=== PATIENT | female | born 1955 | race Caucasian/White ===

== ENCOUNTER 2023-10-18 14:17 | Inpatient (IN) | payer MEDICARE, OTHER, SELFPAY ==
[2023-10-18] VITALS (25 sets, daily range): BP systolic 158–188; BP diastolic 91–129; PULSE 52–65; RESP 16–20; TEMP 36.4–36.6; O2SAT 92–100; BMI 30.2; BMI 31.0
--- NOTE | 2023-10-18 15:05 | ED_ITS ---
HPI - General Adult General Chief complaint: Weakness Stated complaint: can't put weight on R leg Time Seen by Provider: 10/18/23 14:58 History of Present Illness HPI narrative: Patient presents to the emergency department complaining of right leg weakness. Patient states yesterday while on a walk it became hard to use her right leg. Patient has no pain in her leg at that time and continues to not have any pain however weakness has gotten worse. Patient has no facial droop and equal drip strength. 61-year-old woman presenting to the emergency department concern of right leg weakness. She is having increased difficulty of bearing weight on this right leg. Symptoms seem to have begun with some right-sided leg weakness yesterday morning on a walk with her . He accompanies her here today. She has not experienced any pain. He did notice her to be dragging her right leg a little bit while they were walking. I noticed her to be slurring her speech a little on initial evaluation and he says yes that seems to have began yesterday as well. Underlying history of diabetes. Also history of renal failure to some degree with last creatinine measured over 4. She is in line for renal transplant. Is receiving this care through [facility] but is an [facility] patient in clinic. In 2015 she did have a small, as gestured I believe left-sided stroke and there is a clot present that has been followed with [place]. No difficulty breathing or sensation of tongue swelling or throat closure. No seizure history Related Data Home Medications ?Medication ?Instructions ?Recorded ?Confirmed aspirin 325 mg tablet,delayed 325 mg PO DAILY 10/18/23 10/18/23 release atorvastatin 40 mg tablet 40 mg PO DAILY 10/18/23 10/18/23 calcium citrate 500 mg PO DAILY 10/18/23 10/18/23 cholecalciferol (vitamin D3) 25 25 mcg PO DAILY 10/18/23 10/18/23 mcg (1,000 unit) capsule glimepiride 1 mg tablet 1 mg PO DAILY 10/18/23 10/18/23 latanoprost 0.005 % eye drops 1 drp ophthalmic (eye) QPM 10/18/23 10/18/23 losartan 100 mg tablet 100 mg PO DAILY 10/18/23 10/18/23 tyghfxog-xco-qtogp2 250 mg-dha 90 1 cap PO DAILY 10/18/23 10/18/23 mg-epa 160 sp-ovdl-opuw-zeax capsule (Ocuvite Adult 50 Plus) omega 4-xqm-dzm-fish oil 1,000 mg 1 cap PO DAILY 10/18/23 10/18/23 (120 mg-180 mg) capsule (Fish Oil) sitagliptin phosphate 25 mg tablet 25 mg PO DAILY 10/18/23 10/18/23 (Januvia) timolol maleate 0.5 % eye drops 1 drp ophthalmic (eye) BID 10/18/23 10/18/23 Allergies Allergy/AdvReac Type Severity Reaction Status Date / Time No Known Drug Allergies Allergy Verified 10/18/23 14:27 Review of Systems Status of ROS: Reports: 6 or more systems reviewed and unremarkable except as noted in History and below [facility] Social History Smoking Status: Never smoker Do you use any of these nicotine containing products: None How often do you have a drink containing alcohol: never How often do you have six or more drinks on one occasion: Never AUDIT-C Alcohol total score: 0 Non-prescribed substance use: denies use service: No Exam 2 Narrative: Exam Narrative: Pleasant. Rather still. A little distracted. Does seem to be slurring her speech; mildly dysarthric. Does not seem to have trouble with cognition however. At rest there appears to be some downgoing of the right side of her face/mouth. Is able to smile though with equal motor over face. Has not lost upper motor of her face. Pupils are brisk and equal. Head is atraumatic. Lungs are clear. Heart in slow but regular rate and rhythm. Holding her right arm seems to be favoring it a little bit across her lap. Is mildly weak throughout her right arm and right leg relative to the left. 1+ patellar DTR on the right and 2 on the left. No apparent sensory loss. Const: Vital Signs, click to edit/add: Vital Signs - 24 hr 10/18/23 14:20 10/18/23 16:14 10/18/23 16:15 Temperature 97.5 F L Pulse Rate 54 L 60 Pulse Rate [Left P ulse Oximeter] 61 Respiratory Rate 18 Blood Pressure 158/92 H Blood Pressure [Le ft Upper Arm] 176/103 H Pulse Oximetry 99 97 98 Oxygen Delivery Me thod Room Air 10/18/23 16:30 10/18/23 17:20 10/18/23 17:21 Temperature Pulse Rate 64 58 L 65 Pulse Rate [Left P ulse Oximeter] Respiratory Rate Blood Pressure 185/118 H Blood Pressure [Le ft Upper Arm] Pulse Oximetry 95 98 98 Oxygen Delivery Me thod 10/18/23 17:24 10/18/23 17:30 10/18/23 17:32 Temperature Pulse Rate 60 62 63 Pulse Rate [Left P ulse Oximeter] Respiratory Rate Blood Pressure 180/104 H 165/102 H Blood Pressure [Le ft Upper Arm] Pulse Oximetry 97 98 96 Oxygen Delivery Me thod 10/18/23 17:45 10/18/23 18:00 10/18/23 18:02 Temperature Pulse Rate 64 62 63 Pulse Rate [Left P ulse Oximeter] Respiratory Rate Blood Pressure 168/99 H Blood Pressure [Le ft Upper Arm] Pulse Oximetry 98 95 96 Oxygen Delivery Me thod 10/18/23 18:15 10/18/23 18:30 10/18/23 18:32 Temperature Pulse Rate 61 60 63 Pulse Rate [Left P ulse Oximeter] Respiratory Rate Blood Pressure 188/129 H Blood Pressure [Le ft Upper Arm] Pulse Oximetry 100 99 99 Oxygen Delivery Me thod 10/18/23 18:33 10/18/23 18:45 Temperature Pulse Rate 61 61 Pulse Rate [Left P ulse Oximeter] Respiratory Rate Blood Pressure Blood Pressure [Le ft Upper Arm] Pulse Oximetry 96 98 Oxygen Delivery Me thod Documenting provider has reviewed patient's vital signs: yes Course Vital Signs Vital signs: Initial Vital Signs Temperature 97.5 F L 10/18/23 14:20 Temperature Source Temporal Artery Scan 10/18/23 14:20 Pulse Rate 61 10/18/23 14:20 Pulse Rhythm Regular 10/18/23 14:20 Pulse Strength 3+ Normal 10/18/23 14:20 Respiratory Rate 18 10/18/23 14:20 Blood Pressure 176/103 H 10/18/23 14:20 Blood Pressure Mean 127 H 10/18/23 14:20 Blood Pressure Position Sitting 10/18/23 14:20 Pulse Oximetry 99 10/18/23 14:20 Oxygen Delivery Method Room Air 10/18/23 14:20 Vital Signs Temperature 97.5 F L 10/18/23 14:20 Pulse Rate 61 10/18/23 14:20 Respiratory Rate 18 10/18/23 14:20 Blood Pressure 176/103 H 10/18/23 14:20 Pulse Oximetry 99 10/18/23 14:20 Oxygen Delivery Method Room Air 10/18/23 14:20 Temperature 97.5 F L 10/18/23 14:20 Pulse Rate 61 10/18/23 18:45 Respiratory Rate 18 10/18/23 14:20 Blood Pressure 188/129 H 10/18/23 18:32 Pulse Oximetry 98 10/18/23 18:45 Oxygen Delivery Method Room Air 10/18/23 14:20 Medications Administered Medications: Discontinued Medications Generic Name Dose Route Start Last Admin Trade Name Freq PRN Reason Stop Dose Admin Amlodipine Besylate 2.5 mg 10/18/23 18:52 10/18/23 19:05 Amlodipine 5 Mg Tablet PO 10/18/23 18:53 2.5 mg ONCE ONE Administration Sodium Chloride 1,000 mls @ 1,000 mls/hr 10/18/23 15:20 10/18/23 19:00 0.9 % Sodium Chloride 1000 Ml IV 10/18/23 16:19 Infused .Q1H ONE Infusion Medical Decision Making MDM Narrative Medical decision making narrative: I would presume thromboembolic stroke. Duration is outside window of immediate intervention however imaging would be warranted. Does already apparently have a history of stroke. Is only maintained on daily aspirin. Maintain permissive hypertension the short term. IV hydration. Localizing symptoms I think suggest again infection or chemistry anomalies, seizure. No known neurological abnormalities like MS. Did discuss with Stroke Neuro due to duration. Decided to proceed with head CT does looking for any evidence of a bleed. And pending this result move forward with MRI and MRA noncontrast of the brain. In light of poor renal function, reviewed imaging with contrast that was done in [place] apparently this last February without significant vascular anomaly. Stroke Neuro reviewed noting some left MCA atherosclerosis and. 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 With these vascular studies in mind proceeded only with a non contrasted imaging as noted above By the time was ready for MRI, still pending CT imaging so this was canceled preferring MRI evaluation. MRI without clear findings of acute anomaly. Reviewed these images with Stroke Neuro. Unconvinced the blood pressure is is contributing to findings here today but recommendations would be to keep that around 180/100 or a little below. Anticipate admission for continued monitoring, repeat evaluation and likely repeat MRI if there is some evolution of infarct; more apparent on repeat imaging? Continue to hydrate. TECHNIQUE: Multiplanar T1, T2, FLAIR and diffusion-weighted imaging. FINDINGS: Moderate generalized volume loss. Patchy and confluent T2/FLAIR signal hyperintensity within the white matter of both cerebral hemispheres and josh consistent with chronic deep white matter small vessel ischemic changes. No intracranial hemorrhage. Compensatory mild dilatation ventricular system. Intracranial vascular flow voids are preserved. No mass effect. No midline shift. No restricted diffusion to suggest acute ischemia. Few scattered foci of susceptibility artifact within both cerebral hemispheres may represent chronic micro hemorrhages or mineral deposition. Arachnoid granulation adjacent to the right lateral frontal lobe. Bilateral orbits are unremarkable. Normal appearing sella. Visualized paranasal sinuses and mastoid air cells are unremarkable. IMPRESSION: 1. No acute intracranial abnormality. 2. Moderate generalized cerebral volume loss. Chronic deep white matter small vessel ischemic changes. 3. Scattered foci of susceptibility artifact within both cerebral hemispheres may represent chronic microhemorrhages or mineral deposition TECHNIQUE: [id number] MRA. 3D reconstructed images. FINDINGS: Bilateral carotid siphons and nez perce Cook are patent. There is a small 3 mm focal outpouching arising from the ophthalmic segment of the right intracranial ICA directed superiorly (best appreciated on series I image 108). Finding may represent a tiny aneurysm or prominent infundibulum. Visualized bilateral JUAN F and MCA circulations are patent with no focal high-grade stenosis or aneurysm. Bilateral EQUIPMENT SERVICE TECHNICIAN circulations are patent with no stenosis or aneurysm. Patent codominant vertebrobasilar system. IMPRESSION: 1. Small 3 mm focal outpouching arising from the ophthalmic segment of the right intracranial ICA directed superiorly may represent a prominent infundibulum or tiny aneurysm. Given the size, recommend interval follow-up in 6-12 months to confirm stability. Also consider consultation with neurointerventional radiology for follow-up. Outpatient consultation with the [facility] Neurointerventional Service can be arranged by calling [phone]. 2. Remainder of the MRA head is normal. Discussed with hospitalist for admission. Will give low-dose amlodipine. Medical Records Medical records reviewed: Yes I reviewed the patient's medical records Lab Data Lab results reviewed: Yes I reviewed the patient's lab results Labs: Lab Results 10/18/23 10/18/23 Range/Units 16:02 17:23 WBC 11.89 H (4.50-11.00) K/uL RBC 4.02 (4.00-5.20) m/uL Hgb 11.6 L (12.0-16.0) gm/dL Hct 35.1 (33.0-51.0) % MCV 87 (80-100) fL MCH 29 (26-34) pg MCHC 33 (32-36) gm/dL RDW Coeff of Leanne 13.4 (11.5-15.5) % Plt Count 301 (140-440) K/uL Neut % (Auto) 70.0 (42.0-72.0) % Lymph % (Auto) 18.4 L (20-44) % [place] % (Auto) 7.1 (0.0-11.0) % Eos % (Auto) 3.3 (0.0-7.0) % Baso % (Auto) 0.6 (0.0-3.0) % Neut # (Auto) 8.30 H (1.7-7.0) K/uL Lymph # (Auto) 2.20 (0.90-2.90) K/uL [place] # (Auto) 0.80 (0.00-0.90) K/UL Eos # (Auto) 0.40 (0.00-0.50) K/uL Baso # (Auto) 0.10 (0.00-0.30) K/uL Abs Immat Gran (auto) 0.10 (0.00-0.30) K/uL Imm/Tot Granulo (auto) 0.6 % Sodium 140 (135-149) mmol/L Potassium 4.0 (3.6-5.1) mmol/L Chloride 104 (96-114) mmol/L Carbon Dioxide 25 (20-32) mmol/L Anion Gap 11 (7-15) mEq/L BUN 48 H (7-30) mg/dL Creatinine 4.4 H (0.5-1.5) mg/dL Estimated Creat Clear 9.54 Estimated GFR 10 ml/min Glucose 115 (60-115) mg/dL Calcium 10.5 (8.4-10.6) mg/dL Magnesium 2.1 (1.5-2.6) mg/dL NT-Pro-B Natriuret Pep 389 pg/mL SARS-CoV-2 (PCR) Negative SARS-CoV-2 (Negative) Influenza Type A (PCR) Negative PCR FLU A (Negative) Influenza Type B (PCR) Negative PCR FLU B (Negative) Discharge Plan Discharge Clinical Impression: Acute right-sided weakness, Dysarthria, Hypertension Patient Disposition: Admitted As Observation Condition: Stable
[2023-10-18 16:08] LABS: Basophils Percent Auto 0.6 % (0.0-3.0); Eosinophils Percent Auto 3.3 % (0.0-7.0); Hematocrit 35.1 % (33.0-51.0); Hemoglobin* 11.6 gm/dL (12.0-16.0); Immature Granulocytes Pct Auto 0.6 %; Lymphocytes Percent Auto 18.4 % (20-44); Mean Corpuscular HGB Conc 33 gm/dL (32-36); Mean Corpuscular Hemoglobin 29 pg (26-34); Mean Corpuscular Volume 87 fL (80-100); Monocytes Percent Auto 7.1 % (0.0-11.0); Platelet Count* 301 K/uL (140-440); RDW Coefficient of Variation % 13.4 % (11.5-15.5); Red Blood Count 4.02 m/uL (4.00-5.20); White Blood Count* 11.89 K/uL (4.50-11.00)
[2023-10-18 16:10] LABS: Slide Review Reflex No
[2023-10-18 16:21] LABS: Chloride* 104 mmol/L (96-114); Sodium* 140 mmol/L (135-149)
[2023-10-18 16:23] LABS: Creatinine* 4.4 mg/dL (0.5-1.5); Est. Creatinine Clearance* 9.54; Estimated Glomerular Filt Rate 10 ml/min
[2023-10-18 16:24] LABS: Anion Gap 11 mEq/L (7-15); Blood Urea Nitrogen* 48 mg/dL (7-30); Calcium* 10.5 mg/dL (8.4-10.6); Carbon Dioxide* 25 mmol/L (20-32); Glucose* 115 mg/dL (60-115); Magnesium* 2.1 mg/dL (1.5-2.6)
--- NOTE | 2023-10-18 16:25 | CRLHL7_ITS ---
For Patients: As a result of the Century Cures Act, medical imaging exams and procedure reports are released immediately into your electronic medical record. You may view this report before your referring provider. If you have questions, please contact your health care provider. INDICATION: Right-sided weakness. COMPARISON: None. TECHNIQUE: [id number] MRA. 3D reconstructed images. FINDINGS: Bilateral carotid siphons and sauk-suiattle Cook are patent. There is a small 3 mm focal outpouching arising from the ophthalmic segment of the right intracranial ICA directed superiorly (best appreciated on series I image 108). Finding may represent a tiny aneurysm or prominent infundibulum. Visualized bilateral JUAN F and MCA circulations are patent with no focal high-grade stenosis or aneurysm. Bilateral COMMUNICATIONS PROJECT LEAD circulations are patent with no stenosis or aneurysm. Patent codominant vertebrobasilar system. IMPRESSION: 1. Small 3 mm focal outpouching arising from the ophthalmic segment of the right intracranial ICA directed superiorly may represent a prominent infundibulum or tiny aneurysm. Given the size, recommend interval follow-up in 6-12 months to confirm stability. Also consider consultation with neurointerventional radiology for follow-up. Outpatient consultation with the [facility] Neurointerventional Service can be arranged by calling [phone]. 2. Remainder of the MRA head is normal. Dictated by Mitchel Bustos MD @ 10/18/2023 5:36:15 PM (Electronically Signed)
--- NOTE | 2023-10-18 16:25 | CRLHL7_ITS ---
For Patients: As a result of the Century Cures Act, medical imaging exams and procedure reports are released immediately into your electronic medical record. You may view this report before your referring provider. If you have questions, please contact your health care provider. INDICATION: Right-sided weakness. Speech slurring. COMPARISON: None available at time of interpretation. TECHNIQUE: Multiplanar T1, T2, FLAIR and diffusion-weighted imaging. FINDINGS: Moderate generalized volume loss. Patchy and confluent T2/FLAIR signal hyperintensity within the white matter of both cerebral hemispheres and josh consistent with chronic deep white matter small vessel ischemic changes. No intracranial hemorrhage. Compensatory mild dilatation ventricular system. Intracranial vascular flow voids are preserved. No mass effect. No midline shift. No restricted diffusion to suggest acute ischemia. Few scattered foci of susceptibility artifact within both cerebral hemispheres may represent chronic micro hemorrhages or mineral deposition. Arachnoid granulation adjacent to the right lateral frontal lobe. Bilateral orbits are unremarkable. Normal appearing sella. Visualized paranasal sinuses and mastoid air cells are unremarkable. IMPRESSION: 1. No acute intracranial abnormality. 2. Moderate generalized cerebral volume loss. Chronic deep white matter small vessel ischemic changes. 3. Scattered foci of susceptibility artifact within both cerebral hemispheres may represent chronic microhemorrhages or mineral deposition Dictated by Mitchel Bustos MD @ 10/18/2023 5:32:02 PM (Electronically Signed)
[2023-10-18 16:34] LABS: NT Pro B Type NatriureticPept* 389 pg/mL
[2023-10-18] MEDS: 0.9 % SODIUM CHLORIDE 1000 ml 1,000 ML IV (16:35)
--- NOTE | 2023-10-18 16:47 | ED.NURSE ---
Pt is alert and oriented x3 at this time
[2023-10-18 18:14] LABS: PCR FLU A Negative PCR FLU A (Negative); PCR FLU B Negative PCR FLU B (Negative); SARS PCR* Negative SARS-CoV-2 (Negative)
[2023-10-18] MEDS: AMLODIPINE 5 MG TABLET 2.5 MG PO (19:05)
--- NOTE | 2023-10-18 19:35 | ED.NURSE ---
Report given to dyan MINAYA. Pt to room 255.
[2023-10-18 20:27] LABS: Appearance Urine Cloudy (Clear); Bilirubin Urine Negative (Negative); Blood Urine 1+ (Negative); Color Urine Yellow (Yellow); Glucose Urine Trace (Negative); Ketones Urine Negative (Negative); Leukocyte Esterase Urine 1+ (Negative); Nitrite Urine Negative (Negative); Protein Urine 3+ (Negative); Urobilinogen Urine 0.2 (0.2-1.0); pH Urine 6.5 (5.0-8.5)
--- NOTE | 2023-10-18 20:57 | PM.IMHP1 ---
Hospitalist- H&P: ANAI History of Present Illness Date Seen: 10/18/23 Chief complaint: can't put weight on R leg Narrative: Denita Osuna is a 68 year old female with past medical history of hypertension, DM, CKD stage 5, history of ischemic stroke (2014), history of cerebral and carotid aneurysm, JAJA on CPAP at home, history of right breast cancer status post surgery (2011) who presented to the ED due to symptoms of slurred speech and right-sided weakness. Patient states that she was in her usual state walking with her yesterday around 9:30 p.m. (she usually walks without any assistance or any devices) and then she started to feeling weakness over right lower extremity but still she made it to her bed and she slept. When she woke up the next day at 6 30 a.m. she noticed that her weakness is worse and that her speech is slurred and her brought her to the ED. patient states that her symptoms as similar to those that she suffered during her stroke in 2014. At that time she went to rehab and have weakness improved, almost back to normal. She is not sure what side was weak and 2014 but she she states mostly it was right sided weakness. Patient is on aspirin 325 mg and atorvastatin 40 mg since that time. Her last doses were today morning. Patient is hypertensive SBP in 180s but she denies any headache, visual changes, hearing changes, altered mental status, chest pain, respiratory problems. She denies any recent illnesses or fevers. At the ED, they contacted neuro stroke team who stated that patient is outside the window for thrombolytics, ordered an MRI and an MRA because of her CKD stage 5, both did not show any acute pathology. Review of Systems Status of ROS: Reports: 10 or more systems reviewed and unremarkable except as noted in History and below [facility] Medical History (Updated 10/18/23 @ 22:02 by Mary Roland MD) Hyperlipidemia ?E78.5 - Hyperlipidemia, unspecified (ICD-10) History of right breast cancer ?Z85.3 - Personal history of malignant neoplasm of breast (ICD-10) Carotid artery aneurysm ?I72.0 - Aneurysm of carotid artery (ICD-10) Cerebral aneurysm ?I67.1 - Cerebral aneurysm, nonruptured (ICD-10) JAJA on CPAP ?G47.33 - Obstructive sleep apnea (adult) (pediatric) (ICD-10) History of ischemic stroke ?Z86.73 - Personal history of transient ischemic attack (TIA), and cerebral infarction without residual deficits (ICD-10) CKD stage 5 secondary to hypertension ?I12.0 - Hypertensive chronic kidney disease with stage 5 chronic kidney disease or end stage renal disease (ICD-10) ?N18.5 - Chronic kidney disease, stage 5 (ICD-10) Diabetes ?E11.9 - Type 2 diabetes mellitus without complications (ICD-10) Social History Smoking Status: Never smoker Do you use any of these nicotine containing products: None How often do you have a drink containing alcohol: never How often do you have six or more drinks on one occasion: Never AUDIT-C Alcohol total score: 0 Non-prescribed substance use: denies use service: No Meds Home Medications and Allergies Home Medications ?Medication ?Instructions ?Recorded ?Confirmed ?Type aspirin 325 mg tablet,delayed 325 mg PO DAILY 10/18/23 10/18/23 History release atorvastatin 40 mg tablet 40 mg PO DAILY 10/18/23 10/18/23 History calcium citrate 500 mg PO DAILY 10/18/23 10/18/23 History cholecalciferol (vitamin D3) 25 25 mcg PO DAILY 10/18/23 10/18/23 History mcg (1,000 unit) capsule glimepiride 1 mg tablet 1 mg PO DAILY 10/18/23 10/18/23 History latanoprost 0.005 % eye drops 1 drp ophthalmic (eye) QPM 10/18/23 10/18/23 History losartan 100 mg tablet 100 mg PO DAILY 10/18/23 10/18/23 History mrphoivx-hzm-whahc9 250 mg-dha 90 1 cap PO DAILY 10/18/23 10/18/23 History mg-epa 160 wn-xvex-ygvx-zeax capsule (Ocuvite Adult 50 Plus) omega 1-rvg-sip-fish oil 1,000 mg 1 cap PO DAILY 10/18/23 10/18/23 History (120 mg-180 mg) capsule (Fish Oil) sitagliptin phosphate 25 mg tablet 25 mg PO DAILY 10/18/23 10/18/23 History (Januvia) timolol maleate 0.5 % eye drops 1 drp ophthalmic (eye) BID 10/18/23 10/18/23 History Allergies Allergy/AdvReac Type Severity Reaction Status Date / Time No Known Drug Allergies Allergy Verified 10/18/23 14:27 Exam Narrative: Exam Narrative: Physical exam GENERAL: Comfortable, no acute distress. HEAD AND NECK: Atraumatic, normocephalic CARDIOVASCULAR: RRR. Normal S1, S2. No murmurs. RESPIRATORY: Clear to auscultation B/L. Good air entry B/L. No wheezes or rhonchi. GASTROINTESTINAL: Not distended, not tender to palpation. NEUROLOGY: Alert, awake, oriented X 4. Slurred speech. Right lower extremity weakness, 4/5 (weakness against resistance), no drifting, strong dorsiflexion and extension. 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 Very mild drifting of right upper extremity. Left side was normal and no facial droop. PSYCH: Normal mood, normal affect. Const: Vital Signs, click to edit/add: Vital Signs - 24 hr 10/18/23 14:20 10/18/23 16:14 10/18/23 16:15 Temperature 97.5 F L Pulse Rate 54 L 60 Pulse Rate [Left P ulse Oximeter] 61 Respiratory Rate 18 Blood Pressure 158/92 H Blood Pressure [Le ft Upper Arm] 176/103 H Pulse Oximetry 99 97 98 Oxygen Delivery Me od Room Air 10/18/23 16:30 10/18/23 17:20 10/18/23 17:21 Temperature Pulse Rate 64 58 L 65 Pulse Rate [Left P ulse Oximeter] Respiratory Rate Blood Pressure 185/118 H Blood Pressure [Le ft Upper Arm] Pulse Oximetry 95 98 98 Oxygen Delivery Me thod 10/18/23 17:24 10/18/23 17:30 10/18/23 17:32 Temperature Pulse Rate 60 62 63 Pulse Rate [Left P ulse Oximeter] Respiratory Rate Blood Pressure 180/104 H 165/102 H Blood Pressure [Le ft Upper Arm] Pulse Oximetry 97 98 96 Oxygen Delivery Mo thod 10/18/23 17:45 10/18/23 18:00 10/18/23 18:02 Temperature Pulse Rate 64 62 63 Pulse Rate [Left P ulse Oximeter] Respiratory Rate Blood Pressure 168/99 H Blood Pressure [Le ft Upper Arm] Pulse Oximetry 98 95 96 [facility] 18:15 10/18/23 18:30 10/18/23 18:32 Temperature Pulse Rate 61 60 63 Pulse Rate [Left P ulse Oximeter] Respiratory Rate Blood Pressure 188/129 H Blood Pressure [Le ft Upper Arm] Pulse Oximetry 100 99 99 [facility] 10/18/23 18:33 10/18/23 18:45 10/18/23 19:00 Temperature Pulse Rate 61 61 64 Pulse Rate [Left P ulse Oximeter] Respiratory Rate Blood Pressure Blood Pressure [Le ft Upper Arm] Pulse Oximetry 96 98 99 [facility] 10/18/23 19:03 10/18/23 19:15 Temperature Pulse Rate 65 61 Pulse Rate [Left P ulse Oximeter] Respiratory Rate Blood Pressure 172/103 H Blood Pressure [Le ft Upper Arm] Pulse Oximetry 99 97 Oxygen Delivery [facility] Hospitalist - H&P: Result Labs Labs: Short CBC 10/18/23 Range/Units 16:02 WBC 11.89 H (4.50-11.00) K/uL Hgb 11.6 L (12.0-16.0) gm/dL Hct 35.1 (33.0-51.0) % Plt Count 301 (140-440) K/uL BMP 10/18/23 16:02 Sodium 140 Potassium 4.0 Chloride 104 Carbon Dioxide 25 BUN 48 H Creatinine 4.4 H Glucose 115 Calcium 10.5 Urine 10/18/23 Range/Units Unknown Urine Color Yellow (Yellow) Urine Appearance Cloudy A (Clear) Urine pH 6.5 (5.0-8.5) Ur Specific R[place]auer 1.020 (1.000-1.030) Urine Protein 3+ A (Negative) Urine Glucose (UA) Trace A (Negative) Imaging MRI - head: Radiologist's impression: Brain MRI TECHNIQUE: Multiplanar T1, T2, FLAIR and diffusion-weighted imaging. FINDINGS: Moderate generalized volume loss. Patchy and confluent T2/FLAIR signal hyperintensity within the white matter of both cerebral hemispheres and josh consistent with chronic deep white matter small vessel ischemic changes. No intracranial hemorrhage. Compensatory mild dilatation ventricular system. Intracranial vascular flow voids are preserved. No mass effect. No midline shift. No restricted diffusion to suggest acute ischemia. Few scattered foci of susceptibility artifact within both cerebral hemispheres may represent chronic micro hemorrhages or mineral deposition. Arachnoid granulation adjacent to the right lateral frontal lobe. Bilateral orbits are unremarkable. Normal appearing sella. Visualized paranasal sinuses and mastoid air cells are unremarkable. IMPRESSION: 1. No acute intracranial abnormality. 2. Moderate generalized cerebral volume loss. Chronic deep white matter small vessel ischemic changes. 3. Scattered foci of susceptibility artifact within both cerebral hemispheres may represent chronic microhemorrhages or mineral deposition Dictated by Mitchel Bustos MD @ 10/18/2023 5:32:02 PM Brain MRA TECHNIQUE: Bzfx-sj-drkafx MRA. 3D reconstructed images. FINDINGS: Bilateral carotid siphons and [place] are patent. There is a small 3 mm focal outpouching arising from the ophthalmic segment of the right intracranial ICA directed superiorly (best appreciated on series I image 108). Finding may represent a tiny aneurysm or prominent infundibulum. Visualized bilateral JUAN F and MCA circulations are patent with no focal high-grade stenosis or aneurysm. Bilateral NAIL EXPERT circulations are patent with no stenosis or aneurysm. Patent codominant vertebrobasilar system. IMPRESSION: 1. Small 3 mm focal outpouching arising from the ophthalmic segment of the right intracranial ICA directed superiorly may represent a prominent infundibulum or tiny aneurysm. Given the size, recommend interval follow-up in 6-12 months to confirm stability. Also consider consultation with neurointerventional radiology for follow-up. Outpatient consultation with the [facility] Neurointerventional Service can be arranged by calling [phone]. 2. Remainder of the MRA head is normal. Dictated by Mitchel Bustos MD @ 10/18/2023 5:36:15 PM Assessment and Plan Assessment and plan (1) Acute right-sided weakness: Problem comment: -suspect acute ischemic stroke versus recrudescence of her previous stroke. -ED contacted neuro stroke team who stated that patient is outside the window for thrombolytics. -Brain MRI and an MRA because of her CKD stage 5, both did not show any acute pathology. -Treat BP only if > 180/100 per Neurologist recs (contacted by ED). -will keep NPO for now except for necessary oral meds. Needs speech evaluation -continue aspirin 325 mg (home dose) and statin. -neurologist recommended repeating brain MRI tomorrow. -ordered PT/OT Status: Acute (2) History of ischemic stroke: Problem comment: -ischemic stroke in 2014, followed by 3 months of PT/rehab. -patient states that she almost does not have any residual deficits from her previous stroke. -on aspirin 325 mg and atorvastatin 40 at home. Status: Acute (3) Hypertensive emergency: Problem comment: - On full dose ARB at home - previously on thiazide but stopped as she is sensitive to dehydration -S/P amlodipine 2.5 mh once at ED -Treat BP only if > 180/100 per Neurologist recs (contacted by ED). -will hold losartan for now, mostly to be resumed tomorrow after permissive hypertension is finished and her BMP labs at baseline. -Patient was seen by her room cooler installer a couple of days ago and the are continuing full-dose of losartan as she has no side effects. Status: Acute (4) Diabetes: Problem comment: - Hemoglobin A1c at 6.7 in Sep 2023 . on low dose, renal dosing for both Januvia and glimepiride. - will start Low dose ISS during this admission. Status: Acute (5) CKD stage 5 secondary to hypertension: Problem comment: -her baseline creatinine is 4.1; she has a glomerular filtration rate of 11 by MDRD giving her stage 5 chronic kidney disease - worsening kidney function this year; creatinine now up to 4s - kidney biopsy consistent with mostly hypertension damage as opposed to diabetes despite nephrotic range urine protein; likely to progress to end stage kidney disease - she is working with [facility] for transplant evaluation; possibly doing a shared partner transplant with her sister as a live donor Status: Chronic (6) JAJA on CPAP: Problem comment: -asked patient to bring her home CPAP. Status: Chronic (7) Cerebral aneurysm: Problem comment: -Cerebral MRA at this admission showed at small 3 mm focal outpouching arising from the ophthalmic segment of the right intracranial ICA directed superiorly may represent a prominent infundibulum or tiny aneurysm. Given the size, radiologist recommends an interval follow-up in 6-12 months to confirm stability. Also to consider consultation with neurointerventional radiology for follow-up. - radiologist recommendation: Outpatient consultation with the [facility] Neurointerventional Service can be arranged by calling [phone]. -will review patient's medical records and check if she is already following neurology/neuro interventional S services as an outpatient. Status: Suspected (8) Hyperlipidemia: Status: Chronic Assessment and Plan: On atorvastatin 40 mg q.day Total Time Spent Total Time Spent: TIME SPENT: TODAY I SPENT 75 MINUTES SEEING THE PATIENT, DISCUSSING THE PATIENT WITH ER STAFF, REVIEWING EXPANSE AND EPIC NOTES/DIAGNOSTICS, DISCUSSING THE CARE PLAN WITH OUR CARE TIME THAT INCLUDES PT/OT, PHARMACY, RT, AND DOCUMENTING MY IMPRESSIONS AND PLAN IN THE MEDICAL RECORD.
[2023-10-18] MEDS: SODIUM CHLORIDE 0.9 % (FLUSH) 10 ML SYRINGE 5 ML IVF (23:47)
[2023-10-18] MEDS: 0.9 % SODIUM CHLORIDE 1000 ml 1,000 ML 75 ML IV (23:47)
[2023-10-19] VITALS (13 sets, daily range): BP systolic 158–183; BP diastolic 86–118; PULSE 55–67; RESP 16–18; TEMP 36.6–36.9; O2SAT 95–99
[2023-10-19] MEDS: timoloL maleate 0.5 % 1 DROP EYE-BOTH ×3 (00:48→20:47)
--- NOTE | 2023-10-19 06:18 | PC.NURSE ---
Pt alert and oriented to self x3. Afebrile. Room air. Pt denies pain, chest pain, SOB, and N/V. Pt?s has facial symmetry, continues to have right sided weakness in right leg and right arm. Pt is up A2 Pivot to commode. Tolerating a NPO diet
[2023-10-19 07:08] LABS: Basophils Percent Auto 0.8 % (0.0-3.0); Eosinophils Percent Auto 2.9 % (0.0-7.0); Hematocrit 36.7 % (33.0-51.0); Hemoglobin* 12.1 gm/dL (12.0-16.0); Immature Granulocytes Pct Auto 0.3 %; Lymphocytes Percent Auto 16.9 % (20-44); Mean Corpuscular HGB Conc 33 gm/dL (32-36); Mean Corpuscular Hemoglobin 29 pg (26-34); Mean Corpuscular Volume 87 fL (80-100); Monocytes Percent Auto 6.3 % (0.0-11.0); Neutrophils Percent Auto 72.8 % (42.0-72.0); Platelet Count* 196 K/uL (140-440); RDW Coefficient of Variation % 13.6 % (11.5-15.5); Red Blood Count 4.22 m/uL (4.00-5.20); White Blood Count* 11.97 K/uL (4.50-11.00)
[2023-10-19 07:22] LABS: Albumin* 4.2 g/dL (3.3-5.0)
[2023-10-19 07:23] LABS: Chloride* 109 mmol/L (96-114); Potassium* 3.7 mmol/L (3.6-5.1); Sodium* 141 mmol/L (135-149)
[2023-10-19 07:25] LABS: Anion Gap 9 mEq/L (7-15); Aspartate Amino Transferase* 33 U/L (12-35); Bilirubin Total* 0.7 mg/dL (0.1-1.5); Carbon Dioxide* 23 mmol/L (20-32); Creatinine* 3.9 mg/dL (0.5-1.5); Est. Creatinine Clearance* 10.77; Estimated Glomerular Filt Rate 12 ml/min; Total Protein* 7.3 g/dL (6.0-8.3)
[2023-10-19 07:26] LABS: Alanine Aminotransferase* 35 U/L (4-35); Alkaline Phosphatase* 63 U/L (40-150); Blood Urea Nitrogen* 45 mg/dL (7-30); Calcium* 9.4 mg/dL (8.4-10.6); Glucose* 117 mg/dL (60-115); Magnesium* 1.8 mg/dL (1.5-2.6); Phosphorus* 4.4 mg/dL (2.5-4.5)
[2023-10-19 08:13] LABS: Slide Review Reflex No
[2023-10-19] MEDS: ATORVASTATIN CALCIUM 40 MG TABLET PO (08:51)
[2023-10-19] MEDS: ASPIRIN EC 325 MG TABLET PO (08:51)
--- NOTE | 2023-10-19 10:05 | CRLHL7_ITS ---
For Patients: As a result of the Cures Act, medical imaging exams and procedure reports are released immediately into your electronic medical record. You may view this report before your referring provider. If you have questions, please contact your health care provider. INDICATION: Worsening right hemiparesis. TECHNIQUE: CT of the head without contrast. Coronal and sagittal reformats are included. COMPARISON: Brain MRI from 10/18/2023. FINDINGS: No CT evidence of acute cortical infarct. No loss of romero white matter differentiation. No hyperdense vessels to suggest intracranial thrombus. No acute intracranial hemorrhage. No mass effect or midline shift. No hydrocephalus or extra-axial collections. Patchy white matter hypoattenuation, typical for chronic microvascular ischemic change. Intracranial vascular calcifications. Moderate generalized parenchymal volume loss. No acute osseous abnormalities. Mild maxillary sinus mucosal thickening. Paranasal sinuses otherwise clear. Mild leftward nasal septal deviation. Advanced right TMJ arthrosis. Normal soft tissues. IMPRESSION: IMPRESSION:1. No CT evidence of acute cortical infarct. No acute intracranial hemorrhage. No other acute intracranial findings. Please note that all CT scans at this facility use dose modulation, iterative reconstruction, and/or weight-based dosing when appropriate to reduce radiation dose to as low as reasonably achievable. Dictated by Aiden Camejo MD @ 10/19/2023 11:26:49 AM (Electronically Signed)
[2023-10-19] MEDS: CLOPIDOGREL 75 MG TABLET 300 MG PO (11:09)
[2023-10-19 11:24] LABS: Cholesterol* 182 mg/dL (90-199)
[2023-10-19 11:25] LABS: HDL Cholesterol* 31 mg/dL (>=50); LDL Cholesterol Calculated 67 mg/dL (<100)
[2023-10-19 11:26] LABS: Triglycerides* 421 mg/dL (40-149)
[2023-10-19] MEDS: 0.9 % SODIUM CHLORIDE 1000 ml 1,000 ML 125 ML IV ×2 (14:10→23:02)
--- NOTE | 2023-10-19 14:49 | PC.NURSE ---
(Shift [id number]): Pt is alert and oriented. Pt is hypertensive, MD aware, continue to hold blood pressure medications. Otherwise other vitals within normal limits. Speech is slurred and grumbled with slight right facial droop. She is flaccid on the right side extremities, pt weaker throughout the shift, MD updated. She is able to take her medications with sips of liquids and tolerates well. MRI needs to be completed early next week per MD. Pt transfers with ceiling lift. Neuro consult completed, see hospitalist orders.
--- NOTE | 2023-10-19 15:30 | PM.IMPN1 ---
Progress Note: A&P Assessment and plan (1) Acute right-sided weakness: Problem details: -suspect acute ischemic stroke versus recrudescence of her previous stroke. -ED contacted neuro stroke team who stated that patient is outside the window for thrombolytics. -Brain MRI and an MRA because of her CKD stage 5, both did not show any acute pathology. -Treat BP only if > 180/100 per Neurologist recs (contacted by ED). -will keep NPO for now except for necessary oral meds. Needs speech evaluation -continue aspirin 325 mg (home dose) and statin. -neurologist recommended repeating brain MRI tomorrow since we do not have the availability, it is scheduled for Saturday. -ordered PT/OT/ST -patient and are agreeable to consider transitional care services verses inpatient rehabilitation -repeat stroke neural consultation 10/19/2023 recommend MRI on Saturday10/21/2023, dual anti-platelet therapy by adding clopidogrel 300 mg x 1 dose today and 75 mg daily thereafter for at least a month, recheck lipid panel and consider increasing dose of atorvastatin from usual dose of 40 mg daily to 80 mg once daily. Status: Acute (2) History of ischemic stroke: Problem details: -ischemic stroke in 2014, followed by 3 months of PT/rehab. -patient states that she almost does not have any residual deficits from her previous stroke. -on aspirin 325 mg and atorvastatin 40 at home. Status: Acute (3) Hypertensive emergency: Problem details: - On full dose ARB at home - previously on thiazide but stopped as she is sensitive to dehydration -S/P amlodipine 2.5 mh once at ED -Treat BP only if > 180/100 per Neurologist recs (contacted by ED). -will hold losartan for now, mostly to be resumed tomorrow after permissive hypertension is finished and her BMP labs at baseline. -Patient was seen by her hotel service manager a couple of days prior to admission on 10/18/2023 and is continuing full-dose of losartan as she has no side effects, although losartan is currently on hold. Status: Acute (4) Diabetes: Problem details: - Hemoglobin A1c at 6.7 in Sep 2023 . on low dose, renal dosing for both Januvia and glimepiride. - will start Low dose ISS during this admission. Status: Acute (5) CKD stage 5 secondary to hypertension: Problem details: -her baseline creatinine is 4.1; she has a glomerular filtration rate of 11 by MDRD giving her stage 5 chronic kidney disease - worsening kidney function this year; creatinine now up to 4s - kidney biopsy consistent with mostly hypertension damage as opposed to diabetes despite nephrotic range urine protein; likely to progress to end stage kidney disease - she is working with [facility] for transplant evaluation; possibly doing a shared partner transplant with her sister as a live donor Status: Chronic (6) JAJA on CPAP: Problem details: -asked patient to bring her home CPAP. Status: Chronic (7) Cerebral aneurysm: Problem details: -Cerebral MRA at this admission showed at small 3 mm focal outpouching arising from the ophthalmic segment of the right intracranial ICA directed superiorly may represent a prominent infundibulum or tiny aneurysm. Given the size, radiologist recommends an interval follow-up in 6-12 months to confirm stability. Also to consider consultation with neurointerventional radiology for follow-up. -radiologist recommendation: Outpatient consultation with the [facility] Neurointerventional Service can be arranged by calling [phone]. -is already following neurology services as an outpatient. Status: Suspected (8) Hyperlipidemia: Problem details: -if repeat LDL is greater than 70 then consider increasing atorvastatin from usual dose of 40 mg daily to 80 mg daily Status: Chronic Plan 1. Reviewed impression with patient and . 2. Reviewed recommendations with patient and . 3. Answered their questions are satisfaction. 4. They are agreeable with above stated plans and recommendations. Time Spent With Patient Total time spent: 45 minutes Subjective Date Seen: 10/19/23 Interval history: Admission history of present illness: ?68 year old female with past medical history of hypertension, DM, CKD stage 5, history of ischemic stroke (2014), history of cerebral and carotid aneurysm, JAJA on CPAP at home, history of right breast cancer status post surgery (2011) who presented to the ED due to symptoms of slurred speech and right-sided weakness. Patient states that she was in her usual state walking with her yesterday around 9:30 p.m. (she usually walks without any assistance or any devices) and then she started to feeling weakness over right lower extremity but still she made it to her bed and she slept. When she woke up the next day at 6 30 a.m. she noticed that her weakness is worse and that her speech is slurred and her brought her to the ED. patient states that her symptoms as similar to those that she suffered during her stroke in 2014. At that time she went to rehab and have weakness improved, almost back to normal. She is not sure what side was weak and 2015 but she she states mostly it was right sided weakness. Patient is on aspirin 325 mg and atorvastatin 40 mg since that time. Her last doses were today morning. Patient is hypertensive SBP in 180s but she denies any headache, visual changes, hearing changes, altered mental status, chest pain, respiratory problems. She denies any recent illnesses or fevers. At the ED, they contacted neuro stroke team who stated that patient is outside the window for thrombolytics, ordered an MRI and an MRA because of her CKD stage 5, both did not show any acute pathology.? Hospital day 2. Patient generally feels tired. Denies pain or discomforts of any sort. Notes that she can hardly use her right upper extremity and right lower extremity at all today compared to yesterday. Indeed on exam she has a dense right hemiparesis. Tolerating sips of water with her oral medications without coughing, sputtering, or gagging. She notes it is hard for her to speak. Her notes the same. adds that he thought perhaps her hearing might have been slightly decreased over the last couple of days because she was not processing or receiving when he was speaking with her about like she normally did. He also notes that over the last couple of days she has been dragging her right foot more. Exam Narrative: Exam Narrative: I examined her in her hospital room. She is lying in her hospital bed. Appears comfortable. Dense right hemiparesis. Unable to use right arm, hand, leg, feet. Left side with excellent strength, rapid alternating motion, [id number]. Slight facial asymmetry with slight right facial droop. Able to drink sips of water without any difficulties. Needs total assist with transfers. Unable to bear any weight due to dense right hemiparesis. Lungs clear to auscultation. Heart tones with regular rhythm. Abdomen is obese with active bowel sounds, soft, nontender. Trace edema bilateral lower extremities. Const: Vital Signs, click to edit/add: Vital Signs - 24 hr 10/18/23 16:14 10/18/23 16:15 10/18/23 16:30 Temperature Pulse Rate 54 L 60 64 Pulse Rate [Pulse Oximeter] Respiratory Rate Blood Pressure 158/92 H Blood Pressure [Le ft Arm] Pulse Oximetry 97 98 [facility] 10/18/23 17:20 10/18/23 17:21 10/18/23 17:24 Temperature Pulse Rate 58 L 65 60 Pulse Rate [Pulse Oximeter] Respiratory Rate Blood Pressure 185/118 H 180/104 H Blood Pressure [Le ft Arm] Pulse Oximetry 98 98 97 [facility] 10/18/23 17:30 10/18/23 17:32 10/18/23 17:45 Temperature Pulse Rate 62 63 64 Pulse Rate [Pulse Oximeter] Respiratory Rate Blood Pressure 165/102 H Blood Pressure [Le ft Arm] Pulse Oximetry 98 96 98 [facility] 10/18/23 18:00 10/18/23 18:02 10/18/23 18:15 Temperature Pulse Rate 62 63 61 Pulse Rate [Pulse Oximeter] Respiratory Rate Blood Pressure 168/99 H Blood Pressure [Le ft Arm] Pulse Oximetry 95 96 100 Oxygen Delivery [facility] 10/18/23 18:30 10/18/23 18:32 10/18/23 18:33 Temperature Pulse Rate 60 63 61 Pulse Rate [Pulse Oximeter] Respiratory Rate Blood Pressure 188/129 H Blood Pressure [Le ft Arm] Pulse Oximetry 99 99 96 [facility] 10/18/23 18:45 10/18/23 19:00 10/18/23 19:03 Temperature Pulse Rate 61 64 65 Pulse Rate [Pulse Oximeter] Respiratory Rate Blood Pressure 172/103 H Blood Pressure [Le ft Arm] Pulse Oximetry 98 99 99 Oxygen Delivery [facility] 10/18/23 19:15 10/18/23 19:45 10/18/23 19:45 Temperature 97.8 F Pulse Rate 61 Pulse Rate [Pulse Oximeter] 55 L Respiratory Rate 20 20 Blood Pressure Blood Pressure [Le ft Arm] 187/108 H Pulse Oximetry 97 99 99 Oxygen Delivery [facility] Room Air Room Air 10/18/23 20:00 10/18/23 21:30 10/18/23 21:30 Temperature 97.8 F Pulse Rate Pulse Rate [Pulse Oximeter] 54 L 54 L 54 L Respiratory Rate 18 Blood Pressure Blood Pressure [Le ft Arm] 174/91 H Pulse Oximetry 92 Oxygen Delivery Me thod Room Air 10/18/23 22:42 10/18/23 23:45 10/18/23 23:45 Temperature 97.6 F Pulse Rate 52 L Pulse Rate [Pulse Oximeter] 63 63 Respiratory Rate 16 Blood Pressure Blood Pressure [Le ft Arm] 174/91 H Pulse Oximetry 94 Oxygen Delivery Mi thod Room Air 10/19/23 03:45 10/19/23 03:45 10/19/23 06:00 Temperature 98.3 F Pulse Rate Pulse Rate [Pulse Oximeter] 57 L 57 L 55 L Respiratory Rate 18 Blood Pressure Blood Pressure [Le ft Arm] 158/109 H Pulse Oximetry 95 Oxygen Delivery Mi thod Room Air 10/19/23 06:58 10/19/23 07:00 10/19/23 07:30 Temperature 98.2 F Pulse Rate 55 L 55 L Pulse Rate [Pulse Oximeter] 59 L Respiratory Rate 16 Blood Pressure Blood Pressure [Le ft Arm] 163/91 H Pulse Oximetry 95 Oxygen Delivery Mi thod Room Air 10/19/23 07:35 10/19/23 10:45 Temperature 98.1 F Pulse Rate Pulse Rate [Pulse Oximeter] 59 L 59 L Respiratory Rate 16 Blood Pressure Blood Pressure [Le ft Arm] 183/86 H Pulse Oximetry 99 Oxygen Delivery Mi thod Room Air Labs Labs: Laboratory Results - last 24 hr 10/18/23 10/18/23 10/18/23 16:02 17:23 Unknown WBC 11.89 H RBC 4.02 Hgb 11.6 L Hct 35.1 MCV 87 MCH 29 MCHC 33 RDW Coeff of Leanne 13.4 Plt Count 301 Neut % (Auto) 70.0 Lymph % (Auto) 18.4 L [place] % (Auto) 7.1 Eos % (Auto) 3.3 Baso % (Auto) 0.6 Neut # (Auto) 8.30 H Lymph # (Auto) 2.20 [place] # (Auto) 0.80 Eos # (Auto) 0.40 Baso # (Auto) 0.10 Abs Immat Gran (auto) 0.10 Imm/Tot Granulo (auto) 0.6 Sodium 140 Potassium 4.0 Chloride 104 Carbon Dioxide 25 Anion Gap 11 BUN 48 H Creatinine 4.4 H Estimated Creat Clear 9.54 Estimated GFR 10 Glucose 115 Calcium 10.5 Phosphorus Magnesium 2.1 Total Bilirubin AST ALT Alkaline Phosphatase NT-Pro-B Natriuret Pep 389 Total Protein Albumin Triglycerides Cholesterol LDL Cholesterol, Calc HDL Cholesterol Urine Color Yellow Urine Appearance Cloudy A Urine pH 6.5 Ur Specific [place] 1.020 Urine Protein 3+ A Urine Glucose (UA) Trace A Urine Ketones Negative Urine Blood 1+ A Urine Nitrite Negative Urine Bilirubin Negative Urine Urobilinogen 0.2 Ur Leukocyte Esterase 1+ A SARS-CoV-2 (PCR) Negative SARS-CoV-2 Influenza Type A (PCR) Negative PCR FLU A Influenza Type B (PCR) Negative PCR FLU B Lab Acknowledgement 10/19/23 10/19/23 05:58 10:41 WBC 11.97 H RBC 4.22 Hgb 12.1 Hct 36.7 MCV 87 MCH 29 MCHC 33 RDW Coeff of Leanne 13.6 Plt Count 196 Neut % (Auto) 72.8 H Lymph % (Auto) 16.9 L [place] % (Auto) 6.3 Eos % (Auto) 2.9 Baso % (Auto) 0.8 Neut # (Auto) 8.70 H Lymph # (Auto) 2.00 [place] # (Auto) 0.80 Eos # (Auto) 0.30 Baso # (Auto) 0.10 Abs Immat Gran (auto) 0.00 Imm/Tot Granulo (auto) 0.3 Sodium 141 Potassium 3.7 Chloride 109 Carbon Dioxide 23 Anion Gap 9 BUN 45 H Creatinine 3.9 H Estimated Creat Clear 10.77 Estimated GFR 12 Glucose 117 H Calcium 9.4 Phosphorus 4.4 Magnesium 1.8 Total Bilirubin 0.7 AST 33 ALT 35 Alkaline Phosphatase 63 NT-Pro-B Natriuret Pep Total Protein 7.3 Albumin 4.2 Triglycerides 421 H Cholesterol 182 LDL Cholesterol, Calc 67 HDL Cholesterol 31 L Urine Color Urine Appearance Urine pH Ur Specific [place] Urine Protein Urine Glucose (UA) Urine Ketones Urine Blood Urine Nitrite Urine Bilirubin Urine Urobilinogen Ur Leukocyte Esterase SARS-CoV-2 (PCR) Influenza Type A (PCR) Influenza Type B (PCR) Lab Acknowledgement Test Added Imaging CT scan - head: Radiologist's impression: 10/19/2023: No acute intracranial hemorrhage or other acute abnormalities. MR Brain: Radiologist's impression: 10/18/2023: MR brain 1. No acute intracranial abnormality. 2. Moderate generalized cerebral volume loss. Chronic deep white matter small vessel ischemic changes. 3. Scattered foci of susceptibility artifact within both cerebral hemispheres may represent chronic microhemorrhages or mineral deposition MR angiogram of head 1. Small 3 mm focal outpouching arising from the ophthalmic segment of the right intracranial ICA directed superiorly may represent a prominent infundibulum or tiny aneurysm. Given the size, recommend interval follow-up in 6-12 months to confirm stability. Also consider consultation with neurointerventional radiology for follow-up. Outpatient consultation with the [facility] Neurointerventional Service can be arranged by calling [phone]. 2. Remainder of the MRA head is normal.
[2023-10-19] MEDS: LOSARTAN POTASSIUM 50 MG TABLET PO (18:28)
[2023-10-19] MEDS: LATANOPROST 0.005% OPHTH 1 DROP EYE-BOTH (18:49)
[2023-10-20] VITALS (10 sets, daily range): BP systolic 155–187; BP diastolic 96–109; PULSE 58–66; RESP 16–20; TEMP 36.7–37.1; O2SAT 96–99
--- NOTE | 2023-10-20 05:44 | PC.NURSE ---
Shift note: Pt has been in bed throughout the shift wit flaccid right sided paralysis. Turn and reposition Q2h. Blood sugar level at 0000 and 0600 were 99 and 89 respectively. Alert and oriented but had muffled voice. No neurological change in condition from yesterday. Pt has been on CPAP throughout the night. High Bp recorded tonight. Pt had adequate sleep.
[2023-10-20 07:39] LABS: Hematocrit 34.1 % (33.0-51.0); Hemoglobin* 11.2 gm/dL (12.0-16.0); Mean Corpuscular HGB Conc 33 gm/dL (32-36); Mean Corpuscular Hemoglobin 29 pg (26-34); Mean Corpuscular Volume 88 fL (80-100); Platelet Count* 248 K/uL (140-440); Red Blood Count 3.87 m/uL (4.00-5.20); White Blood Count* 10.49 K/uL (4.50-11.00)
[2023-10-20 07:40] LABS: Albumin* 3.7 g/dL (3.3-5.0); Chloride* 112 mmol/L (96-114); Sodium* 142 mmol/L (135-149)
[2023-10-20 07:41] LABS: Potassium* 3.8 mmol/L (3.6-5.1)
[2023-10-20 07:43] LABS: Anion Gap 10 mEq/L (7-15); Carbon Dioxide* 20 mmol/L (20-32); Creatinine* 3.7 mg/dL (0.5-1.5); Est. Creatinine Clearance* 11.35; Estimated Glomerular Filt Rate 13 ml/min; Slide Review Reflex No
[2023-10-20 07:44] LABS: Blood Urea Nitrogen* 40 mg/dL (7-30); Calcium* 8.3 mg/dL (8.4-10.6); Glucose* 92 mg/dL (60-115); Phosphorus* 4.1 mg/dL (2.5-4.5)
[2023-10-20] MEDS: 0.9 % SODIUM CHLORIDE 1000 ml 1,000 ML 125 ML IV (07:49)
[2023-10-20] MEDS: ASPIRIN EC 325 MG TABLET PO (08:24)
[2023-10-20] MEDS: CLOPIDOGREL 75 MG TABLET PO (08:24)
[2023-10-20] MEDS: ATORVASTATIN CALCIUM 40 MG TABLET PO (08:24)
[2023-10-20] MEDS: timoloL maleate 0.5 % 1 DROP EYE-BOTH ×2 (09:25→20:47)
--- NOTE | 2023-10-20 12:21 | PM.IMPN1 ---
Progress Note: A&P Assessment and plan (1) Hemiparesis affecting right side as late effect of cerebrovascular accident (CVA): Problem details: -suspect acute ischemic stroke versus recrudescence of her previous stroke --> SYMPTOMS PROGRESSED AFTER ADMISSION TO DENSE HEMIPARESIS -ED initially contacted neuro stroke team who stated that patient is outside the window for thrombolytics. -Brain MRI and an MRA because of her CKD stage 5, both did not show any acute pathology. WILL REPEAT 10/20 -Treat BP only if > 220/110 per Neurologist recs - EPIC NOTE REVIEWED. -sips/chips and necessary oral meds. Needs speech evaluation -dual anti-platelet therapy by adding clopidogrel 300 mg x 1 dose and 75 mg daily thereafter for at least a month -recheck lipid panel and consider increasing dose of atorvastatin from usual dose of 40 mg daily to 80 mg once daily (DONE 10/19) -echo ordered 10/19 -ordered PT/OT/ST -patient and are agreeable to consider transitional care services verses inpatient rehabilitation Status: Acute (2) History of ischemic stroke: Problem details: -ischemic stroke in 2014, followed by 3 months of PT/rehab. -patient states that she almost does not have any residual deficits from her previous stroke. -on aspirin 325 mg and atorvastatin 40 at home. Status: Acute (3) CKD stage 5 secondary to hypertension: Problem details: -her baseline creatinine is 4.1; she has a glomerular filtration rate of 11 by MDRD giving her stage 5 chronic kidney disease - worsening kidney function this year; creatinine now up to 4s - kidney biopsy consistent with mostly hypertension damage as opposed to diabetes despite nephrotic range urine protein; likely to progress to end stage kidney disease - she is working with [facility] for transplant evaluation; possibly doing a shared partner transplant with her sister as a live donor Status: Chronic (4) Hypertensive emergency: Problem details: - On full dose ARB at home - previously on thiazide but stopped as she is sensitive to dehydration -S/P amlodipine 2.5 mg once at ED -Treat BP only if > 220/110 per Neuro f/u bedside neuro eval -will hold losartan for now, mostly to be resumed tomorrow after permissive hypertension is finished and her BMP labs at baseline. -Patient was seen by her viscera washer a couple of days prior to admission on 10/18/2023 and is continuing full-dose of losartan as she has no side effects, although losartan is currently on hold. Status: Acute (5) Diabetes: Problem details: - Hemoglobin A1c at 6.7 in Sep 2023 . on low dose, renal dosing for both Januvia and glimepiride. - will start Low dose ISS during this admission. Status: Acute (6) JAJA on CPAP: Problem details: -asked patient to bring her home CPAP. Status: Chronic (7) Cerebral aneurysm: Problem details: -Cerebral MRA at this admission showed at small 3 mm focal outpouching arising from the ophthalmic segment of the right intracranial ICA directed superiorly may represent a prominent infundibulum or tiny aneurysm. Given the size, radiologist recommends an interval follow-up in 6-12 months to confirm stability. Also to consider consultation with neurointerventional radiology for follow-up. -radiologist recommendation: Outpatient consultation with the [facility] Neurointerventional Service can be arranged by calling [phone]. -is already following neurology services as an outpatient. Status: Suspected (8) Hyperlipidemia: Problem details: -if repeat LDL is greater than 70 then consider increasing atorvastatin from usual dose of 40 mg daily to 80 mg daily - increased 10/19 Status: Chronic Subjective Date Seen: 10/20/23 Interval history: Daily Progress Note - Hospital Medicine Day #: 3 CC: Acute ischemic stroke 24 HOUR UPDATE: dense hemiparesis slightly worse than yesterday; speech and swallow improved. tearful but resolved. Notable Labs, Micro, Rads, Interventions: CBC is unremarkable this morning. Creatinine is 3.7, creatinine clearance 11.3, GFR 13. Electrolytes are normal. Proteinuria noted in her urine. Negative urine culture. Echo has not yet been complete Objective: awake, alert, communicates her needs Vitals: see above Lungs: Clear. Cardiac: S1S2. Neuro: examined with PT bedside. dense hemiparesis in the right upper and lower extremity. some hip rotation is noted; some contraction along the trap and rhomboid. trunk control mostly intact. facial asymmetry noted. Disposition/Potential discharge - will need acute rehab Exam Const: Vital Signs, click to edit/add: Vital Signs - 24 hr 10/19/23 15:00 10/19/23 17:27 10/19/23 20:16 Temperature 97.8 F Pulse Rate 56 L 67 Pulse Rate [Pulse Oximeter] 64 Respiratory Rate 16 Blood Pressure [Le ft Arm] 183/104 H Pulse Oximetry 96 Oxygen Delivery Me thod Room Air 10/19/23 20:30 10/19/23 23:00 10/19/23 23:00 Temperature 98.4 F 98.3 F Pulse Rate Pulse Rate [Pulse Oximeter] 65 60 60 Respiratory Rate 18 18 18 Blood Pressure [Le ft Arm] 166/118 H 167/102 H Pulse Oximetry 96 95 Oxygen Delivery Mo thod Room Air Room Air 10/19/23 23:50 10/20/23 03:00 10/20/23 07:27 Temperature 98.5 F Pulse Rate 61 64 Pulse Rate [Pulse Oximeter] 66 Respiratory Rate 18 Blood Pressure [Le ft Arm] 170/96 H Pulse Oximetry 96 Oxygen Delivery Mo thod Room Air 10/20/23 07:45 10/20/23 07:50 10/20/23 11:08 Temperature 98.1 F 98.2 F Pulse Rate Pulse Rate [Pulse Oximeter] 65 65 63 Respiratory Rate 18 18 16 Blood Pressure [Le ft Arm] 155/97 H 165/101 H Pulse Oximetry 97 98 Oxygen Delivery Mo thod Room Air Room Air Labs Labs: Laboratory Results - last 24 hr 10/20/23 05:54 WBC 10.49 RBC 3.87 L Hgb 11.2 L Hct 34.1 MCV 88 MCH 29 MCHC 33 Plt Count 248 Sodium 142 Potassium 3.8 Chloride 112 Carbon Dioxide 20 Anion Gap 10 BUN 40 H Creatinine 3.7 H Estimated Creat Clear 11.35 Estimated GFR 13 Glucose 92 Calcium 8.3 L Phosphorus 4.1 Albumin 3.7
--- NOTE | 2023-10-20 14:48 | PC.NURSE ---
(Shift [id number]) Pt is alert and oriented. Pt is hypertensive, MD aware, and continues to hold blood pressure medications. Otherwise, other vitals within normal limits. Speech is slurred and grumbled with slight right facial droop. She is flaccid on the right-side extremities. She can take her medications with sips of liquids and tolerate it well. MRI needs to be completed early next week per MD. Pt transfers with ceiling lift, was up to chair today and tolerated well. at bedside. ?
[2023-10-20] MEDS: 5 % DEXTROSE/0.9% SOD CHLORIDE 1,000 ML 75 ML IV (17:18)
[2023-10-20] MEDS: LATANOPROST 0.005% OPHTH 1 DROP EYE-BOTH (17:18)
--- NOTE | 2023-10-20 18:54 | PC.NURSE ---
(Shift [id number]) - Pt is alert and oriented. Pt had no complaints of pain. Pts extremities on the right side are flaccid. Pt napped this afternoon after being up in the chair during the morning/early afternoon. ?Pt is allowed sips with medications. Pt is up with a ceiling lift. Pt?s evening blood sugar was 67; hospitalist notified different IV fluids started; see EMAR
[2023-10-21] VITALS (8 sets, daily range): BP systolic 105–198; BP diastolic 62–109; PULSE 56–84; RESP 16–18; TEMP 36.3–37.2; O2SAT 91–97
--- NOTE | 2023-10-21 | CRLHL7_ITS ---
For Patients: As a result of the Century Cures Act, medical imaging exams and procedure reports are released immediately into your electronic medical record. You may view this report before your referring provider. If you have questions, please contact your health care provider. INDICATION: Right-sided weakness. Technique Multiplanar multisequence MR imaging of the brain without intravenous contrast. COMPARISON: CT Brain 10/19/2023, MRI brain 10/18/2023. FINDINGS: Small to moderate diffusion restriction and FLAIR hyperintensity within the superior left hemipons, compatible with an acute to early subacute infarction. New punctate acute to subacute infarction within the right temporal occipital region (series 5 image 41). Mild diffuse cerebral volume loss. No midline shift. Patchy FLAIR hyperintensities in the supratentorial white matter, typical for moderate chronic microvascular ischemic changes. Chronic lacunar infarction right cerebellar hemisphere. Multiple punctate foci of susceptibility in the supratentorial parenchyma, typical for chronic microhemorrhages. The major arterial flow voids of the skull base are preserved. Thinning of the ocular lenses. Mild paranasal sinus mucosal thickening. Mastoid air cells are clear. Advanced right temporomandibular joint degenerative changes. IMPRESSION: 1. Small to moderate acute to early subacute infarction within the left hemipons. 2. Punctate acute to subacute infarction within the right temporooccipital region. 3. Moderate chronic microvascular ischemic changes and mild diffuse cerebral volume loss. 4. Multiple microhemorrhages in the brain demonstrate distribution typical for sequelae of hypertensive and cerebral amyloid angiography. Dictated by Ken Anderson MD @ 10/21/2023 9:22:16 AM (Electronically Signed)
[2023-10-21 06:55] LABS: Chloride* 114 mmol/L (96-114); Potassium* 3.7 mmol/L (3.6-5.1); Sodium* 141 mmol/L (135-149)
[2023-10-21 06:58] LABS: Anion Gap 10 mEq/L (7-15); Blood Urea Nitrogen* 37 mg/dL (7-30); Carbon Dioxide* 17 mmol/L (20-32); Creatinine* 3.4 mg/dL (0.5-1.5); Est. Creatinine Clearance* 12.35; Estimated Glomerular Filt Rate 14 ml/min; Glucose* 120 mg/dL (60-115)
[2023-10-21 06:59] LABS: Calcium* 7.8 mg/dL (8.4-10.6)
--- NOTE | 2023-10-21 09:02 | NUTR.NU ---
RDN with nutrition screen related to positive skin risk and chewing/swallowing issues. Patient admitted with possible CVA, having right sided weakness and swallowing concerns. Past medical history include Chronic Kidney Disease stage 5, stable and on list for transplant. Speech Evaluation ordered for today. Current height 5ft 2in; weight 173lb 6oz; BMI 31.7 kg/m2. Current diet is NPO. No intakes since admission. No nutrition interventions at this time given patient's current diet order, no intakes since admit, and speech evaluation being done today. RDN will continue to monitor and follow-up prn.
[2023-10-21] MEDS: 5 % DEXTROSE/0.9% SOD CHLORIDE 1,000 ML 75 ML IV ×2 (09:59→23:52)
[2023-10-21] MEDS: ATORVASTATIN CALCIUM 40 MG TABLET 80 MG PO ×2 (10:05→10:06)
[2023-10-21] MEDS: CLOPIDOGREL 75 MG TABLET PO (10:05)
[2023-10-21] MEDS: timoloL maleate 0.5 % 1 DROP EYE-BOTH ×2 (10:06→20:28)
[2023-10-21] MEDS: ASPIRIN EC 325 MG TABLET PO (10:06)
--- NOTE | 2023-10-21 10:33 | PM.IMPN1 ---
Progress Note: A&P Assessment and plan (1) Hemiparesis affecting right side as late effect of cerebrovascular accident (CVA): Problem details: -suspect acute ischemic stroke versus recrudescence of her previous stroke --> SYMPTOMS PROGRESSED AFTER ADMISSION TO DENSE HEMIPARESIS -ED initially contacted neuro stroke team who stated that patient is outside the window for thrombolytics. -On admission brain MRI and an MRA because of her CKD stage 5, both did not show any acute pathology. WILL REPEAT 10/20 - positive acute CVA findings. -Treat BP only if > 220/110 per Neurologist recs - EPIC NOTE REVIEWED. -sips/chips and necessary oral meds. Needs speech evaluation -dual anti-platelet therapy by adding clopidogrel 300 mg x 1 dose and 75 mg daily thereafter for at least a month -recheck lipid panel and consider increasing dose of atorvastatin from usual dose of 40 mg daily to 80 mg once daily (DONE 10/19) -echo PENDING -NEURO F/U PENDING -ordered PT/OT/ST -patient and are agreeable to consider transitional care services verses inpatient rehabilitation Status: Acute (2) History of ischemic stroke: Problem details: -ischemic stroke in 2014, followed by 3 months of PT/rehab. -patient states that she almost does not have any residual deficits from her previous stroke. -on aspirin 325 mg and atorvastatin 40 at home. Status: Acute (3) CKD stage 5 secondary to hypertension: Problem details: -her baseline creatinine is 4.1; she has a glomerular filtration rate of 11 by MDRD giving her stage 5 chronic kidney disease - worsening kidney function this year; creatinine now up to 4s - kidney biopsy consistent with mostly hypertension damage as opposed to diabetes despite nephrotic range urine protein; likely to progress to end stage kidney disease - she is working with [facility] for transplant evaluation; possibly doing a shared partner transplant with her sister as a live donor Status: Chronic (4) Hypertensive emergency: Problem details: - On full dose ARB at home - previously on thiazide but stopped as she is sensitive to dehydration -S/P amlodipine 2.5 mg once at ED -Treat BP only if > 220/110 per Neuro f/u bedside neuro eval -will hold losartan for now, mostly to be resumed tomorrow after permissive hypertension is finished and her BMP labs at baseline. -Patient was seen by her inspector insulation a couple of days prior to admission on 10/18/2023 and is continuing full-dose of losartan as she has no side effects, although losartan is currently on hold. Status: Acute (5) Diabetes: Problem details: - Hemoglobin A1c at 6.7 in Sep 2023 . on low dose, renal dosing for both Januvia and glimepiride. - will start Low dose ISS during this admission. Status: Acute (6) JAJA on CPAP: Problem details: -asked patient to bring her home CPAP. Status: Chronic (7) Cerebral aneurysm: Problem details: -Cerebral MRA at this admission showed at small 3 mm focal outpouching arising from the ophthalmic segment of the right intracranial ICA directed superiorly may represent a prominent infundibulum or tiny aneurysm. Given the size, radiologist recommends an interval follow-up in 6-12 months to confirm stability. Also to consider consultation with neurointerventional radiology for follow-up. -radiologist recommendation: Outpatient consultation with the [facility] Neurointerventional Service can be arranged by calling [phone]. -is already following neurology services as an outpatient. Status: Suspected (8) Hyperlipidemia: Problem details: -if repeat LDL is greater than 70 then consider increasing atorvastatin from usual dose of 40 mg daily to 80 mg daily - increased 10/19 Status: Chronic Subjective Date Seen: 10/21/23 Interval history: Daily Progress Note - Hospital Medicine Day #: 4 CC: Acute ischemic stroke (left hemipons; right temporoccipital) 24 HOUR UPDATE: dense hemiparesis slightly improved than yesterday; speech and swallow improved. tearful but resolved. Notable Labs, Micro, Rads, Interventions: F/U MRI this morning 1. Small to moderate acute to early subacute infarction within the left hemipons. 2. Punctate acute to subacute infarction within the right temporooccipital region. 3. Moderate chronic microvascular ischemic changes and mild diffuse cerebral volume loss. 4. Multiple microhemorrhages in the brain demonstrate distribution typical for sequelae of hypertensive and cerebral amyloid angiography. CBC is unremarkable this morning. Creatinine is 3.4, creatinine clearance 11.3, GFR 13. Electrolytes are normal. Proteinuria noted in her urine. Negative urine culture. Echo has not yet been complete Neuro telehealth consult needed in f/u to go over findings on MRI today Objective: awake, alert, communicates her needs Vitals: see above Lungs: Clear. Cardiac: S1S2. Neuro: Dense hemiparesis in the right upper and lower extremity. some hip rotation is noted; some contraction along the trap and rhomboid. flaccid RUE. trunk control mostly intact. facial asymmetry noted. Disposition/Potential discharge - will need acute rehab Exam Const: Vital Signs, click to edit/add: Vital Signs - 24 hr 10/20/23 11:08 10/20/23 15:19 10/20/23 15:46 Temperature 98.2 F 98.2 F Pulse Rate 61 Pulse Rate [Pulse Oximeter] 63 58 L Respiratory Rate 16 18 Blood Pressure [Le ft Arm] 165/101 H 174/105 H Pulse Oximetry 98 96 Oxygen Delivery Me thod Room Air Room Air 10/20/23 15:46 10/20/23 19:00 10/20/23 22:15 Temperature 98.7 F 98.2 F Pulse Rate Pulse Rate [Pulse Oximeter] 58 L 65 60 Respiratory Rate 20 20 Blood Pressure [Le ft Arm] 175/109 H 187/107 H Pulse Oximetry 99 96 Oxygen Delivery In thod Room Air Room Air 10/20/23 23:00 10/21/23 02:47 10/21/23 07:49 Temperature 98.6 F 98.6 F Pulse Rate 62 Pulse Rate [Pulse Oximeter] 64 58 L Respiratory Rate 18 16 Blood Pressure [Le ft Arm] 198/109 H 176/89 H Pulse Oximetry 91 95 Oxygen Delivery Me thod Room Air Room Air 10/21/23 07:53 Temperature Pulse Rate 56 L Pulse Rate [Pulse Oximeter] Respiratory Rate Blood Pressure [Le ft Arm] Pulse Oximetry Oxygen Delivery Me thod Labs Labs: Laboratory Results - last 24 hr 10/21/23 05:54 Sodium 141 Potassium 3.7 Chloride 114 Carbon Dioxide 17 L Anion Gap 10 BUN 37 H Creatinine 3.4 H Estimated Creat Clear 12.35 Estimated GFR 14 Glucose 120 H Calcium 7.8 L
--- NOTE | 2023-10-21 14:05 | RESP.RT ---
Home CPAP at bedside, Patient needs some assisstance for placement of nasal interface. Water chamber filled 1/2 way to patients request.
--- NOTE | 2023-10-21 14:29 | PC.NURSE ---
Pt alert and oriented. Mildly aphasic; slurred speech. Right side flaccid, normal sensation. Denies pain. Telemetry Sinus Bradycardia. MRI, Echocardiogram, Speech/Swallowing evaluation and Neurologist Consultation completed this shift.
--- NOTE | 2023-10-21 14:43 | PC.SOCIAL ---
Addendum entered by Shannan Melendez [facility] 10/21/23 15:45: Discharge planning: welfare worker sent updated notes to Hakeem at [facility] this afternoon; note included, PT/OT notes from today and the speech evaluation from today. Social work to follow-up as needed. Addendum entered by Shannan Melendez [facility] 10/21/23 15:14: Discharge planning: welfare worker heard back from Hakeem at [facility] whom confirmed they received the referral on the pt. They do not have an answer yet. Social work to follow-up as needed. Addendum entered by Shannan Melendez [facility] 10/21/23 14:53: Discharge planning: welfare worker called back this afternoon and left a message with Hakeem at [facility] asking for an update on whether they can accept the pt or not. Social work to follow-up as needed. Original Note: Discharge planning: welfare worker met with pt and her to discuss discharge planning. Pt is being recommended for acute rehab at discharge. Pt and her are interested in [facility]. welfare worker talked to Hakeem at [facility] who shared that they have openings right now and to send a referral and they would assess. welfare worker faxed the referral to [facility] at #[phone]. Social work to follow-up as needed.
--- NOTE | 2023-10-21 16:17 | CRLHL7_ITS ---
For Patients: As a result of the Century Cures Act, medical imaging exams and procedure reports are released immediately into your electronic medical record. You may view this report before your referring provider. If you have questions, please contact your health care provider. CLINICAL HISTORY: CVA TECHNIQUE: The carotid circulations and the vertebral arteries in the neck were examined with walker-scale ultrasound, color-flow and Doppler spectral analysis. Degrees of stenosis were determined using SRU 2002 Consensus Panel Criteria. FINDINGS: Sonographic images demonstrate mild bilateral atherosclerotic plaque formation without suspicious soft tissue mass. There was antegrade blood flow demonstrated within the vertebral arteries and the subclavian arteries demonstrated a normal triphasic waveform. The spectral Doppler tracings of the common carotid, internal and external carotid arteries demonstrate no abnormal turbulence or spectral broadening. There was no significant elevation of peak systolic blood flow which would indicate a hemodynamically-significant stenosis by SRU criteria. The ICA/CCA peak systolic velocity ratio measures 1.3 on the right and 1.6 on the left. IMPRESSION: Less than 50 percent stenosis of the internal carotid arteries bilaterally. Dictated by Hai Zavaleta MD @ 10/22/2023 8:45:53 AM (Electronically Signed)
[2023-10-21] MEDS: LATANOPROST 0.005% OPHTH 1 DROP EYE-BOTH (17:53)
[2023-10-22] VITALS (11 sets, daily range): BP systolic 164–190; BP diastolic 97–111; PULSE 59–81; RESP 16–18; TEMP 36.1–37.5; O2SAT 95–97
[2023-10-22 06:21] LABS: HCO3 VBG 19 mmol/L (21-28); PCO2 VBG 33 mmHG (40-50); PO2 VBG 76.7 mmHG (25-47); pH VBG 7.362 (7.32-7.43)
[2023-10-22 06:29] LABS: Hematocrit 32.1 % (33.0-51.0); Hemoglobin* 10.6 gm/dL (12.0-16.0); Mean Corpuscular HGB Conc 33 gm/dL (32-36); Mean Corpuscular Hemoglobin 29 pg (26-34); Mean Corpuscular Volume 88 fL (80-100); Platelet Count* 247 K/uL (140-440); Red Blood Count 3.67 m/uL (4.00-5.20)
--- NOTE | 2023-10-22 06:30 | PC.NURSE ---
End of shift note [id number]. Pt noted to be alert & oriented to person, place and time though has aphasia due to stroke. PERRLA. She requires use of ceiling lift for transferring and was noted to be incontinent of bladder several times throughout the shift though did not use call light. Blood pressures of 168/93 and 169/97. Blood glucose of 138 and 114 this shift. IV to L AC patent. Pt denied pain when asked throughout the shift. She requests up to assist of 2 staff with repositioning in bed. Telemetry in place with sinus bradycardia noted. Pt refused SCDs to bilateral lower extremities when approached/educated. Pt requires use of ceiling lift when transferring in and out of bed. Call light within reach. Mild aphasia and slurred speech noted which are not new findings per documentation. Restricted extremity to RUE with band in place. Pt slept well overnight and wore home CPAP.
[2023-10-22 06:42] LABS: Slide Review Reflex No
[2023-10-22 06:44] LABS: Albumin* 3.5 g/dL (3.3-5.0)
[2023-10-22 06:45] LABS: Chloride* 116 mmol/L (96-114); Potassium* 3.7 mmol/L (3.6-5.1); Sodium* 142 mmol/L (135-149)
[2023-10-22 06:47] LABS: Anion Gap 7 mEq/L (7-15); Bilirubin Total* 0.6 mg/dL (0.1-1.5); Carbon Dioxide* 19 mmol/L (20-32); Creatinine* 3.6 mg/dL (0.5-1.5); Est. Creatinine Clearance* 11.66; Estimated Glomerular Filt Rate 13 ml/min
[2023-10-22 06:48] LABS: Alanine Aminotransferase* 27 U/L (4-35); Alkaline Phosphatase* 65 U/L (40-150); Aspartate Amino Transferase* 28 U/L (12-35); Blood Urea Nitrogen* 34 mg/dL (7-30); Calcium* 7.9 mg/dL (8.4-10.6); Glucose* 115 mg/dL (60-115); Magnesium* 1.9 mg/dL (1.5-2.6); Phosphorus* 4.1 mg/dL (2.5-4.5); Total Protein* 6.2 g/dL (6.0-8.3)
--- NOTE | 2023-10-22 07:46 | P.IMPN_ITS ---
Progress Note: A&P Assessment and plan (1) Hemiparesis affecting right side as late effect of cerebrovascular accident (CVA): Problem details: Prestroke MODIFIED HI SCALE: 0 Discharge MODIFIED HI SCALE: 4 1) Diagnosis: acute ischemic stroke, in left josh, also right temporal/occipita l lobe 2) Cause: small vessel vs ESUS 3) Risk factor profile: diabetes, hypertension, hyperlipidemia, prior stroke 4) Comorbidities: chronic kidney disease, on the list for kidney transplant -initially admitted with RLE weakness --> SYMPTOMS PROGRESSED AFTER ADMISSION TO DENSE HEMIPARESIS -ED initially contacted neuro stroke team who stated that patient is outside the window for thrombolytics. -On admission brain MRI and an MRA did not show any acute pathology. REPEATED 10/20 - positive acute CVA findings. -Permissive HTN initially, now goal to achieve 140/90 slowly -Speech eval done; minced and moist, thin liquids and no straws - recommendation reviewed -Aspirin 81 mg + plavix 75 mg daily for acute treatment and secondary stroke prophylaxis x 3 weeks, then aspirin alone 325 mg daily. Would also plan for repeat brain MRI with [facility] in 6 months to compare to today's imaging - if blood pressure has been controlled and she has more microhemorrhages, would recommend staying on aspirin. If microhemorrhages are stable in number and size, could consider escalating her antiplatelet agent to Plavix 75 mg daily for stroke prevention. -recheck lipid panel and consider increasing dose of atorvastatin from usual dose of 40 mg daily to 80 mg once daily (DONE 10/19) -patient and are agreeable to consider transitional care services verses inpatient rehabilitation Status: Acute (2) History of ischemic stroke: Problem details: -ischemic stroke in 2014, followed by 3 months of PT/rehab. -patient states that she almost does not have any residual deficits from her previous stroke. -on aspirin 325 mg and atorvastatin 40 at home. Status: Acute (3) CKD stage 5 secondary to hypertension: Problem details: -her baseline creatinine is 4.1; she has a glomerular filtration rate of 11 by MDRD giving her stage 5 chronic kidney disease - worsening kidney function this year; creatinine now up to 4s - kidney biopsy consistent with mostly hypertension damage as opposed to diabetes despite nephrotic range urine protein; likely to progress to end stage kidney disease - she is working with [facility] for transplant evaluation; possibly doing a shared partner transplant with her sister as a live donor Status: Chronic (4) Hypertensive emergency: Problem details: - On full dose ARB at home - previously on thiazide but stopped as she is sensitive to dehydration -S/P amlodipine 2.5 mg once at ED -goal is now 140/90; restarting home losartan dosing Status: Acute (5) Diabetes: Problem details: - Hemoglobin A1c at 6.7 in Sep 2023 . on low dose, renal dosing for both Januvia and glimepiride. - will start Low dose ISS during this admission. Status: Acute (6) JAJA on CPAP: Problem details: -asked patient to bring her home CPAP. Status: Chronic (7) Cerebral aneurysm: Problem details: -Cerebral MRA at this admission showed at small 3 mm focal outpouching arising from the ophthalmic segment of the right intracranial ICA directed superiorly may represent a prominent infundibulum or tiny aneurysm. Given the size, radiologist recommends an interval follow-up in 6-12 months to confirm stability. Also to consider consultation with neurointerventional radiology for follow-up. -radiologist recommendation: Outpatient consultation with the [facility] Neurointerventional Service can be arranged by calling [phone]. -is already following neurology services as an outpatient. Status: Suspected (8) Hyperlipidemia: Problem details: -if repeat LDL is greater than 70 then consider increasing atorvastatin from usual dose of 40 mg daily to 80 mg daily - increased 10/19 Status: Chronic Subjective Date Seen: 10/22/23 Interval history: Daily Progress Note - Hospital Medicine Day #: 5 CC: Acute ischemic stroke (left hemipons; right temporoccipital) 24 HOUR UPDATE: dense hemiparesis same as yesterday; speech and swallow improved. tearful but resolved. Notable Labs, Micro, Rads, Interventions: Carotid U/S 10/20 Preliminary Report: Minimal atherosclerosis of the bilateral carotid bifurcations. No significant narrowing seen. F/U MRI 10/22/23 1. Small to moderate acute to early subacute infarction within the left hemipons. 2. Punctate acute to subacute infarction within the right temporooccipital region. 3. Moderate chronic microvascular ischemic changes and mild diffuse cerebral volume loss. 4. Multiple microhemorrhages in the brain demonstrate distribution typical for sequelae of hypertensive and cerebral amyloid angiography. CBC is unremarkable this morning. Creatinine is 3.6, creatinine clearance 11.3, GFR 13. Electrolytes are normal. Proteinuria noted in her urine. Negative urine culture. Objective: awake, alert, communicates her needs Vitals: see above Lungs: Clear. Cardiac: S1S2. Neuro: Dense hemiparesis in the right upper and lower extremity. some hip rotation is noted; some contraction along the trap and rhomboid. flaccid RUE. trunk control mostly intact. facial asymmetry noted. Disposition/Potential discharge - will need acute rehab Exam Const: Vital Signs, click to edit/add: Vital Signs - 24 hr 10/21/23 07:49 10/21/23 07:53 10/21/23 11:39 Temperature 98.6 F 98.8 F Pulse Rate 56 L Pulse Rate [Pulse Oximeter] 58 L 56 L Respiratory Rate 16 18 Blood Pressure [Le ft Arm] 176/89 H 175/101 H Pulse Oximetry 95 97 Oxygen Delivery Me thod Room Air Room Air 10/21/23 15:00 10/21/23 15:00 10/21/23 15:00 Temperature 99.0 F Pulse Rate 62 Pulse Rate [Pulse Oximeter] 73 73 Respiratory Rate 16 16 Blood Pressure [Le ft Arm] 169/102 H Pulse Oximetry 96 Oxygen Delivery Me thod Room Air 10/21/23 19:00 10/21/23 23:00 10/21/23 23:00 Temperature 97.3 F L Pulse Rate 59 L Pulse Rate [Pulse Oximeter] 84 61 Respiratory Rate 18 16 Blood Pressure [Le ft Arm] 105/62 Pulse Oximetry 95 Oxygen Delivery Me thod Room Air 10/21/23 23:50 10/22/23 02:58 Temperature 98.4 F 98.1 F Pulse Rate Pulse Rate [Pulse Oximeter] 61 63 Respiratory Rate 16 18 Blood Pressure [Le ft Arm] 168/93 H 169/97 H Pulse Oximetry 96 97 Oxygen Delivery Me thod CPAP CPAP Labs Labs: Laboratory Results - last 24 hr 10/22/23 06:04 WBC 10.00 RBC 3.67 L Hgb 10.6 L Hct 32.1 L MCV 88 MCH 29 MCHC 33 Plt Count 247 VBG pH 7.362 VBG pCO2 33 L VBG pO2 76.7 H VBG HCO3 19 L Sodium 142 Potassium 3.7 Chloride 116 H Carbon Dioxide 19 L Anion Gap 7 BUN 34 H Creatinine 3.6 H Estimated Creat Clear 11.66 Estimated GFR 13 Glucose 115 Calcium 7.9 L Phosphorus 4.1 Magnesium 1.9 Total Bilirubin 0.6 AST 28 ALT 27 Alkaline Phosphatase 65 Total Protein 6.2 Albumin 3.5
[2023-10-22] MEDS: ATORVASTATIN CALCIUM 40 MG TABLET 80 MG PO (08:34)
[2023-10-22] MEDS: LOSARTAN POTASSIUM 50 MG TABLET PO ×2 (08:35→11:17)
[2023-10-22] MEDS: ASPIRIN 81 MG TABLET EC PO (08:35)
[2023-10-22] MEDS: CLOPIDOGREL 75 MG TABLET PO (08:35)
[2023-10-22] MEDS: timoloL maleate 0.5 % 1 DROP EYE-BOTH ×2 (11:16→20:49)
--- NOTE | 2023-10-22 12:07 | PC.SOCIAL ---
Addendum entered by JERRELL Randle 10/22/23 14:26: Discharge planning: Received a call back from Hakeem at [facility] this afternoon after leaving a message with him around 1pm. Hakeem shared that the doctor now wanted to see PT/OT notes from today for the pt. blow off worker will send those over via fax. Social work to follow-up as needed. Original Note: Discharge planning: Received a call from Hakeem at [facility] early this morning and he was asking for a copy of the pt's echocardiogram that was done yesterday and the Neurology consult that was done yesterday. blow off worker faxed over the echocardiogram to #[phone]. blow off worker also let Hakeem know that the Neurology report is in [facility]. Hakeem was able to pull up the Neurology report in [facility]. He shared that the team of doctors are still reviewing the pt's referral. Social work to follow-up as needed.
[2023-10-22] MEDS: INSULIN ASPART 100 UNIT/ML SUBCUT (13:02)
[2023-10-22 14:47] LABS: Bacteria Urine Moderate; Squamous Epithelial Cell Urine Few (None-Few); WBC Urine >100 (0-5)
--- NOTE | 2023-10-22 15:39 | PC.NURSE ---
Nursing Care Hours: [id number] Pt this shift calm and cooperative, alert and oriented. No c/o pain. R side arm and LE flaccid. Arm elevated on pillow and foot supported by pillow to prevent foot drop. Discussed PROM with pt and spouse. HTN without symptoms. Pivot transfer 1-2 assist with gait belt. Up to chair for meals. Incontinent void changed x2.
[2023-10-22] MEDS: LATANOPROST 0.005% OPHTH 1 DROP EYE-BOTH (18:06)
--- NOTE | 2023-10-22 22:29 | PC.NURSE ---
End of Shift: Patient pleasant and cooperative, A&O. VSS, afebrile. Right side flaccid this shift. Slurred speech. Up to chair for meals. Patient denies pain this shift. Pivot transfer 1-2 assist with gait belt.
[2023-10-23] VITALS (9 sets, daily range): BP systolic 165–186; BP diastolic 95–109; PULSE 63–76; RESP 14–22; TEMP 37.1–37.5; O2SAT 94–96
[2023-10-23] MEDS: DOCUSATE SODIUM 100 MG CAPSULE PO (05:07)
--- NOTE | 2023-10-23 06:41 | PC.NURSE ---
End of shift note [id number]: Pt alert & oriented to person, place and time though has aphasia and delayed/slurred speech at times due to effects of stroke. PERRLA. Pt remains hypertensive this shift with B/Ps of 190/108 and 171/96 though has no hypertensive sx noted and has been denying pain throughout the shift. IVs in place to L AC and LUE and pt is currently SL. Pt incontinent of bladder several times throughout the shift. Pt has been afebrile and on RA throughout the shift. Pt on tele with NSR with prolonged QT noted which is not a new finding. PRN Colace given to promote bowel movement.
[2023-10-23 06:58] LABS: Hematocrit 31.3 % (33.0-51.0); Hemoglobin* 10.3 gm/dL (12.0-16.0); Mean Corpuscular HGB Conc 33 gm/dL (32-36); Mean Corpuscular Hemoglobin 29 pg (26-34); Mean Corpuscular Volume 88 fL (80-100); Platelet Count* 253 K/uL (140-440); Red Blood Count 3.55 m/uL (4.00-5.20); White Blood Count* 10.27 K/uL (4.50-11.00)
[2023-10-23 07:07] LABS: Slide Review Reflex No
[2023-10-23 07:19] LABS: Chloride* 115 mmol/L (96-114); Potassium* 3.6 mmol/L (3.6-5.1); Sodium* 143 mmol/L (135-149)
[2023-10-23 07:21] LABS: Creatinine* 3.6 mg/dL (0.5-1.5); Est. Creatinine Clearance* 11.66; Estimated Glomerular Filt Rate 13 ml/min
[2023-10-23 07:22] LABS: Anion Gap 11 mEq/L (7-15); Blood Urea Nitrogen* 41 mg/dL (7-30); Calcium* 8.9 mg/dL (8.4-10.6); Carbon Dioxide* 17 mmol/L (20-32); Glucose* 132 mg/dL (60-115)
[2023-10-23] MEDS: ASPIRIN 81 MG TABLET EC PO (08:54)
[2023-10-23] MEDS: ATORVASTATIN CALCIUM 40 MG TABLET 80 MG PO (08:55)
[2023-10-23] MEDS: METOPROLOL TARTRATE 25 MG TABLET PO ×2 (08:55→21:27)
[2023-10-23] MEDS: LOSARTAN POTASSIUM 50 MG TABLET 100 MG PO (08:55)
[2023-10-23] MEDS: CLOPIDOGREL 75 MG TABLET PO (08:55)
[2023-10-23] MEDS: bisacodyL 10 MG SUPP.RECT PR (08:56)
[2023-10-23] MEDS: timoloL maleate 0.5 % 1 DROP EYE-BOTH ×2 (09:04→22:56)
--- NOTE | 2023-10-23 09:27 | PM.IMPN1 ---
Progress Note: A&P Assessment and plan (1) Hemiparesis affecting right side as late effect of cerebrovascular accident (CVA): Problem details: Prestroke MODIFIED HI SCALE: 0 Discharge MODIFIED HI SCALE: 4 1) Diagnosis: acute ischemic stroke, in left josh, also right temporal/occipital lobe 2) Cause: small vessel vs ESUS 3) Risk factor profile: diabetes, hypertension, hyperlipidemia, prior stroke 4) Comorbidities: chronic kidney disease, on the list for kidney transplant -initially admitted with RLE weakness --> SYMPTOMS PROGRESSED AFTER ADMISSION TO DENSE HEMIPARESIS -ED initially contacted neuro stroke team who stated that patient is outside the window for thrombolytics. -On admission brain MRI and an MRA did not show any acute pathology. REPEATED 10/20 - positive acute CVA findings. -Permissive HTN initially, now goal to achieve 140/90 slowly -Speech eval done; minced and moist, thin liquids and no straws - recommendation reviewed -Aspirin 81 mg + plavix 75 mg daily for acute treatment and secondary stroke prophylaxis x 3 weeks, then aspirin alone 325 mg daily. Would also plan for repeat brain MRI with [facility] imaging in 6 months to compare to today's imaging - if blood pressure has been controlled and she has more microhemorrhages, would recommend staying on aspirin. If microhemorrhages are stable in number and size, could consider escalating her antiplatelet agent to Plavix 75 mg daily for stroke prevention. -recheck lipid panel and consider increasing dose of atorvastatin from usual dose of 40 mg daily to 80 mg once daily (DONE 10/19) -patient and are agreeable to consider transitional care services verses inpatient rehabilitation Status: Acute (2) History of ischemic stroke: Problem details: -ischemic stroke in 2014, followed by 3 months of PT/rehab. -patient states that she almost does not have any residual deficits from her previous stroke. -on aspirin 325 mg and atorvastatin 40 at home. Status: Acute (3) CKD stage 5 secondary to hypertension: Problem details: -her baseline creatinine is 4.1; she has a glomerular filtration rate of 11 by MDRD giving her stage 5 chronic kidney disease - worsening kidney function this year; creatinine now up to 4s - kidney biopsy consistent with mostly hypertension damage as opposed to diabetes despite nephrotic range urine protein; likely to progress to end stage kidney disease - she is working with [place] for transplant evaluation; possibly doing a shared partner transplant with her sister as a live donor Status: Chronic (4) Hypertensive emergency: Problem details: - On full dose ARB at home - previously on thiazide but stopped as she is sensitive to dehydration -S/P amlodipine 2.5 mg once at ED -goal is now 140/90; restarting losartan and adding metoprolol 25mg BID. Status: Acute (5) Diabetes: Problem details: - Hemoglobin A1c at 6.7 in Sep 2023 . on low dose, renal dosing for both Januvia and glimepiride. - will start Low dose ISS during this admission. Status: Acute (6) JAJA on CPAP: Problem details: -asked patient to bring her home CPAP. Status: Chronic (7) Cerebral aneurysm: Problem details: -Cerebral MRA at this admission showed at small 3 mm focal outpouching arising from the ophthalmic segment of the right intracranial ICA directed superiorly may represent a prominent infundibulum or tiny aneurysm. Given the size, radiologist recommends an interval follow-up in 6-12 months to confirm stability. Also to consider consultation with neurointerventional radiology for follow-up. -radiologist recommendation: Outpatient consultation with the [facility] Neurointerventional Service can be arranged by calling [phone]. -is already following neurology services as an outpatient. Status: Suspected (8) Hyperlipidemia: Problem details: -if repeat LDL is greater than 70 then consider increasing atorvastatin from usual dose of 40 mg daily to 80 mg daily - increased 10/19 Status: Chronic Subjective Date Seen: 10/23/23 Interval history: Daily Progress Note - Hospital Medicine Day #: 6 CC: Acute ischemic stroke (left hemipons; right temporoccipital) 24 HOUR UPDATE: dense hemiparesis same as yesterday; speech and swallow improved. tearful but resolved. Notable Labs, Micro, Rads, Interventions: Carotid U/S 10/20 Preliminary Report: Minimal atherosclerosis of the bilateral carotid bifurcations. No significant narrowing seen. F/U MRI 10/22/23 1. Small to moderate acute to early subacute infarction within the left hemipons. 2. Punctate acute to subacute infarction within the right temporooccipital region. 3. Moderate chronic microvascular ischemic changes and mild diffuse cerebral volume loss. 4. Multiple microhemorrhages in the brain demonstrate distribution typical for sequelae of hypertensive and cerebral amyloid angiography. CBC is unremarkable this morning. Hgb slow decline. 10.3. Creatinine is 3.6, creatinine clearance 11.3, GFR 13. Electrolytes are normal. Proteinuria noted in her urine. Negative urine culture. Objective: awake, alert, communicates her needs Vitals: see above Lungs: Clear. Cardiac: S1S2. Neuro: Dense hemiparesis in the right upper and lower extremity. some hip rotation is noted; some contraction along the trap and rhomboid. flaccid RUE. trunk control mostly intact. facial asymmetry noted. Disposition/Potential discharge - will need acute rehab Exam Const: Vital Signs, click to edit/add: Vital Signs - 24 hr 10/22/23 11:00 10/22/23 15:30 10/22/23 16:43 Temperature 99.3 F 99.5 F Pulse Rate Pulse Rate [Pulse Oximeter] 78 68 68 Respiratory Rate 18 18 18 Blood Pressure [le ft forearm] 177/99 H 175/102 H Pulse Oximetry 96 95 Oxygen Delivery Me thod Room Air Room Air 10/22/23 17:09 10/22/23 19:24 10/22/23 23:00 Temperature 98.7 F Pulse Rate 71 Pulse Rate [Pulse Oximeter] 81 69 Respiratory Rate 18 16 Blood Pressure [le ft forearm] 183/111 H Pulse Oximetry 97 Oxygen Delivery Me thod Room Air 10/22/23 23:18 10/22/23 23:21 10/23/23 02:38 Temperature 97.0 F L 98.9 F Pulse Rate 64 Pulse Rate [Pulse Oximeter] 69 74 Respiratory Rate 16 18 Blood Pressure [le ft forearm] 190/108 H 171/96 H Pulse Oximetry 96 94 Oxygen Delivery Me thod CPAP CPAP Labs Labs: Laboratory Results - last 24 hr 10/18/23 10/23/23 Unknown 06:10 WBC 10.27 RBC 3.55 L Hgb 10.3 L Hct 31.3 L MCV 88 MCH 29 MCHC 33 Plt Count 253 Sodium 143 Potassium 3.6 Chloride 115 H Carbon Dioxide 17 L Anion Gap 11 BUN 41 H Creatinine 3.6 H Estimated Creat Clear 11.66 Estimated GFR 13 Glucose 132 H Calcium 8.9 Urine RBC 5-10 A Urine WBC >100 A Ur Squamous Epith Cells Few Urine Bacteria Moderate A
--- NOTE | 2023-10-23 11:50 | PC.SOCIAL ---
Discharge planning: Pt was accepted to [facility] for transfer this Saturday. healthcare social worker informed the pt and her and they are thankful and in agreement for this plan. Pt needs to be to [facility] by noon on Saturday, 1pm at the latest. Non-emergent EMS will be set-up for Saturday to pick the pt up around 8am or 9am, so that the pt is there in plenty of time. Hakeem from [facility] emailed this worker a map of where the pt should be dropped off at and this worker gave a copy of it to the charge nurse to give to EMS on Saturday morning. healthcare social worker also gave the pt and her a copy of the map to keep. healthcare social worker also provided Hakeem from [facility] with the hospitalist desk phone number #[phone] for a peer to peer consult and the med/surg phone number #[phone] for a nurse to nurse consult. healthcare social worker updated the provider and charge nurse on duty today, as well. Social work to follow-up as needed.
[2023-10-23] MEDS: INSULIN ASPART 100 UNIT/ML SUBCUT ×3 (12:39→21:29)
[2023-10-23] MEDS: LATANOPROST 0.005% OPHTH 1 DROP EYE-BOTH (18:34)
--- NOTE | 2023-10-23 19:48 | PC.NURSE ---
End of Shift: Patient pleasant and cooperative, alert and oriented but aphasic/delayed. Patient vitally stable, lungs clear, BS WNL, IVs SL and intact. Patient denies pain. Patient 2 assist/walker, pivot to commode. Patient flaccid on right side. Patient at times incontinent of urine, patient had 2 BMs today. Patient tolerating regular diet. Blood sugars 117, 171,148,164. Tele=NSR with prolonged QT. Patient has spent a good amount of time up in chair today.
[2023-10-23] MEDS: SODIUM CHLORIDE 0.9 % (FLUSH) 10 ML SYRINGE 5 ML IVF (21:28)
[2023-10-24] VITALS (8 sets, daily range): BP systolic 140–172; BP diastolic 77–105; PULSE 56–78; RESP 16–22; TEMP 36.7–37.4; O2SAT 95–98
--- NOTE | 2023-10-24 06:32 | PC.NURSE ---
End of shift [id number]: A&O. Turn and repo q2h while in bed. Inc of urine. Sleeping between cares. Denies pain. Hypertensive VS otherwise stable. Pt requested no SCDs. Right arm and leg elevated on pillows.
[2023-10-24 07:04] LABS: Hematocrit 33.4 % (33.0-51.0); Mean Corpuscular HGB Conc 33 gm/dL (32-36); Mean Corpuscular Hemoglobin 29 pg (26-34); Mean Corpuscular Volume 88 fL (80-100); Platelet Count* 266 K/uL (140-440); Red Blood Count 3.81 m/uL (4.00-5.20); Slide Review Reflex No; White Blood Count* 10.82 K/uL (4.50-11.00)
[2023-10-24 07:22] LABS: Chloride* 114 mmol/L (96-114); Potassium* 3.8 mmol/L (3.6-5.1); Sodium* 143 mmol/L (135-149)
[2023-10-24 07:24] LABS: Creatinine* 3.9 mg/dL (0.5-1.5); Est. Creatinine Clearance* 10.77; Estimated Glomerular Filt Rate 12 ml/min
[2023-10-24 07:25] LABS: Anion Gap 12 mEq/L (7-15); Blood Urea Nitrogen* 42 mg/dL (7-30); Calcium* 8.7 mg/dL (8.4-10.6); Carbon Dioxide* 17 mmol/L (20-32); Glucose* 130 mg/dL (60-115)
[2023-10-24] MEDS: ATORVASTATIN CALCIUM 40 MG TABLET 80 MG PO (09:12)
[2023-10-24] MEDS: METOPROLOL TARTRATE 25 MG TABLET PO ×2 (09:12→19:00)
[2023-10-24] MEDS: CLOPIDOGREL 75 MG TABLET PO (09:13)
[2023-10-24] MEDS: ASPIRIN 81 MG TABLET EC PO (09:13)
[2023-10-24] MEDS: AMLODIPINE 5 MG TABLET PO (09:13)
[2023-10-24] MEDS: timoloL maleate 0.5 % 1 DROP EYE-BOTH ×2 (09:13→19:01)
[2023-10-24] MEDS: LOSARTAN POTASSIUM 50 MG TABLET 100 MG PO (09:13)
--- NOTE | 2023-10-24 12:16 | P.IMPN_ITS ---
Progress Note: A&P Assessment and plan (1) Hemiparesis affecting right side as late effect of cerebrovascular accident (CVA): Problem details: Prestroke MODIFIED HI SCALE: 0 Discharge MODIFIED HI SCALE: 4 1) Diagnosis: acute ischemic stroke, in left josh, also right temporal/occipita l lobe 2) Cause: small vessel vs ESUS 3) Risk factor profile: diabetes, hypertension, hyperlipidemia, prior stroke 4) Comorbidities: chronic kidney disease, on the list for kidney transplant -initially admitted with RLE weakness --> SYMPTOMS PROGRESSED AFTER ADMISSION TO DENSE HEMIPARESIS -ED initially contacted neuro stroke team who stated that patient is outside the window for thrombolytics. -On admission brain MRI and an MRA did not show any acute pathology. REPEATED 10/20 - positive acute CVA findings. -Permissive HTN initially, now goal to achieve 140/90 slowly -Speech eval done; minced and moist, thin liquids and no straws - recommendation reviewed -Aspirin 81 mg + plavix 75 mg daily for acute treatment and secondary stroke prophylaxis x 3 weeks, then aspirin alone 325 mg daily. Would also plan for repeat brain MRI with [facility] in 6 months to compare to today's imaging - if blood pressure has been controlled and she has more microhemorrhages, would recommend staying on aspirin. If microhemorrhages are stable in number and size, could consider escalating her antiplatelet agent to Plavix 75 mg daily for stroke prevention. -recheck lipid panel and consider increasing dose of atorvastatin from usual dose of 40 mg daily to 80 mg once daily (DONE 10/19) -patient and are agreeable to consider transitional care services verses inpatient rehabilitation Status: Acute (2) History of ischemic stroke: Problem details: -ischemic stroke in 2014, followed by 3 months of PT/rehab. -patient states that she almost does not have any residual deficits from her previous stroke. -on aspirin 325 mg and atorvastatin 40 at home. Status: Acute (3) CKD stage 5 secondary to hypertension: Problem details: -her baseline creatinine is 4.1; she has a glomerular filtration rate of 11 by MDRD giving her stage 5 chronic kidney disease - worsening kidney function this year; creatinine now up to 4s - kidney biopsy consistent with mostly hypertension damage as opposed to diabetes despite nephrotic range urine protein; likely to progress to end stage kidney disease - she is working with [place] for transplant evaluation; possibly doing a shared partner transplant with her sister as a live donor Status: Chronic (4) Hypertensive emergency: Problem details: - On full dose ARB at home - previously on thiazide but stopped as she is sensitive to dehydration - goal is now 140/90; restarting losartan and adding metoprolol 25mg BID 10/23/23 - adding amlodipine 5mg 10/24/23 Status: Acute (5) Diabetes: Problem details: - Hemoglobin A1c at 6.7 in Sep 2023 . on low dose, renal dosing for both Januvia and glimepiride. - will start Low dose ISS during this admission. Status: Acute (6) JAJA on CPAP: Problem details: -asked patient to bring her home CPAP. Status: Chronic (7) Cerebral aneurysm: Problem details: -Cerebral MRA at this admission showed at small 3 mm focal outpouching arising from the ophthalmic segment of the right intracranial ICA directed superiorly may represent a prominent infundibulum or tiny aneurysm. Given the size, radiologist recommends an interval follow-up in 6-12 months to confirm stability. Also to consider consultation with neurointerventional radiology for follow-up. -radiologist recommendation: Outpatient consultation with the [facility] Neurointerventional Service can be arranged by calling [phone]. -is already following neurology services as an outpatient. Status: Suspected (8) Hyperlipidemia: Problem details: -if repeat LDL is greater than 70 then consider increasing atorvastatin from usual dose of 40 mg daily to 80 mg daily - increased 10/19 Status: Chronic Subjective Date Seen: 10/24/23 Interval history: Daily Progress Note - Hospital Medicine Day #: 7 CC: Acute ischemic stroke (left hemipons; right temporoccipital) 24 HOUR UPDATE: dense hemiparesis same as yesterday; speech and swallow improved. tearful but resolved. Notable Labs, Micro, Rads, Interventions: CBC is unremarkable this morning. Hgb stabilized 11. Creatinine is 3.6 --> 3.9, creatinine clearance 11.3, GFR 13. Baseline is 4.0- 4.1 Electrolytes are normal. Proteinuria noted in her urine. Negative urine culture. Objective: awake, alert, communicates her needs Vitals: see above Lungs: Clear. Cardiac: S1S2. Neuro: Dense hemiparesis in the right upper and lower extremity. some hip rotation is noted; some contraction along the trap and rhomboid. flaccid RUE. trunk control mostly intact. facial asymmetry noted. Disposition/Potential discharge - will need acute rehab Exam Const: Vital Signs, click to edit/add: Vital Signs - 24 hr 10/23/23 13:16 10/23/23 15:00 10/23/23 15:00 Temperature 98.7 F Pulse Rate 74 Pulse Rate [Pulse Oximeter] 65 65 Respiratory Rate 22 22 Blood Pressure [Le ft Arm] 165/95 H Blood Pressure [le ft forearm] Pulse Oximetry 94 Oxygen Delivery Me thod Room Air 10/23/23 16:02 10/23/23 19:00 10/23/23 19:30 Temperature 98.7 F Pulse Rate 72 76 Pulse Rate [Pulse Oximeter] 76 Respiratory Rate 22 Blood Pressure [Le ft Arm] 186/107 H Blood Pressure [le ft forearm] Pulse Oximetry 95 Oxygen Delivery Me thod Room Air 10/24/23 00:10 10/24/23 01:38 10/24/23 02:43 Temperature 98.4 F 98.1 F Pulse Rate 56 L Pulse Rate [Pulse Oximeter] 63 60 Respiratory Rate 18 18 Blood Pressure [Le ft Arm] 155/105 H Blood Pressure [le ft forearm] 160/77 H Pulse Oximetry 96 95 Oxygen Delivery Wy thod Room Air Room Air 10/24/23 07:02 10/24/23 07:38 10/24/23 11:35 Temperature 98.2 F 98.5 F Pulse Rate 59 L Pulse Rate [Pulse Oximeter] 60 71 Respiratory Rate 16 16 Blood Pressure [Le ft Arm] Blood Pressure [le ft forearm] 172/100 H 160/99 H Pulse Oximetry 95 98 Oxygen Delivery Me thod Room Air Room Air Labs Labs: Laboratory Results - last 24 hr 10/24/23 06:36 WBC 10.82 RBC 3.81 L Hgb 11.0 L Hct 33.4 MCV 88 MCH 29 MCHC 33 Plt Count 266 Sodium 143 Potassium 3.8 Chloride 114 Carbon Dioxide 17 L Anion Gap 12 BUN 42 H Creatinine 3.9 H Estimated Creat Clear 10.77 Estimated GFR 12 Glucose 130 H Calcium 8.7
--- NOTE | 2023-10-24 13:50 | P.DS_ITS ---
DS: Providers Provider Date Seen: 10/24/23 Date of admission: 10/21/23 09:02 Primary care physician: French Huddleston MD Admitting Clinician: Mary Roland MD Consults: 10/18/23 20:30 Consult to Occupational Therapy [CONS] Routine Comment: Reason(s) for OT Consult:: Evaluate and Treat Any Restrictions?:: No Restrictions Consult to Physical Therapy [CONS] Routine Comment: Reason(s) for PT Consult:: Evaluate and Treat Any Restrictions?:: No Restrictions Consult to Speech Therapy [CONS] Routine Comment: Reason(s) for Speech Consult:: Speech/Swallowing Eval Attending Physician on discharge: Quin Gómez MD Date of Discharge: 10/24/23 DS: Diagnosis Discharge Diagnosis (1) Hemiparesis affecting right side as late effect of cerebrovascular accident (CVA): Status: Acute Problem details: Prestroke MODIFIED HI SCALE: 0 Discharge MODIFIED HI SCALE: 4 1) Diagnosis: acute ischemic stroke, in left josh, also right temporal/occipital lobe 2) Cause: small vessel vs ESUS 3) Risk factor profile: diabetes, hypertension, hyperlipidemia, prior stroke 4) Comorbidities: chronic kidney disease, on the list for kidney transplant -initially admitted with RLE weakness --> SYMPTOMS PROGRESSED AFTER ADMISSION TO DENSE HEMIPARESIS -ED initially contacted neuro stroke team who stated that patient is outside the window for thrombolytics. -On admission brain MRI and an MRA did not show any acute pathology. REPEATED 10/20 - positive acute CVA findings. -Permissive HTN initially, now goal to achieve 140/90 slowly -Speech eval done; minced and moist, thin liquids and no straws - recommendation reviewed -Aspirin 81 mg + plavix 75 mg daily for acute treatment and secondary stroke prophylaxis x 3 weeks, then aspirin alone 325 mg daily. Would also plan for repeat brain MRI with [facility] imaging in 6 months to compare to today's imaging - if blood pressure has been controlled and she has more microhemorrhages, would recommend staying on aspirin. If microhemorrhages are stable in number and size, could consider escalating her antiplatelet agent to Plavix 75 mg daily for stroke prevention. -recheck lipid panel and consider increasing dose of atorvastatin from usual dose of 40 mg daily to 80 mg once daily (DONE 10/19) -patient and are agreeable to consider transitional care services verses inpatient rehabilitation (2) CKD stage 5 secondary to hypertension: Status: Chronic Problem details: -her baseline creatinine is 4.1; she has a glomerular filtration rate of 11 by MDRD giving her stage 5 chronic kidney disease - worsening kidney function this year; creatinine now up to 4s - kidney biopsy consistent with mostly hypertension damage as opposed to diabetes despite nephrotic range urine protein; likely to progress to end stage kidney disease - she is working with [place] [facility] for transplant evaluation; possibly doing a shared partner transplant with her sister as a live donor (3) Cerebral aneurysm: Status: Suspected Problem details: -Cerebral MRA at this admission showed at small 3 mm focal outpouching arising from the ophthalmic segment of the right intracranial ICA directed superiorly may represent a prominent infundibulum or tiny aneurysm. Given the size, radiologist recommends an interval follow-up in 6-12 months to confirm stability. Also to consider consultation with neurointerventional radiology for follow-up. -radiologist recommendation: Outpatient consultation with the [facility] Neurointerventional Service can be arranged by calling [phone]. -is already following neurology services as an outpatient. (4) Hypertensive emergency: Status: Acute Problem details: - On full dose ARB at home - previously on thiazide but stopped as she is sensitive to dehydration - goal is now 140/90; restarting losartan and adding metoprolol 25mg BID 10/23/23 - adding amlodipine 5mg 10/24/23 (5) JAJA on CPAP: Status: Chronic Problem details: -asked patient to bring her home CPAP. (6) Diabetes: Status: Acute Problem details: - Hemoglobin A1c at 6.7 in Sep 2023 . on low dose, renal dosing for both Januvia and glimepiride. - will start Low dose ISS during this admission. (7) Hypertension: Status: Acute (8) Hyperlipidemia: Status: Chronic Problem details: -if repeat LDL is greater than 70 then consider increasing atorvastatin from usual dose of 40 mg daily to 80 mg daily - increased 10/19 (9) History of ischemic stroke: Status: Acute Problem details: -ischemic stroke in 2014, followed by 3 months of PT/rehab. -patient states that she almost does not have any residual deficits from her previous stroke. -on aspirin 325 mg and atorvastatin 40 at home. DS: Summary Hospital Course Hospital Course: FINAL DIAGNOSIS/FOLLOW UP ISSUES: Acute ischemic CVA - evaluated by [facility] (see [facility] for notes, imaging). Recommended aspirin 81mg + clopidogrel 75mg x 3 weeks. acute rehab; blood pressure management after permissive htn. [facility] accepted as transfer for ongoing rehab. Echo, brain mri x 2, MRA, carotid u/s, CT head -all pushed to [facility], reports in packet. Speech evaluation (bedside study) completed. OT/PT daily while admitted. BRIEF HOSPITAL COURSE: Patient was admitted for 7 days. Synopsis of acute inpatient issues are outlined above. Chronic medical conditions with notable findings outlined above. Denita presented to the ED with subtle but progressive right leg weakness. Her initial imaging was reassuring. Following admission, she developed a dense hemiparesis of the right leg, arm. She also had drooling, slurred speech and facial asymmetry. She was hypertensive. She is incontinent. She can communicate her needs. DISCHARGE MEDICATIONS: See Reconciled list - SIGNIFICANT CHANGES: decreased aspirin to 81mg started Plavix 75mg increased Lipitor to 80mg continued losartan at 100mg added metoprolol 25mg BID added amlodipine 5mg Specific instructions to the patient and follow-up are outlined below. REVIEW OF SYSTEMS No new chest pain or dyspnea Pain controlled incontinent Tolerating diet challenge PHYSICAL EXAM: CONSTITUTIONAL: alert. calm. resolved. VITAL SIGNS: see record. hypertensive. HEENT: Normocephalic, atraumatic. PERRL, EOMI, conjunctivae pink, no scleral icterus. Ears and nose externally normal. Pharynx normal. NECK: No JVD. No carotid bruit, no thyromegaly, no adenopathy. CHEST: Clear to auscultation bilaterally. HEART: S1 and S2 normal. Edema ABDOMEN: Soft, nontender. Normal bowel sounds. MUSCULOSKELETAL: No gross joint deformity or swelling. NEURO: dense hemiparesis of the right lower and upper extremities. facial asymmetry. trunk control is mostly intact. SKIN: No rashes, petechiae, concerning changes PSYCHIATRIC: Mood euthymic. DISPOSITION: Transfer to acute rehab - [facility] Time spent on discharge 37 minutes. Time Spent with Patient Time attestation: Total time spent providing and/or coordinating discharge services: Exam Const: Vital Signs, click to edit/add: Vital Signs - 24 hr 10/23/23 15:00 10/23/23 15:00 10/23/23 16:02 Temperature 98.7 F Pulse Rate 72 Pulse Rate [Pulse Oximeter] 65 65 Respiratory Rate 22 22 Blood Pressure [Le ft Arm] 165/95 H Blood Pressure [le ft forearm] Pulse Oximetry 94 Oxygen Delivery Me thod Room Air 10/23/23 19:00 10/23/23 19:30 10/24/23 00:10 Temperature 98.7 F 98.4 F Pulse Rate 76 Pulse Rate [Pulse Oximeter] 76 63 Respiratory Rate 22 18 Blood Pressure [Le ft Arm] 186/107 H 155/105 H Blood Pressure [le ft forearm] Pulse Oximetry 95 96 Oxygen Delivery Me thod Room Air Room Air 10/24/23 01:38 10/24/23 02:43 10/24/23 07:02 Temperature 98.1 F Pulse Rate 56 L 59 L Pulse Rate [Pulse Oximeter] 60 Respiratory Rate 18 Blood Pressure [Le ft Arm] Blood Pressure [le ft forearm] 160/77 H Pulse Oximetry 95 Oxygen Delivery Me thod Room Air 10/24/23 07:38 10/24/23 07:38 10/24/23 11:35 Temperature 98.2 F 98.5 F Pulse Rate Pulse Rate [Pulse Oximeter] 60 59 L 71 Respiratory Rate 16 16 Blood Pressure [Le ft Arm] Blood Pressure [le ft forearm] 172/100 H 160/99 H Pulse Oximetry 95 98 Oxygen Delivery Me thod Room Air Room Air DS: Data Data Completed and Pending Labs on day of discharge: Labs from last 24 hours 10/24/23 06:36 WBC 10.82 RBC 3.81 L Hgb 11.0 L Hct 33.4 MCV 88 MCH 29 MCHC 33 Plt Count 266 Sodium 143 Potassium 3.8 Chloride 114 Carbon Dioxide 17 L Anion Gap 12 BUN 42 H Creatinine 3.9 H Estimated Creat Clear 10.77 Estimated GFR 12 Glucose 130 H Calcium 8.7 Discharge Plan Discharge Disposition: [facility] Date of Admission: 10/21/23 09:02 Attending Provider on Discharge: Quin Gómez Primary Care Provider: French Huddleston Condition: Stable Discharge Orders: Transfer of Care to Other Hospital (ORDER); Ordered 10/25/23 Ordered By: Quin Gómez Oxygen: No Urinary Catheter: No Services not available here: Acute Neuro Rehab
--- NOTE | 2023-10-24 14:19 | PC.SOCIAL ---
Addendum entered by JERRELL Randle 10/24/23 15:30: Discharge planning: horse stud worker notified pt's that transport is tomorrow at 9am. Pt's says he plans to meet his in [place] at the [facility] tomorrow afternoon. Social work to follow-up as needed. Original Note: Discharge planning: horse stud worker notified Hakeem at [facility] that transportation is scheduled for tomorrow at 9am. horse stud worker also sent Hakeem updated PT/OT/speech notes this afternoon via fax. Social work to follow-up as needed.
--- NOTE | 2023-10-24 16:33 | PC.NURSE ---
Pt alert and oriented. Pt's right UE and LE are flaccid. Pt is able to communicate needs and use call light. Pt is transferring with an assist of two with a sarasteady. Pt had no complaints of pain. Pt is discharging to [facility] in [place] on 10/25/23.
[2023-10-24] MEDS: INSULIN ASPART 100 UNIT/ML SUBCUT (16:52)
[2023-10-24] MEDS: LATANOPROST 0.005% OPHTH 1 DROP EYE-BOTH (16:53)
--- NOTE | 2023-10-24 22:19 | PC.NURSE ---
End of shift [id number] - Pt alert, oriented, cooperative and pleasant. Speech noted to be slurred, but understandable to RN and hospital staff. Pt able to stand and pivot from chair to bedside commode using walker provided by PT/OT and able to use clayton steady to transfer from commode to bed. Pt able to follow directions and was eager to assist with transferring and self-cares as able. Pt noted to be incontinent of bladder during shift, unable to alert nursing staff of need to use commode or need to be changed. Tolerating RA, regular diet and thin liquids. Pt denied pain. Appears to be resting comfortably in bed with call light within reach.
[2023-10-25 00:15] VITALS: BP 154/91; PULSE 62; RESP 20; TEMP 36.8; O2SAT 97
[2023-10-25 02:15] VITALS: BP 174/92; PULSE 63; RESP 20; TEMP 36.9; O2SAT 97
[2023-10-25 06:29] LABS: Hematocrit 32.1 % (33.0-51.0); Hemoglobin* 10.4 gm/dL (12.0-16.0); Mean Corpuscular HGB Conc 32 gm/dL (32-36); Mean Corpuscular Hemoglobin 29 pg (26-34); Mean Corpuscular Volume 88 fL (80-100); Platelet Count* 276 K/uL (140-440); Red Blood Count 3.63 m/uL (4.00-5.20); White Blood Count* 11.32 K/uL (4.50-11.00)
[2023-10-25 06:30] LABS: Slide Review Reflex No
--- NOTE | 2023-10-25 06:37 | PC.NURSE ---
END OF SHIFT NOTE: PT PLEASANT AND COOPERATIVE WITH CARES. A&O. DENIES CP, SOB, N/V. REPOSITIONED NEEDED FOR COMFORT AND OFFLOADING WEIGHT. RUE AND RLE FLACCID.?VSS ON RA; AFEBRILE. HX OF JAJA; CPAP WORN DURING HS. PT IS TO D/C TODAY 10/24 VIA EMS NON-EMERGENT TRANSPORT TO [facility].?PT HAS BEEN INCONTINENT OF BLADDER. CALL LIGHT WITHIN PT?S REACH.?
[2023-10-25 06:45] LABS: Chloride* 114 mmol/L (96-114)
[2023-10-25 06:46] LABS: Potassium* 3.7 mmol/L (3.6-5.1); Sodium* 142 mmol/L (135-149)
[2023-10-25 06:48] LABS: Creatinine* 3.9 mg/dL (0.5-1.5); Est. Creatinine Clearance* 10.77; Estimated Glomerular Filt Rate 12 ml/min
[2023-10-25 06:49] LABS: Anion Gap 11 mEq/L (7-15); Blood Urea Nitrogen* 48 mg/dL (7-30); Carbon Dioxide* 17 mmol/L (20-32); Glucose* 156 mg/dL (60-115)
[2023-10-25 07:00] VITALS: BP 155/99; PULSE 155; PULSE 73; RESP 18; TEMP 37.1; O2SAT 98
[2023-10-25] MEDS: CLOPIDOGREL 75 MG TABLET PO (09:06)
[2023-10-25] MEDS: ASPIRIN 81 MG TABLET EC PO (09:07)
[2023-10-25] MEDS: LOSARTAN POTASSIUM 50 MG TABLET 100 MG PO (09:07)
[2023-10-25] MEDS: AMLODIPINE 5 MG TABLET PO (09:07)
[2023-10-25] MEDS: METOPROLOL TARTRATE 25 MG TABLET PO (09:07)
[2023-10-25] MEDS: ATORVASTATIN CALCIUM 40 MG TABLET 80 MG PO (09:07)
[2023-10-25] MEDS: timoloL maleate 0.5 % 1 DROP EYE-BOTH (10:00)
--- NOTE | 2023-10-25 12:18 | PC.NURSE ---
Discharge Note: Pt friendly and cooperative. Slurred speech, but patient is able to verbalize her needs and answer questions appropriately. BP's mildly hypertensive, VS otherwise WNL. LS COA. Afebrile. Flaccid right side in both upper and lower extremities. Right arm supported on pillows and foam block placed in right hand. Pt transferred to [facility] acute rehab via [facility] at 1107.
== END 2023-10-25 11:07 | DRG 64 ==
LOC: ED 19:01 → MEDSURG 19:09
PROVIDERS: Internal Medicine; Admitting Provider Student in an Organized Health Care Education/Training Program; Emergency Provider Family Medicine; PCP Family Medicine; Visit Provider Family Medicine
DX: I63.89 Other cerebral infarction (principal); N18.6 End stage renal disease; G81.91 Hemiplegia, unspecified affecting right dominant side; I12.0 Hypertensive chronic kidney disease with stage 5 chronic kidney disease or end stage renal disease; I16.1 Hypertensive emergency; R29.810 Facial weakness; R47.81 Slurred speech; I72.0 Aneurysm of carotid artery; G47.33 Obstructive sleep apnea (adult) (pediatric); E11.22 Type 2 diabetes mellitus with diabetic chronic kidney disease; Z79.84 Long term (current) use of oral hypoglycemic drugs; Z99.89 Dependence on other enabling machines and devices; E78.5 Hyperlipidemia, unspecified; Z85.3 Personal history of malignant neoplasm of breast; Z86.73 Personal history of transient ischemic attack (TIA), and cerebral infarction without residual deficits
CPT/HCPCS: 36415; 70450; 70544; 70551; 80048; 80053; 80061; 80069; 81001; 82803; 82962; 83735; 83880; 84100; 85025; 85027; 87086; 87631; 92507; 92522; 92610; 93005; 93306; 93880; 97110; 97112; 97116; 97163; 97167; 97530; 97535; 99233; 99284; 99285; G0378; G0427; A9270; J7030; J7042

== ENCOUNTER 2023-10-25 10:56 | Outpatient (CLI) | payer MEDICARE, OTHER, SELFPAY | END 2023-10-25 10:57 | disposition home or self-care (01) | LOC: AMB 11-07 03:03 | PROVIDERS: PCP Family Medicine; Visit Provider Family Medicine | DX: I69.351 Hemiplegia and hemiparesis following cerebral infarction affecting right dominant side (principal); R53.1 Weakness | CPT/HCPCS: A0425; A0426 ==

== ENCOUNTER 2024-07-15 09:00 | Outpatient (RCR) | payer MEDICARE, OTHER, SELFPAY | END 2024-09-09 16:34 | disposition home or self-care (01) | PROVIDERS: PCP Family Medicine; Visit Provider Family Medicine | DX: I69.351 Hemiplegia and hemiparesis following cerebral infarction affecting right dominant side (principal); Z74.1 Need for assistance with personal care; Z51.89 Encounter for other specified aftercare | CPT/HCPCS: 97032; 97110; 97112; 97116; 97140; 97162; 97166; 97530; 97535; X5282 ==

== ENCOUNTER 2024-07-26 11:14 | Inpatient (IN) | payer MEDICARE, OTHER, SELFPAY ==
[2024-07-26] VITALS (22 sets, daily range): BP systolic 134–175; BP diastolic 87–114; PULSE 54–66; RESP 13–24; TEMP 36.7–37.1; O2SAT 93–98; BMI 26.5
--- OUTSIDE RECORDS SUMMARY | 2024-07-26 11:18 | XMS_ITS | Encounter Summary ---
Author Organization [facility] Address [address] [place] [address] Care Team Providers Care Quality Intern Name Role Phone Elsewhere, Pcp Primary Care Provider Unavailabl e Reason for Visit * Reason Onset Date Comments Phone Contact 06/24/2024 Encounter Details Date Type Department Care Team (Latest Contact Info) Description 06/24/2024 Clinical Communication Elver Nelly [facility] in [place], [place] [address] [place] [address] Yen Latham, RGabrielaN., C.C.T.C. [address] [place] [address] Phone Contact Social History Tobacco Use Types Packs/Day Years Used Date Smoking Tobacco: Never Smokeless Tobacco: Never [facility] Utilities Answer Date Recorded In the past 12 months has e electric, gas, oil, or water company threatened to shut off services in your home? No 05/30/2024 Humiliation, Afraid, Rape, and Kick questionnair e Answer Date Recorded Within the last year, have y ou been afraid of your partner or ex-partner? No 10/25/2023 Within the last year, have y ou been humiliated or emotionally abused in other ways by your partner or ex-partner? No Within the last year, have y ou been kicked, hit, slapped, or otherwise physically hurt by your partner or ex-partner? No 10/25/2023 Within the last year, have y ou been raped or forced to have any kind of sexual activity by your partner or ex-partner? No 10/25/2023 Overall Financial Resource Strain (CARDIA) Answe r Date Recorded How hard is it for you to pa y for the very basics like food, housing, medical care, and heating? Not hard at all 12/28/2022 PHQ-2 Answer Date Recorded PHQ-2 Score 0 05/28/2024 Exercise Vital Sign Answer Date Recorde d On average, how many days pe r week do you engage in moderate to strenuous exercise (like a brisk walk)? Patient declined On average, how many minutes do you engage in exercise at this level? Patient declined 05/30/2024 Hunger Vital Sign Answer Date Recorded Within the past 12 months, y ou worried that your food would run out before you got the money to buy more. Never true 05/31/19 25 Within the past 12 months, t he food you bought just didn't last and you didn't have money to get more. Never true 05/30/2024 PRAPARE - Transportation Answer Date Re corded In the past 12 months, has l ack of transportation kept you from medical appointments or from getting medications? No 05/12 In the past 12 months, has l ack of transportation kept you from meetings, work, or from getting things needed for daily living? No 05/30/2024 Depression Answer Date Recor ded PHQ-9 Total Score (max 27) 1 11/12 Nutrition Answer Date Recorded On average, how many serving s of fruits and vegetables do you eat per day (serving size is equal to 1 cup or approximately the size of a tennis ball)? 0-2 05/30/2024 Dental Answer Date Recorded Dental: Regular Dentist Yes 12/28/19 Employment Answer Date Recorded Employment status Retired 05/30/2024 Housing Stability Answer Date Recorded What is your living situation today? I have a [facility] place to live 05/30/2024 Comments Unknown Sex and Gender Information Value Date Recorded Sex Assigned at Female 12/26/2022 11:25 AM [employer] BRUSHER Legal Sex Female 9:53 AM CDT Gender Identity Female 12/26/2022 11:25 AM [employer] BRUSHER Sexual Orientation Straight 12/26/2022 11 :25 AM [employer] BRUSHER documented as of this encounter Miscellaneous Notes * Telephone Encounter - Yen Latham R.N., C.C.T.C. - 06/24/2024 3:57 PM CDT Information Discussed I called patient's , Elías, to discuss the outcome from Selection Conference today. I notified him that the Transplant Team made the decision to remove Denita from the [facility] donor kidney transplant waiting list. Her conditioned has deteriorated since her stroke and she is no longer a candidate for transplant at this time. She was found to be frail at her waitlist re- evaluation. With her comorbidities, the Transplant Team feels the risks of transplant outweigh the benefits. Elías verbalized understanding and was disappointed but knew this was likely going to be the decision. He asked if this was the decision forever. I told him that Denita would have to significantlyimprove from her stroke to be reconsidered and would need to be independent with activities of daily living. She could be re-referred by her local journeyman wireman if it was thought that she had significant improvement in her condition. Elías again verbalized understanding and was appreciative of the phone call. He stated he will pass the information along to Denita. PLAN Disposition/Recommendation: As above Information/Education: patient/caller able to teach back Caller agreeable to plan of care: yes The following references were used: nursing clinical judgement documented in this encounter Plan of Treatment Not on file documented as of this encounter Visit Diagnoses Not on filedocumented in this encounter Additional Health Concerns Assessment Noted Time PHQ-9 Depression Total Score: 1 11/13/19 24 1:04 PM CDT documented as of this encounter Care Teams Quality Intern Relationship Specialty Start Date End Date Elsewhere, Pcp PCP - General Internal Medicine 01/02/23 documented as of this encounter
--- OUTSIDE RECORDS SUMMARY | 2024-07-26 11:18 | XMS_ITS | Clinical Summary ---
Author Organization [facility] Address [address] [place] [address] Care Team Providers Care Plate And Weld Inspector Name Role Phone Kenton Wang MD Unavailable Denita Brownlee MD Unavailable [phone] Vahid Love MD Unavailable [phone] French Huddleston MD Primary Care Provider [phone] Allergies No known active allergies Medications lancets 33 gauge misc Use daily 300 Each 6 01/12/20 14 Active blood sugar diagnostic (ONETOUCH ULTRA TEST) stripIndications:T ype 2 diabetes mellitus without complication (HC) Dispense test strips covered by the patient insurance. Test 1 times per day. Diagnosis Type 2 Diabetes. 100 Strip 5 02/04/20 15 Active aspirin 325 mg tablet Take 1 tablet by mouth once daily with a meal. 0 02/04/20 15 Active vit C-vit K-orooxq-cudtcgur- omega (Ocuvite Adult 50 Plus) 250-5-1 mg Take 1 Capsule by mouth once daily. 0 02/11/20 21 Active timoloL maleate (TIMOPTIC) 0.5 % ophthalmic solution 10/21/19 22 Active latanoprost (XALATAN) 0.005 % ophthalmic solution Place 1 Drop into both eyes at bedtime. 10/18/19 24 Active polyethylene glycol (MIRALAX; GLYCOLAX) 17 g per packet packet Mix 17 g in liquid then take by mouth once daily if needed for Constipation. Active sennosides (SENNA) 8.6 mg tablet Take 17.2 mg by mouth once daily. 11/13/19 24 Active CPAPIndications:OS A (obstructive sleep apnea) CPAP machine for home use at pressure 8 cmw, nasal mask x1/3month with nasal pillows x 2/mo 1 Each 11 01/16/20 24 Active atorvastatin (LIPITOR) 40 mg tabletIndications: Mixed hyperlipidemia Take 2 Tablets (80 mg) by mouth once daily. For Cholesterol. 182 Tablet 3 02/19/19 25 Active metoprolol tartrate 25 mg tabletIndications: Essential hypertension Take 1 Tablet (25 mg) by mouth two times daily. 182 Tablet 3 07/02/19 25 Active SITagliptin phosphate (Januvia) 25 mg tabletIndications: Type 2 diabetes mellitus with stage 4 chronic kidney disease, without long-term current use of insulin (HC) Take 1 Tablet (25 mg) by mouth once daily. For diabetes. 91 Tablet 2 07/17/19 25 Active sodium bicarbonate 650 mg tabletIndications: End-stage renal disease (HC) Take 2 Tablets (1,300 mg) by mouth two times daily. 120 Tablet 5 01/08/20 24 025 Discontin ued(*Nicole ent states no longer taking) metoprolol tartrate (LOPRESSOR) 25 mg tabletIndications: Essential hypertension Take 1 Tablet (25 mg) by mouth two times daily. 182 Tablet 3 02/19/19 25 025 Discontin ued(Reord er (E-cancel not sent)) SITagliptin phosphate (Januvia) 25 mg tabletIndications: Type 2 diabetes mellitus with stage 4 chronic kidney disease, without long-term current use of insulin (HC) Take 1 Tablet (25 mg) by mouth once daily. For diabetes. 91 Tablet 2 02/19/19 25 025 Discontin ued(Reord er (E-cancel not sent)) Active Problems Problem Noted Date Diagnosed Date Iron deficiency anemia 12/03/2023 Ischemic stroke 10/22/2023 Overview (10/22/2023): Oct 2023: right sided hemiparesis and speech problems. [facility] MRI showing Acute to early subacute Small Left hemiponds infarct and question punctate right sided infarct also. End-stage renal disease 03/07/2023 Overview (07/02/2024): June 2024: Removed from [facility] list. Hyperparathyroidism, secondary renal 03/07/2023 Carotid artery aneurysm 04/20/2016 Overview (12/03/2016): April 2016: 2.5mm distal Right carotid artery aneurysm per Neurology note, following. Saw Dr. Merchant May 2016, due to follow up 18 months. History of recurrent UTIs 09/07/2015 Overview (01/09/2016): Nov 2015: Klebsiella positive culture. Jan 06 2016: Klebsiella positive culture. JAJA 08/01/2014 AHI-27 08/05/2014 Overview (08/26/2014): 08/01/2014 AHI-27. Worse in supine position MICHELA (acute kidney injury) 06/29/2014 Overview (08/05/2014): Follow up with Dr. Kennedy, see phone note July 2014: Has some low grade proteinuria. I had taken her off her BP medications with some hypotension during her kidney injury but she says her BPs are running 130/80s currently. Discussed that given her persistent proteinuria (unlikely diabetes given relatively recent diagnosis) would recommend going back on ARB, would start losartan 25mg and prescription sent to pharmacy. Okay to go back on metformin if PCP wants to in the future. Can follow up as needed with us but would have her PCP follow proteinuria year with urine protein to creatine ratio and if rising can come back to clinic. Jose Roberto Choe MD [facility] Acute renal failure syndrome 06/28/2014 Overview (08/05/2014): June 2014: Creatinine 1.88, GFR = 17. Follow up with Dr. Kennedy, see phone note July 2014: Has some low grade proteinuria. I had taken her off her BP medications with some hypotension during her kidney injury but she says her BPs are running 130/80s currently. Discussed that given her persistent proteinuria (unlikely diabetes given relatively recent diagnosis) would recommend going back on ARB, would start losartan 25mg and prescription sent to pharmacy. Okay to go back on metformin if PCP wants to in the future. Can follow up as needed with us but would have her PCP follow proteinuria year with urine protein to creatine ratio and if rising can come back to clinic. 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. Slurred speech, left facial droop initially. MRI of the brain with a cluster of small recent infarcts in the left basal ganglia. Seeing Dr. Merchant. Started on plavix, Aspirin stopped. Coag work up done. 07/12/[address] Merchant stopped plavix and restarted on Aspirin 325, sleep study ordered. Cerebral aneurysm 06/23/2014 Overview (10/05/2021): June 2014: seen on CT Scan at [facility] at time of stroke, incidental 2 tiny aneurysms, will need radiology follow up in approximately [address] Merchant. Cerebral vascular accident 06/14/2014 Type 2 diabetes mellitus wit h stage 4 chronic kidney disease, without long-term current use of insulin 05/30/2013 Overview (02/10/2021): Dec 2012: 112, May 2013: 121. Nov 2013: fasting? 270, needs repeat to confirm. Dec 2013: confirmed diagnosis with A1c 11.8 and Fasting blood sugar 225, Metformin started. January 2014: At diabetic Ed Visit, metformin increased. July 2014: Metformin stopped June 2014 at time of stroke/acute kidney problems, but normalized and Dr. Choe ( printer repair technician) ok restart of metformin. May 2020: GFR 28, so stopping Metformin and starting Tradjenta. January 2021: Tradjenta changing to Januvia due to insurance. Adding Glimepiride also due to a1c 7.5. Scar of female breast 01/07/2013 Exposed breast implant 10/28/2012 Capsular contracture of breast implant 3 Absence of breast, acquired 07/15/2012 Unspecified hearing loss 03/25/2012 Overview (03/25/2012): Wears Hearing Aids. Lymphocytosis 09/30/2011 Overview (09/30/2011): Sep 2011: peripheral smear suggests reactive, but needs repeat CBC around Dec 2011. Malignant neoplasm of right female breast 2011 Overview (09/17/2019): Axillary Invasive Mammary; Rt DCIS, Lf infiltrating Ductal. Final Stage is IIA of Right breast per Dr. Matias note Feb 2012. Surgery: Left Total, Rt modified radical mastectomy. Colon polyp 09/06/2011 Overview (01/10/2022): Colonoscopy 08/2011 polyp repeat in 5 years Colonoscopy 08/2016 normal repeat in 5 years Dec 2021: Colonoscopy done by Dr. Masters, negative, repeat in 7 years so Due Dec 2028. Axillary lump 05/14/2011 Overview (09/17/2019): August 2011: surgically removed, pathology shows: Invasive mammary carcinoma, [place] grade I, arising in background of ectopic breast tissue. 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 blood pressure high, February 2014: doubled losartan to 100mg. Mar 2014: changed to combination blood pressure med Hyzaar. Blood pressure meds stopped temporarily due to low blood pressure at time of stroke, July 2014: Losartan restarted 25mg by Dr. Choe (Sock Ironer). Need to follow proteinuria yearly with Albumin/Creatinine Ratio. Nov 2016: increased losartan to 50mg to lower blood pressure. January 2018: Dr. Brownlee increased losartan to 100mg once daily April 2018: Dr. Brownlee started hydrochlorothiazide. Mixed hyperlipidemia 01/07/2008 Overview (08/17/2022): Mar 2012: LDL 180+ on lopid, consider change. June 2012: LDL Still over 170, Patient would like to continue gemfibrozil and recheck in 4-6 month before trying statin. December 2012: Stop Gemfibrozil (lopid) and start Atorvastatin (Lipitor) and recheck. July 2022: Triglycerides over 450 again. Consider Vascepa?? Obesity, unspecified 01/07/2008 Resolved Problems Problem Noted Date Diagnosed Date Resolved Date CKD (chronic kidney disease) stage 4, GFR 15-29 ml/min 04/07/2019 01/08/2024 Overview (10/18/2022): March 2019: Sees Dr. Brownlee. Sep 2022: Creatinine worsening to 2.9 range, looking into option of transplant at [facility]. 10/10/2022: Kidney biopsy at [facility], 1) focal segmental and global glomerulosclerosis , (likely secondary) 2. Severe hypertensive arteriosclerosis. Encounters Date Type Department Care Team Description 07/16/2024 10:20 AM CDT Office Visit [facility] [address] [place] [address] French Huddleston MD Diabetes (Last Diabetic Check: 02/20/2024 ~ Last A1C: 06/04/2024/Last Diabetic Eye Exam: 04/27/2024/Last Diabetic Education: 12/19/2022) 07/16/2024 Travel 07/15/2024 Telephone [facility] [address] [place] [id number] Kaylee Manley MBBS Follow Up 07/11/2024 Travel 07/08/2024 9:30 AM CDT Office Visit [facility] [address] [address] Kaylee Manley MBBS Follow Up (Chronic kidney disease, stage V (HC)); Medication Management (States that the sodium bicarb was denied at the last refill request - provider filling in stated that she didn't need it. ) 07/08/2024 Travel 07/03/2024 Travel 07/01/2024 Orders Only [facility] [address] [facility] [address] [place] [address] Kaylee Manley MBBS Lab (Aranesp lab orders) 05/29/2024 Telephone [facility] [address] [facility] [address] [place] [address] Denita Brownlee MD Follow Up 05/21/2024 11:00 AM CDT Office Visit [facility] [address] [facility] [address] [place] [address] Denita Brownlee MD Follow Up (1 MNTH) 05/21/2024 Travel 05/18/2024 Travel 04/27/2024 Orders Only [facility] Scanner 1 scan: (1-Ord) UNKNOWN FACILITY, 04/27/2024 from Last 3 Months Immunizations Immunization Administration Dates Next Due COVID-19 VACCINE SPIKEVAX (M ODERNA 50MCG/0.5ML) 12YO+ PFS 12/02/2023,12/03/2022 COVID-19 vaccine (Moderna 100mcg/0.5mL) PF, MDV 04/28/2020,03/31/2020 COVID-19 vaccine (Moderna 50 mcg/0.5mL) 12YO+ BIVALENT PF, MDV 11/23/2021 COVID-19 vaccine (Moderna Dale allan 50mcg/0.25mL) PF, MDV 07/26/2021,01/18/2021 COVID-19 vaccine (Pfizer-Bio NTech 30mcg/0.3mL) 12YO+ BIVALENT PF, MDV 08/16/2022 Hepatitis A (Adult) 07/27/2023,07/24/2023,2022 Hepatitis A, Unspecified 07/27/2023 Hepatitis B (Adult) 04/08/2023,,08/20/2001,08/30,09/22/1999 Influenza A (H1N1), Inactiva kassie (Age >=3 Years) 02/09/2009 Influenza, IIV3 (Age >=3 years) 11/06/19 18,11/12/2015,11/11/2014,11/01,11/20/2011,11/29/2010,11/11/2009 ,01/22/2007 Influenza, IIV4 11/21/2013 Influenza, IIV4 (=>6mos) MDV 11/04/2018, 11/05/2017,11/03/2016,11/11 Influenza, Inactivated AIIV4 (Age 65+ Years) Preserv Free 11/06/2022,10/31/2021,11/21/2020,11/05 Influenza, Inactivated IIV3 (Age 65+ Years) Preserv Free 12/02/2023 Pneumococcal Conj 20-valent (Prevnar 20) 10/06/2021 Pneumococcal conj 13-Valent (Prevnar 13) 12/25/2019 RSV, Recombinant ADJ Reconst ituted (Arexvy 120MCG/0.5mL) 12/09/2022 Td (Age >=7 Years) 05/28/2018,04/11/1998 Tdap 01/07/2008 Zoster (Shingrix-RZV, recombinant) 03/19/2023, Zoster (Zostavax-ZVL, live) 04/26/2015 Family History Medical History Relation Name Comments Liver disease Father at 57 fro m Liver problems. Cancer-breast Maternal Aunt 1 Cancer-colon Maternal Aunt 1 Cancer-breast Maternal Aunt 2 Heart Disease Maternal Grandfather [place] at 80s Hyperlipidemia Mother Diabetes Paternal Aunt 1 type 2 Cancer-breast Paternal Aunt 2 Diabetes Paternal Grandmother type 2 Cancer-ovarian Sister 1 age 59 endometrial ca Hypertension Sister 1 age 59 endometrial ca Hyperlipidemia Sister 2 Cancer-breast Sister 3 Cancer-prostate No Family History Relation Name Status Comments Father Maternal Aunt 1 Maternal Aunt 2 Maternal Grandfather Mother Paternal Aunt 1 Paternal Aunt 2 Paternal Grandmother Sister 1 age 59 endometrial ca Alive Sister 2 Sister 3 Social History Tobacco Use Types Packs/Day Years Used Date Smoking Tobacco: Never Smokeless Tobacco: Never Tobacco Cessation:Counseling Given: Yes Alcohol Use Standard Drinks/Week Comments Not Currently 0 (1 standard drink = 0.6 oz pure alcohol) glass of wine every now and then PHQ-2 Answer Date Recorded PHQ-2 TOTAL SCORE 0 02/18/2024 Social Connections Answer Date Recorded Do you often feel lonely or isolated from those around you? 0 07/16/2024 Financial Resource Strain Answer Date R ecorded Difficulty of Paying Living Expenses 3 07/16/2024 Difficulty of Paying Living Expenses Not on file 07/16/2024 Food Insecurity Answer Date Recorded Do you worry your food will run out before you are able to buy more? 1 07/16/2024 Transportation Needs Answer Date Record ed Does lack of transportation keep you from medica l appointments? 1 07/16/2024 Does lack of transportation keep you from work, meetings or getting things that you need? 1 07/16/2024 Housing Stability Answer Date Recorded What is your housing situation today? 1 07/16/2024 Interpersonal Safety Answer Date Record ed Are you being hit, kicked, p ushed or yelled at (see row info)? No 12/18/2023 Interpersonal Safety Abuse 12 - 18 Not on file 12/18/2023 Interpersonal Safety Ambulatory Vulnerability No t on file 12/18/2023 Utilities Answer Date Recorded Do you have trouble paying f or utilities (for example, heat, electricity, water, phone)? 1 07/16/2024 Comments No Sex and Gender Information Value Date Recorded Sex Assigned at Not on file Legal Sex Female 6:51 AM CLAIM PROCESSING SPECIALIST Gender Identity Not on file Sexual Orientation Not on file Occupation Industry Job Start Date Job End Date teacher Not on file Not on file Not on file Obstetrics History Last Filed Vital Signs Vital Sign Reading Time Taken Comments Blood Pressure 132/81 07/16/2024 10:31 AM CDT recheck BP Pulse 47 07/16/2024 10:24 AM CDT Temperature 36.4 C (97.6 F) 12/18/2023 1:28 PM CLAIM PROCESSING SPECIALIST Respiratory Rate 16 12/18/2023 1:28 PM CLAIM PROCESSING SPECIALIST Oxygen Saturation 99% 07/16/2024 10: 24 AM CDT Inhaled Oxygen Concentration - - Weight 64.7 kg (142 lb 11.2 oz) 025 10:24 AM CDT Height 160 cm (5' 3) 05/15/2023 9:43 AM CDT Body Mass Index 25.28 05/15/2023 9:43 AM CDT Plan of Treatment Upcoming Encounters Date Type Department Care Team (Late st Contact Info) Description 08/18/2024 9:30 AM CDT Office Visit [facility] [address] [place] [address] Kaylee Manley, DONNELL [address] [facility] [address] [place] [address] 01/18/2025 10:20 AM CLAIM PROCESSING SPECIALIST Office Visit [facility] [address] [place] [address] French Huddleston MD [address] [place] [address] Health Maintenance Due Date Last Done Comments BMI (ht and wt on same day) for age 18+ 05/14/2024 05/15/2023, 12/03/2022, 10/31/2022, Additional history exists COVID-19 vaccine series ( season) 2024 12/02/2023, 12/03/2022, 08/16/2022, Additional history exists Depression screening for age 12+ 02/20/2025 02/21/2024, 02/20/2024, 02/18/2024, Additional history exists Medicare Wellness for age 65+ 02/20/2025, 12/03/2022, 10/06/2021, Additional history exists Tetanus booster 05/28/2028 05/28/2018, 12/13, 04/11/1998 Lipids for age 45-75 10/06/2028 10/07/2023, 08/16/2022, 08/16/2022, Additional history exists Colonoscopy through age 75 01/10/202901/10, 01/10/2022, 01/10/2022, Additional history exists Tdap Completed 01/07/2008 Hepatitis C screening for ag e 18-79 Completed 05/09/2015 DEXA/DXA scan for age 65+ Completed 09/30/2019 Pneumococcal series for age 50+ Completed , 12/25/2019 RSV vaccine for adults or Completed 12/09/2022 Zoster (shingles) series for age 50+ Completed 03/19/2023, 01/18/2023, 04/26/2015 Hepatitis B series for 19+ Completed 04/08, 02/25/2023, 08/20/2001, Additional history exists Influenza Vaccine Completed 12/02/2023, , 10/31/2021, Additional history exists Goals Goal Patient Goal Type Associated Problems Recent Progress Patient-Stated? Author BLOOD PRESSURE-MA INTAINS BP LESS THAN 130/80 Blood Pressure No Cheryl Kimball MD Medical Devices Implanted Type Area Executive Associate Device Identifier Shelf Expiration Date Model / Serial / Lot [id number] [id number] Mammary 500cc [[id number]] Implanted:Qty: 1 on 07/15/2012 at [facility] Explanted:at [facility] (Quantity not on file) Right: Breast [employer] J Med Access [id number] # / [id number] Mammary 500cc [[id number]] Implanted:Qty: 1 on 07/15/2012 at [facility] Explanted:at [facility] (Quantity not on file) Left: Breast [employer] J Med Access [id number] # / [id number] / [id number] 2implnt Mammary 500cc [[id number]] Implanted:Qty: 1 on 09/24/2012 at [facility] Explanted:at [facility] (Quantity not on file) Right: Breast J [employer] Med Access 2017 [id number] # / [id number] / [id number] Procedures Procedure Name Priority Date/Time Associated Diagnosis Comments FERRITIN Routine 07/08/2024 9:26 AM CDT Chronic kidney disease, stage V (HC) IRON PLUS IRON BINDING CAP Routine 07/08/2024 9:26 AM CDT Chronic kidney disease, stage V (HC) PHOSPHORUS Routine 07/08/2024 9:26 AM CDT Chronic kidney disease, stage V (HC) PTH,INTACT Routine 07/08/2024 9:26 AM CDT Chronic kidney disease, stage V (HC) VITAMIN D 25 (DEFICIENCY) Routine 07/08/2024 9:26 AM CDT Chronic kidney disease, stage V (HC) HEMOGLOBIN STAT 07/08/2024 9:21 AM CDT Chronic kidney disease, stage V (HC) BASIC METABOLIC PANEL STAT 07/08/2024 9:21 AM CDT Chronic kidney disease, stage V (HC) BASIC METABOLIC PANEL Routine 05/21/2024 11:40 AM CDT Chronic kidney disease, stage V (HC) SCAN-EYE EXAM 04/27/2024 12:00 AM CDT LIPID PANEL Routine 10/07/2023 10:32 AM CDT Mixed hyperlipidemia COLONOSCOPY SCREENING Routine 01/10/2022 8:25 AM CLAIM PROCESSING SPECIALIST History of colon polyps XR DXA BONE DENSITY 2 SITES AXIAL Routine 09/30/2019 8:48 AM CDT Menopause ANTI HCV Routine 05/09/2015 9:09 AM CDT Need for hepatitis C screening test from Last 3 Months or Most Recently Relevant to Health Maintenance Results * VITAMIN D 25 (DEFICIENCY) (07/08/2024 9:26 AM CDT) VITAMIN D,25-OH,TOTAL,IA 37 30 - 100 ng/mL [facility] Comment: Vitamin D Status 25-OH Vitamin D: Deficiency: <20 ng/mL Insufficiency: 20 - 29 ng/mL Optimal: > or = 30 ng/mL For 25-OH Vitamin D testing on patients on D2-supplementation and patients for whom quantitation of D2 and D3 fractions is required, the [email or web address].comureD(TM) 25-OH VIT D, (D2,D3), LC/MS/MS is recommended: order code 30244 (patients >2yrs). See Note 1 Note 1 For additional information, please refer to http://education.Nimsoft/faq/ZGD746 (This link is being provided for informational/ educational purposes only.) Blood BLOOD SPECIMEN / Unknown 07/08/2024 9:26 AM CDT 07/08/2024 9:30 AM CDT Kaylee MAK SEND OUTS F inal Result Performing Organization Address [facility]/ZIP Co de Phone Number [employer] [facility] [address] [place] [address], [facility] [address] [place] [address] * IRON PLUS IRON BINDING CAP (07/08/2024 9:26 AM CDT) IRON, TOTAL 63 45 - 160 mcg/dL [facility] IRON BINDING CAPACITY 257 250 - 450 mcg/dL (calc) [facility] % SATURATION 25 16 - 45 % (calc) [facility] Blood BLOOD SPECIMEN / Unknown 07/08/2024 9:26 AM CDT 07/08/2024 9:30 AM CDT us Kaylee JACOBO CHEMISTRY F inal Result Performing Organization Address [facility]/ZIP Co de Phone Number [employer] [facility] [address] [place] [address], [facility] [address] [place] [address] * PHOSPHORUS (07/08/2024 9:26 AM CDT) PHOSPHATE ( PHOSPHORUS) 4.3 2.1 - 4.3 mg/dL [facility] Blood BLOOD SPECIMEN / Unknown 07/08/2024 9:26 AM CDT 07/08/2024 9:30 AM CDT Kaylee JACOBO CHEMISTRY F inal Result Performing Organization Address [facility]/ZIP Co de Phone Number [employer] [facility] [address] [place] [place] [address], [place] [phone] [facility] [address] [facility] [place] [address] * (ABNORMAL) PTH,INTACT (07/08/2024 9:26 AM CDT) PARATHYROID HORMONE, INTACT 93(H) 16 - 77 pg/mL [facility] Comment: Interpretive Guide Intact PTH Calcium ------- Normal Parathyroid Normal Normal Hypoparathyroidism Low or Low Normal Low Hyperparathyroidism Primary Normal or High High Secondary High Normal or Low Tertiary High High Non-Parathyroid Hypercalcemia Low or Low Normal High CALCIUM 9.5 8.6 - 10.4 mg/dL [facility] Blood BLOOD SPECIMEN / Unknown 07/08/2024 9:26 AM CDT 07/08/2024 9:30 AM CDT us Kaylee JACOBO SEND OUTS F inal Result Performing Organization Address City/[facility]/ZIP Co de Phone Number [facility] [address] [facility] [place] [address], [place] [phone] [facility] [address] [facility] [place] [address] * (ABNORMAL) FERRITIN (07/08/2024 9:26 AM CDT) FERRITIN 559(H) 16 - 288 ng/mL [facility] Blood BLOOD SPECIMEN / Unknown 07/08/2024 9:26 AM CDT 07/08/2024 9:30 AM CDT us Kaylee JACOBO CHEMISTRY F inal Result Performing Organization Address City/[facility]/ZIP Co de Phone Number [facility] [address] [place] [address], [place] [phone] [facility] [address] [place] [address] * HEMOGLOBIN (07/08/2024 9:21 AM CDT) HEMOGLOBIN 12.3 12.0 - 16.0 g/dL 07/08/2024 9:59 AM CDT [facility] MCV 91 80 - 100 fL 07/08/2024 9:59 AM CDT [facility] Blood BLOOD SPECIMEN / Unknown [facility] / Unknown 07/08/2024 9:21 AM CDT 07/08/2024 9:21 AM CDT us Kaylee JACOBO HEMATOLOGY F inal Result Performing Organization Address City/[facility]/ZIP Co de Phone Number [address] [address] * (ABNORMAL) BASIC METABOLIC PANEL (07/08/2024 9:21 AM CDT) Only the most recent of2 resultswithin the time period is included. SODIUM 141 136 - 145 mmol/L 07/08/2024 10:14 AM CDT [facility] POTASSIUM 4.0 3.5 - 5.1 mmol/L 07/08/2024 10:14 AM CDT [facility] CHLORIDE 102 98 - 107 mmol/L 07/08/2024 10:14 AM CDT [facility] CO2,TOTAL 27 22 - 29 mmol/L 07/08/2024 10:14 AM CDT [facility] ANION GAP 12 5 - 18 07/08/2024 10:14 AM CDT [facility] GLUCOSE 115(H) 70 - 99 mg/dL 07/08/2024 10:14 AM CDT [facility] CALCIUM 9.6 8.8 - 10.4 mg/dL 07/08/2024 10:14 AM CDT [facility] Comment: Reference ranges for this test were updated on 12/17/2023 to reflect our healthy population more accurately. Reference range changes are not retroactively applied to results, but previous results using the same methodology can be interpreted in the context of the new reference range. BUN 42(H) 8 - 23 mg/dL 07/08/2024 10:14 AM CDT [facility] CREATININE 4.36(H) 0.50 - 0.90 mg/dL 07/08/2024 10:14 AM CDT [facility] BUN/CREAT RATIO 10 10 - 20 10:14 AM CDT [facility] eGFR 10(L) >90 mL/min/1. 73m2 07/08/2024 10:14 AM CDT [facility] Comment:As of 2021, eG FR is calculated by the CKD-EPI creatinine equation without race adjustment. eGFR can be influenced by muscle mass, exercise, and diet. The reported eGFR is an estimation only and is only applicable if the renal function is stable. Blood BLOOD SPECIMEN / Unknown [facility] Collect / Unknown 07/08/2024 9:21 AM CDT 07/08/2024 9:21 AM CDT us Kaylee JACOBO CHEMISTRY F inal Result [address] [address] * SCAN-EYE EXAM (04/27/2024 12:00 AM CDT) us Scanner OTHER Final Result * (ABNORMAL) LIPID PANEL (10/07/2023 10:32 AM CDT) CHOLESTEROL,TOTAL 175 100 - 199 mg/dL 10/07/2023 6:08 PM CDT [facility] Comment: Cholesterol, Total Reference Ranges Desirable <200 mg/dL Borderline 200-239 mg/dL High >=240 mg/dL TRIGLYCERIDES 423(H) <150 mg/dL 10/07/2023 6:08 PM CDT [facility] HDL CHOLESTEROL 33(L) >40 mg/dL 4 6:08 PM CDT [facility] NON-HDL CHOLESTEROL 142 <145 mg/dl 10/07/2023 6:08 PM CDT [facility] CHOL/HDL RATIO 5.30(H) <4.50 10/07/2023 6:08 PM CDT [facility] LDL CHOLESTEROL 4 6:08 PM CDT [facility] Comment:Invalid LDL when Tri g >400. VLDL CHOLESTEROL COMMENT 10/07/2023 6:08 PM CDT [facility] Comment:Unable to calculate VLDL. PROVIDER ORDERED STATUS RANDOM 10/07/2023 6:08 PM CDT [facility] Blood BLOOD SPECIMEN / Unknown Butterfly / Unknown 10/07/2023 10:32 AM CDT 10/07/2023 10:32 AM CDT us rFench Huddleston MD CHEMISTRY Final Res ult [facility] [address] [place] [address], [place] * COLONOSCOPY (01/10/2022 8:43 AM CLAIM PROCESSING SPECIALIST) 01/10/2022 8:43 AM CLAIM PROCESSING SPECIALIST Narrative Transcriptions Tom Masters MD - 01/10/2022 9:53 AM CST Patient Name: Denita Osuna Procedure Date: 01/10/2022 Gender: Female Date of : 1955 Admit Type: Outpatient Procedure: Colonoscopy Proceduralist: Tom Masters MD , Ellie Arizmendi, RN (Nurse), Bhakti Treviño RN (Nurse) Referring MD: French Huddleston Indications/Pre-Op Diagnosis: High risk colon cancer surveillance:Personal history of adenoma less than 10 mm in size, Last colonoscopy: September 2016 Medications: Fentanyl 100 micrograms IV, Midazolam 2 mgIV, The level of sedation administered wasmoderate Procedure Description: The patient had risks, benefits and alternatives explained to andgave informed consent. The patient had a stable cardiopulmonary status and judged an adequate candidate for conscious sedation. The PCF-H190L [id number] was passed through the anus and advanced to the cecum, identified by appendiceal orifice and ileocecal valve. The colonoscopy was performed without difficulty. The patient toleratedthe procedure well. The quality of the bowel preparation was good. The ileocecal valve, appendiceal orifice, and rectum were photographed. Complications: No immediate complications. Estimated Blood Loss & Specimen: Estimated blood loss: none. Specimen collected - None Findings: The perianal and digital rectal examinations were normal. The entire examined colon appeared normal. Impressions/Post-Op Diagnosis: - The entire examined colon is normal. - No specimens collected. Recommendation: - Patient has a contact number available for emergencies. The signsand symptoms of potential delayed complications were discussed with the patient. Return to normal activities tomorrow. Written discharge instructions were provided to the patient. - Resume previous diet. - Continue present medications. - Repeat colonoscopy in 7 years for surveillance. Moderate Sedation: A time out was performed before the procedure. Moderate (conscious) sedation was administered by the endoscopy nurse and supervised bythe endoscopist. The following parameters were monitored: oxygensaturation, heart rate, blood pressure, EKG, CO2, respiratory rate, adequacy of pulmonary ventilation and reponse to care. Please refer to the patient's medical record flowsheets and nursing notes for moderate sedation details. Total physician intraservice time was 21 minutes. Tom Masters MD 01/10/2022 9:53:35 AM This report has been signed electronically. Note Initiated On: 01/10/2022 8:43 AM Procedure Code(s): --- Professional --- 07781, Colonoscopy, flexible; diagnostic, including collection of specimen(s) bybrushing or washing, when performed (separateprocedure) Diagnosis Code(s): --- Professional --- Z86.010, Personal history of colonicpolyps CPT copyright 2020 [employer]. All rights reserved. The codes documented in this report are preliminary and upon queen's counsel reviewmay be revised to meet current compliance requirements. Scope In: 9:26:41 AM Scope Withdrawal Time 0 hours 6 minutes 4 seconds Scope Out: 9:46:50 AM Tom Masters MD PROCEDURE ORD Final Res ult * XR DXA BONE DENSITY 2 SITES AXIAL [15454.1] (09/30/2019 8:48 AM CDT) Anatomical Region Laterality Modality Spine, HIPS, HIPL, HIPR Other Narrative 10/02/2019 9:10 AM CDT Please see scanned document for results of this study. French Huddleston MD DEXA Final Res ult * ANTI HCV [88461.2] (05/09/2015 9:09 AM CDT) HEPATITIS C ANTIBODY Non-Reacti ve Non-Reacti ve 05/09/2015 3:52 PM CDT [facility] Blood specimen (specimen) BLOOD SPECIMEN / Unknown Non-Blood / Unknown 05/09/2015 9:09 AM CDT 05/09/2015 9:09 AM CDT [facility]ative [facility] - 05/09/2015 3:52 PM CDT Antibodies to HCV not detected; does not exclude the possibility of exposure to HCV. us French Huddleston MD SEND OUTS Final Res ult [facility] [address] [place] [address], [place] from Last 3 Months or Most Recently Relevant to Health Maintenance Insurance MEDICARE PB ONLY [employer] [place] MEDICARE PART A HB ONLY MEDICARE PART B HB ONLY [employer] Advance Directives Documents on File Type Date Recorded Patient Professor Of Spanish Expl anation Healthcare Directive 09/30/2020 021 * Full Code (Latest Code Status on File) Date Activated Date Inactivated Comments 06/29/2014 3:14 PM 07/01/2014 1:41 PM * Full Code Date Activated Date Inactivated Comments 01/07/2013 10:07 AM 01/07/2013 3:36 PM * Full Code Date Activated Date Inactivated Comments 10/28/2012 1:37 PM 10/29/2012 2:26 AM * Full Code Date Activated Date Inactivated Comments 09/24/2012 11:13 AM 09/24/2012 3:50 PM * Full Code Date Activated Date Inactivated Comments 07/15/2012 7:18 AM 07/15/2012 12:43 PM Care Teams Plate And Weld Inspector Relationship Specialty Start Date End Date French Huddleston MD [address] [place] [address] PCP - General Family Practice 07/11/22 Kenton Wang MD [address] [place] [address] Sleep Medicine 09/18/19 Denita Brownlee MD [address] [address] [place] [address] Nephrology Nephrology 09/30/20 Vahid Love MD [address] [address] Neurology Neurology 10/06/21
--- OUTSIDE RECORDS SUMMARY | 2024-07-26 11:18 | XMS_ITS ---
Author Organization [facility] Address [address] [place] [address] Care Team Providers Care Rouge Presser Name Role Phone Elsewhere, Pcp Primary Care Provider Unavailabl e Transplant Episode Kidney Candidate [facility] ([place], [place]) - [facility] Center waitlisted on 02/21/2023 Marked as Removed on 06/24/2024 Reason: Candidate Condition Deteriorated, too Sick for Transplant Kidney CoordinatorYen Latham R.N., C.C.T.C. Email: [email or web address] Scores Score Value Updated Exceptions/Reas ons CPRA 78 06/12/2024 EPTS (Calc) 68 07/26/2024 [place] Organ Diagnosis Organ Primary Contributory Kidney Diabetes Mellitus - Type II Care Team Name Role Phone Fax Email Yen Latham R.N., C.C.T.C. Kidney Coordinator [phone] [email or web address] Nisha Mccartney M.D. Transplant Heating Plant Superintendent [phone] Marina [email or web address] Denita Brownlee M.D. Referring Provider [phone] N/A Feliberto G Andriy, M.D. Transplant Surgeon N/A N/A N/A Events Pre-Transplant Referred: 09/03/2022 Evaluation began: 01/02/2023 Committee: 02/20/2023 Center waitlisted: 02/21/2023
--- OUTSIDE RECORDS SUMMARY | 2024-07-26 11:18 | XMS_ITS | Encounter Summary ---
Author Organization [facility] Address [address] [place] [address] Care Team Providers Care Director Of Strategic Sourcing Name Role Phone Elsewhere, Pcp Primary Care Provider Unavailabl e Reason for Visit * Reason Comments [facility] Status Change Encounter Details Date Type Department Care Team (Latest Contact Info) Description 06/24/2024 Documentation Elver Nelly [facility] for Transplantation and Clinical Regeneration in [place], [place] [address] [place] [address] Yen Latham, R.N., C.C.T.C. [address] [place] [address] [facility] Status Change Social History Tobacco Use Types Packs/Day Years Used Date Smoking Tobacco: Never Smokeless Tobacco: Never [facility] Utilities Answer Date Recorded In the [...] your living situation today? I have a [facility] place to live 05/30/2024 Comments Unknown Sex and Gender Information Value Date Recorded Sex Assigned at Female 12/26/2022 11:25 AM STEEPLECHASE JOCKEY Legal Sex Female 9:53 AM CDT Gender Identity Female 12/26/2022 11:25 AM STEEPLECHASE JOCKEY Sexual Orientation Straight 12/26/2022 11 :25 AM STEEPLECHASE JOCKEY documented as of this encounter Progress Notes * Yen Latham R.N., C.C.T.C. - 06/24/2024 4:04 PM CDT Status changed to: Removed from [facility] waiting list Reason for status change: Condition deteriorated and is too sick for transplant Plan for status change: Patient was discussed in Selection Conference today (after completing her waitlist re-evaluation). The Transplant Team made the decision to remove the patient from the [facility] waiting list due to condition deteriorated after stroke last fall. She is frail and has significant com orbidities, making the risks of transplant outweigh the potential benefits. I called patient's , Elías, and notified him of Selection Conference decision; he verbalized understanding and will give the information to Denita. They will also receive notification by letter in the mail. I removed the patient from [facility] donor waiting list on 06/24/24 at 3:36 p.m. [facility] and Epic were updated to reflect removed status. documented in this encounter Plan of Treatment Not on file documented as of this encounter Visit Diagnoses Not on filedocumented in this encounter Additional Health Concerns Assessment Noted Time PHQ-9 Depression Total Score: 1 11/13/19 24 1:04 PM CDT documented as of this encounter Care Teams Director Of Strategic Sourcing Relationship Specialty Start Date End Date Elsewhere, Pcp PCP - General Internal Medicine 01/02/23 documented as of this encounter
--- OUTSIDE RECORDS SUMMARY | 2024-07-26 11:18 | XMS_ITS | Clinical Summary ---
Author Organization [facility] Address [address] [place] [address] Care Team Providers Care Historic Preservationist Name Role Phone Elsewhere, Pcp Primary Care Provider Unavailabl e Source Comments Patient records contain information from all sites at [facility]. For routine questions regarding patient records, call [phone] during business hours, M-F 8:00 AM - 5:00 PM Central Time. Record requests for emergency care only can be directed to [phone] at any time.[facility] Allergies No known active allergies Medications atorvastatin (LIPITOR) 40 mg tablet Take 80 mg by mouth daily. 3 Active Januvia 25 mg tablet Take 25 mg by mouth daily. 3 Active latanoprost (Xalatan) 0.005 % ophthalmic solution Administer 1 drop into both eyes at bedtime. Active [id number] c-wbcw-pav-maldonado (Ocuvite Adult 50 Plus) 250 mg (90 mg-160 mg) capsule Take 1 capsule by mouth daily. Active timoloL (BetimoL) 0.5 % ophthalmic solution Administer 1 drop into both eyes 2 (two) times a day. Active metoprolol tartrate (Lopressor) 25 mg tablet Take 25 mg by mouth 2 (two) times a day. Active polyethylene glycol (Miralax) 17 gram powder packet Take 17 g by mouth daily as needed for constipation. Dissolve each 17 g dose in 240 mLs (8 ounces) of beverage. Active aspirin [address] tablet Take 1 tablet (325 mg total) by mouth daily. 4 Active sennosides (Senokot) 8.6 mg tablet Take 2 tablets (17.2 mg total) by mouth daily with midday meal. 4 Active sodium bicarbonate 650 mg tablet Take 2 tablets (1,300 mg total) by mouth 2 (two) times a day. 4 Active DME CPAP daily. DME Order Active Active Problems Problem Noted Date Diagnosed Date Spasticity 11/07/2023 Dysarthria Disorder From Stroke 11/04/2023 Hyperphosphatemia 11/04/2023 Neurogenic Bladder 11/04/2023 Constipation 11/04/2023 Pretransplant Recipient Evaluation Exam 01/03/20 Chronic Kidney Disease Stage 5 Glomerular Filtration Rate Less Than 15 01/02/2023 Chronic Kidney Disease Stage 4 Glomerular Filtration Rate 15-29 04/07/2019 Overview (01/02/2023): March 2019: Sees Dr. Brownlee. Sep 2022: Creatinine worsening to 2.9 range, looking into option of transplant at [facility]. 10/10/2022: Kidney biopsy at [facility], 1) focal segmental and global glomerulosclerosis , (likely secondary) 2. Severe hypertensive arteriosclerosis. March 2019: Sees Dr. Brownlee. Aneurysm Carotid Artery 04/20/2016 Overview (01/02/2023): April 2016: 2.5mm distal Right carotid artery aneurysm per Neurology note, following. Saw Dr. Merchant May 2016, due to follow up 18 months. Apnea Sleep Obstructive 08/05/2014 Overview (01/02/2023): 08/01/2014 AHI-27. Worse in supine position Infarction Cerebral 07/12/2014 Aphasia From Stroke 07/12/2014 Failure Renal Acute (Acute Kidney Injury) 2014 Overview (01/02/2023): Follow up with Dr. Kennedy, see phone [...] Jose Roberto Choe MD [facility] Follow up with Dr. Kennedy, see phone [...] Jose Roberto Choe MD [facility] Failure Renal Acute (Acute Kidney Injury) 2014 Overview (01/02/2023): June 2014: Creatinine 1.88, GFR = 17. [...] Jose Roberto Choe MD [facility] June 2014: Creatinine 1.88, GFR = 17. [...] Jose Roberto Choe MD [facility] Thrombosis Cerebral With Infarction 06/23/2014 Overview (01/02/2023): June 2014: Was seen at [facility]. Slurred speech, left facial droop initially. MRI of the brain with a cluster of small recent infarcts in the left basal ganglia. Seeing Dr. Merchant. Started on plavix, Aspirin stopped. Coag work up done. 07/12/[address] Merchant stopped plavix and restarted on Aspirin 325, sleep study ordered. Aneurysm Cerebral Unruptured 06/23/2014 Overview (01/02/2023): June 2014: seen on CT Scan at [facility] at time of stroke, incidental 2 tiny aneurysms, will need radiology follow up in approximately [address] Merchant. Stroke 06/14/2014 Diabetes Mellitus Type 2 05/30/2013 Overview (01/02/2023): Dec 2012: 112, May 2013: 121. Nov 2013: fasting? 270, needs repeat to confirm. Dec 2013: confirmed diagnosis with A1c 11.8 and Fasting blood sugar 225, Metformin started. January 2014: At diabetic Ed Visit, metformin increased. July 2014: Metformin stopped June 2014 at time of stroke/acute kidney problems, but normalized and Dr. Choe ( compensation intern) ok restart of metformin. May 2020: GFR 28, so stopping Metformin and starting Tradjenta. January 2021: Tradjenta changing to Januvia due to insurance. Adding Glimepiride also due to a1c 7.5. Dec 2012: 112, May 2013: 121. Nov 2013: fasting? 270, needs repeat to confirm. Dec 2013: confirmed diagnosis with A1c 11.8 and Fasting blood sugar 225, Metformin started. January 2014: At diabetic Ed Visit, metformin increased. July 2014: Metformin stopped June 2014 at time of stroke/acute kidney problems, but normalized and Dr. Choe ( compensation intern) ok restart of metformin. May 2020: GFR 28, so stopping Metformin and starting Tradjenta. January 2021: Tradjenta changing to Januvia due to insurance. Adding Glimepiride also due to a1c 7.5. Scar Conditions And Fibrosis Of Skin 01/07/2013 Other Mechanical Complicatio n Of Breast Prosthesis And Implant Initial 10/28/2012 Contracture Breast Implant Initial 09/24/2012 Mastectomy Bilateral Total Status Post 3 Loss Hearing Right 03/25/2012 Overview (01/02/2023): Wears Hearing Aids. Wears Hearing Aids. Lymphocytosis 09/30/2011 Overview (01/02/2023): Sep 2011: peripheral smear suggests reactive, but needs repeat CBC around Dec 2011. Sep 2011: peripheral smear suggests reactive, but needs repeat CBC around Dec 2011. Malignant Neoplasm Of Breast Female Right 2011 Overview (01/02/2023): Axillary Invasive Mammary; Rt DCIS, Lf infiltrating Ductal. Final Stage is IIA of Right breast per Dr. Matias note Feb 2012. Surgery: Left Total, Rt modified radical mastectomy. Axillary Invasive Mammary; Rt DCIS, Lf infiltrating Ductal. Final Stage is IIA of Right breast per Dr. Matias note Feb 2012. Surgery: Left Total, Rt modified radical mastectomy. Polyp Colon 09/06/2011 Overview (01/02/2023): Colonoscopy 08/2011 polyp repeat in 5 years Colonoscopy 08/2016 normal repeat in 5 years Dec 2021: Colonoscopy done by Dr. Masters, negative, repeat in 7 years so Due Dec 2028. Colonoscopy 08/2011 polyp repeat in 5 years Colonoscopy 08/2016 normal repeat in 5 years Hyperlipidemia Mixed 01/07/2008 Overview (01/02/2023): Mar 2012: LDL 180+ on lopid, consider change. June 2012: LDL Still over 170, Patient would like to continue gemfibrozil and recheck in 4-6 month before trying statin. December 2012: Stop Gemfibrozil (lopid) and start Atorvastatin (Lipitor) and recheck. July 2022: Triglycerides over 450 again. Consider Vascepa?? Mar 2012: LDL 180+ on lopid, consider change. June 2012: LDL Still over 170, Patient would like to continue gemfibrozil and recheck in 4-6 month before trying statin. December 2012: Stop Gemfibrozil (lopid) and start Atorvastatin (Lipitor) and recheck. Hypertension Essential Primary 01/07/2008 Overview (01/02/2023): July 2011,Was on benicar without problems, changed to losartan only due to cost. blood pressure high, February 2014: doubled losartan to 100mg. Mar 2014: changed to combination blood pressure med Hyzaar. Blood pressure meds stopped temporarily due to low blood pressure at time of stroke, July 2014: Losartan restarted 25mg by Dr. Choe ([employer]). Need to follow proteinuria yearly with Albumin/Creatinine Ratio. Nov 2016: increased losartan to 50mg to lower blood pressure. January 2018: Dr. Brownlee increased losartan to 100mg once daily April 2018: Dr. Brownlee started hydrochlorothiazide. Obesity Unspecified 01/07/2008 Encounters Date Type Department Care Team Description 06/24/[address] [facility] in [place], [place] [address] [place] [address] Yen Latham R.N., C.C.T.C. UNOS Status Change 06/24/2024 Clinical Communication [facility] in [place], [place] [address] [place] [address] Yen Latham R.N., C.C.T.C. Phone Contact 06/05/2024 4:00 PM CDT Office Visit [facility] in [place], [place] [address] [place] [address] Nisha Mccartney M.D. Pretransplant Recipient Evaluation Exam (Primary Dx) 06/05/2024 2:15 PM CDT Comprehensive Visit [facility] in [place], [place] [address] [place] [address] Eren Diaz M.D. Pretransplant Recipient Evaluation Exam (Primary Dx); Chronic Kidney Disease Stage 4 Glomerular Filtration Rate 15-29 (HCC); Hypertension Essential Primary; Hemiplegia And Hemiparesis Following Cerebral Infarction Affecting Right Dominant Side (HCC); Apnea Sleep Obstructive; Diabetes Mellitus Type 2 (HCC); Hyperlipidemia Mixed 06/05/2024 11:00 AM CDT Comprehensive Visit Department of Physical Medicine and Rehabilitation in [place], [place] [address] [place] [address] Manny Kulkarni M.D. Margarita Jasso O.T., MOT Debility (Primary Dx); Pretransplant Recipient Evaluation Exam; Chronic Kidney Disease Stage 4 Glomerular Filtration Rate 15-29 (HCC) 06/05/2024 7:03 AM CDT - 06/05/2024 11:59 PM CDT Hospital Encounter Department of Cardiovascular Diseases in [place], [place] [address] [place] [address] Manny Kulkarni M.D. Pretransplant Recipient Evaluation Exam; Chronic Kidney Disease Stage 4 Glomerular Filtration Rate 15-29 (HCC); Hypertension Essential Primary Discharge Disposition: Home or Self Care 06/04/2024 1:00 PM CDT [facility] [place] [place] [address] [place] [address] Manyn Kulkarni M.D. Doran, Donica E M.S.W., L.I.C.S.W. Pretransplant Recipient Evaluation Exam; Chronic Kidney Disease Stage 4 Glomerular Filtration Rate 15-29 (HCC) 06/04/2024 11:00 AM CDT [facility] [place] [place] [address] [place] [address] Manny Kulkarni M.D. Roedel, Renae L, R.N. 06/04/2024 9:58 AM CDT - 06/04/2024 11:59 PM CDT Hospital Encounter Department of Radiology, [facility], in [place], [place] [address] [place] [address] Manny Kulkarni M.D. Pretransplant Recipient Evaluation Exam; Chronic Kidney Disease Stage 4 Glomerular Filtration Rate 15-29 (HCC) Discharge Disposition: Home or Self Care 06/04/2024 8:30 AM CDT [facility] [place], [place] [address] [place] [address] Nisha Mccartney M.D. Pretransplant Recipient Evaluation Exam; Chronic Kidney Disease Stage 4 Glomerular Filtration Rate 15-29 (HCC) from Last 3 Months Immunizations Immunization Administration Dates Next Due H1N1 All Forms 02/09/2009 H1N1 Inj 02/09/2009 HZV (ZOSTAVAX) 04/26/2015 HepA Adult 07/24/2023 HepA, Unspecified 07/27/2023,01/25/2023 HepB Adult 04/08/2023, 4,08/20/2001,2000,09/22/1999 Influenza TIV (IM) 12/02/2023, 8,11/12/2015,2014,11/01/2012,11/21/2011,11/20/2011,1 ,11/11/2009,11/15/2008, 007 Influenza, Injectable, Quadrivalent 10/13,11/05/2017,11/03/2016,2015 Influenza, Quadrivalent, Adj uvanted, Preservative Free 11/06/2022,10/31/2021,11/21/2020,2019 Influenza, Seasonal, Injectable 11/06/19 18,11/11/2014,11/01/2012,2011 PCV13 12/25/2019 PCV20 10/06/2021 RSV: respiratory syncytial v irus (AREXVY) recombinant vaccine 12/09/2022 RZV (SHINGRIX) 03/19/2023,01/18/2023 Td (Adult), adsorbed 05/28/2018 Td, (Adult) Unspecified 04/11/1998 Tdap 01/07/2008 influenza trivalent vaccine (6 months and older)(PF) 11/29/2010 influenza vaccine quad (FLUZONE/FLUARIX) (6 months and older)(PF) 11/03/2019,11/21/2013,02/09/2009 Family History Medical History Relation Name Comments Breast cancer Sister Tresa Relation Name Status Comments Sister Tresa Alive Social History Tobacco Use Types Packs/Day Years Used Date Smoking Tobacco: Never Smokeless Tobacco: Never Tobacco Cessation:Counseling Given: Not Answered [facility] Utilities Answer Date Recorded In the past 12 months has th e electric, gas, oil, or water company [...] your living situation today? I have a [facility] place to live 05/30/2024 Comments Unknown Sex and Gender Information Value Date Recorded Sex Assigned at Female 12/26/2022 11:25 AM COMPUTER APPLICATIONS ENGINEER Legal Sex Female 9:53 AM CDT Gender Identity Female 12/26/2022 11:25 AM COMPUTER APPLICATIONS ENGINEER Sexual Orientation Straight 12/26/2022 11 :25 AM COMPUTER APPLICATIONS ENGINEER Last Filed Vital Signs Vital Sign Reading Time Taken Comments Blood Pressure 129/84 06/05/2024 2:18 PM CDT Pulse 50 06/05/2024 2:18 PM CDT Temperature 36.7 C (98 F) 06/05/2024 2:18 PM CDT Respiratory Rate 18 11/14/2023 5:40 AM CDT Oxygen Saturation 96% 06/05/2024 2:18 PM CDT Inhaled Oxygen Concentration - - Weight 65.6 kg (144 lb 10 oz) 06/04/2024 8:10 AM CDT Height 161.6 cm (5' 3.62) 06/04/2024 8:10 AM CD T Body Mass Index 25.12 06/04/2024 8:10 AM CDT Plan of Treatment Health Maintenance Due Date Last Done Comments CT Colonography 1954 Cologuard 1954 Diabetic Office Visit with Foot Exam 1954 Dilated Eye Exam 1954 Mammogram 1954 Urine Albumin 1954 Fall Risk Screen (Annual) 02/12/2024 COVID-19 Vaccine (9 - Moderna risk season) 2024 12/02/2023, 12/03/2022, 08/16/2022, Additional history exists Hemoglobin A1C 12/04/2024 06/04/2024, 10/2024, 10/07/2023, Additional history exists Office Visit for Blood Pressure Check / Re-check 06/05/2025 06/05/2024 Creatinine Level (Kidney Function Test) 07/08/2025 07/08/2024, 06/04/2024, 12/02/2023, Additional history exists Colonoscopy 01/10/2027 01/10/2022 Colorectal Cancer Surveillance 01/10/2027 DTaP,Tdap,and Td Vaccines (3 - Td or Tdap) 05/28/2028 05/28/2018, 01/07/2008, 04/11/1998 Lipid (Cholesterol) Screening 06/04/2029 06/04/2024, 10/07/2023, 01/02/2023, Additional history exists Bone Density Scan (Osteoporosis Screen) Discontinued 09/30/2019 Pneumococcal vaccine (50+ years) Completed 10/06/2021, 12/25/2019 RSV vaccine - (32-36 weeks) or 60+ years Completed 12/09/2022 Zoster Vaccines Completed 03/19/2023, 09/2022, 04/26/2015 Influenza Vaccine Completed 12/02/2023, , 10/31/2021, Additional history exists Depression Screening (Annual PHQ-2) Completed 05/28/2024 Hepatitis C Screening Completed 06/04/2024, 023 HPV Vaccines Aged Out No longer eligi ble based on patient's age to complete this topic IPV Vaccines Aged Out No longer eligi ble based on patient's age to complete this topic Procedures Procedure Name Priority Date/Time Associated Diagnosis Comments ECHO STRESS 2D WITH COLOR, LIMITED DOPPLER AND CONTRAST Routine 06/05/2024 8:59 AM CDT Pretransplant Recipient Evaluation Exam Chronic Kidney Disease Stage 4 Glomerular Filtration Rate 15-29 (HCC) Hypertension Essential Primary DX CHEST AP OR PA AND LATERAL 2 VIEWS RAD - Routine (most inpatients and all outpatients) 06/04/2024 10:08 AM CDT Pretransplant Recipient Evaluation Exam Chronic Kidney Disease Stage 4 Glomerular Filtration Rate 15-29 (HCC) ECG Routine 06/04/2024 9:50 AM CDT Pretransplant Recipient Evaluation Exam Chronic Kidney Disease Stage 4 Glomerular Filtration Rate 15-29 (HCC) MICROSCOPIC MANUAL Routine 06/04/2024 7:50 AM CDT DIPSTICK, U Routine 06/04/2024 7:50 AM CDT PH, U Routine 06/04/2024 7:50 AM CDT OSMOLALITY, U Routine 06/04/2024 7:50 AM CDT URINALYSIS WITH MICROSCOPIC Routine 06/04/2024 7:50 AM CDT Pretransplant Recipient Evaluation Exam Chronic Kidney Disease Stage 4 Glomerular Filtration Rate 15-29 (HCC) BACTERIAL CULTURE, AEROBIC + SUSC, URINE Routine 06/04/2024 7:50 AM CDT Pretransplant Recipient Evaluation Exam Chronic Kidney Disease Stage 4 Glomerular Filtration Rate 15-29 (HCC) Diabetes Mellitus Drug Or Chemical Induced With Chronic Kidney Disease (HCC) HLA CLASS I/II COMBINED CPRA, SERUM Routine 06/04/2024 7:39 AM CDT HLA CLASS II SAB ANTIBODY SCREEN Routine 06/04/2024 7:39 AM CDT Pretransplant Recipient Evaluation Exam Chronic Kidney Disease Stage 4 Glomerular Filtration Rate 15-29 (HCC) HLA CLASS I SAB ANTIBODY SCREEN Routine 06/04/2024 7:39 AM CDT Pretransplant Recipient Evaluation Exam Chronic Kidney Disease Stage 4 Glomerular Filtration Rate 15-29 (HCC) PROTHROMBIN TIME (PT), P Routine 06/04/2024 7:39 AM CDT Pretransplant Recipient Evaluation Exam Chronic Kidney Disease Stage 4 Glomerular Filtration Rate 15-29 (HCC) HEMOGLOBIN A1C, B Routine 06/04/2024 7:3 9 AM CDT Pretransplant Recipient Evaluation Exam Chronic Kidney Disease Stage 4 Glomerular Filtration Rate 15-29 (HCC) Diabetes Mellitus Drug Or Chemical Induced With Chronic Kidney Disease (HCC) TROPONIN T, 5TH GEN, P Routine 06/04/2024 7:39 AM CDT Pretransplant Recipient Evaluation Exam Chronic Kidney Disease Stage 4 Glomerular Filtration Rate 15-29 (HCC) PHOSPHORUS (INORGANIC), S Routine 06/04/2024 7:39 AM CDT Pretransplant Recipient Evaluation Exam Chronic Kidney Disease Stage 4 Glomerular Filtration Rate 15-29 (HCC) PARATHYROID HORMONE (PTH), S Routine 06/04/2024 7:39 AM CDT Pretransplant Recipient Evaluation Exam Chronic Kidney Disease Stage 4 Glomerular Filtration Rate 15-29 (HCC) LIPID PANEL, S Routine 06/04/2024 7:39 AM CDT Pretransplant Recipient Evaluation Exam Chronic Kidney Disease Stage 4 Glomerular Filtration Rate 15-29 (HCC) HEPATIC FUNCTION PANEL, S Routine 06/04/2024 7:39 AM CDT Pretransplant Recipient Evaluation Exam Chronic Kidney Disease Stage 4 Glomerular Filtration Rate 15-29 (HCC) GLUCOSE, RANDOM, S/P Routine 06/04/2024 7:39 AM CDT Pretransplant Recipient Evaluation Exam Chronic Kidney Disease Stage 4 Glomerular Filtration Rate 15-29 (HCC) Diabetes Mellitus Drug Or Chemical Induced With Chronic Kidney Disease (HCC) CALCIUM, TOT, S/P Routine 06/04/2024 7:3 9 AM CDT Pretransplant Recipient Evaluation Exam Chronic Kidney Disease Stage 4 Glomerular Filtration Rate 15-29 (HCC) CREATININE WITH EGFR, S/P Routine 06/04/2024 7:39 AM CDT Pretransplant Recipient Evaluation Exam Chronic Kidney Disease Stage 4 Glomerular Filtration Rate 15-29 (HCC) BUN (BLOOD UREA NITROGEN), S/P Routine 06/04/2024 7:39 AM CDT Pretransplant Recipient Evaluation Exam Chronic Kidney Disease Stage 4 Glomerular Filtration Rate 15-29 (HCC) CBC WITH DIFFERENTIAL, B Routine 06/04/2024 7:39 AM CDT Pretransplant Recipient Evaluation Exam Chronic Kidney Disease Stage 4 Glomerular Filtration Rate 15-29 (HCC) QUANTIFERON-TB GOLD PLUS, B Routine 06/04/2024 7:39 AM CDT Pretransplant Recipient Evaluation Exam Chronic Kidney Disease Stage 4 Glomerular Filtration Rate 15-29 (HCC) HIV-1/-2 AG AND AB SCREEN, PLASMA Routine 06/04/2024 7:39 AM CDT Pretransplant Recipient Evaluation Exam Chronic Kidney Disease Stage 4 Glomerular Filtration Rate 15-29 (HCC) Human Immunodeficiency Virus Screening HEPATITIS A IGM AB Routine 06/04/2024 7:39 AM CDT Pretransplant Recipient Evaluation Exam Chronic Kidney Disease Stage 4 Glomerular Filtration Rate 15-29 (HCC) ELECTROLYTE (CHEM 4) PANEL, S/P Routine 06/04/2024 7:38 AM CDT Pretransplant Recipient Evaluation Exam Chronic Kidney Disease Stage 4 Glomerular Filtration Rate 15-29 (HCC) HCV AB SCRN W/REFLEX TO HCV PCR, S Routine 06/04/2024 7:38 AM CDT Pretransplant Recipient Evaluation Exam Chronic Kidney Disease Stage 4 Glomerular Filtration Rate 15-29 (HCC) HBS ANTIGEN SCRN, S Routine 06/04/2024 7:38 AM CDT Pretransplant Recipient Evaluation Exam Chronic Kidney Disease Stage 4 Glomerular Filtration Rate 15-29 (HCC) HBC TOTAL AB SCRN, S Routine 06/04/2024 7:38 AM CDT Pretransplant Recipient Evaluation Exam Chronic Kidney Disease Stage 4 Glomerular Filtration Rate 15-29 (HCC) HBS ANTIBODY SCRN, S Routine 06/04/2024 7:38 AM CDT Pretransplant Recipient Evaluation Exam Chronic Kidney Disease Stage 4 Glomerular Filtration Rate 15-29 (HCC) HEPATITIS A VIRUS TOTAL AB, S Routine 06/04/2024 7:38 AM CDT Pretransplant Recipient Evaluation Exam Chronic Kidney Disease Stage 4 Glomerular Filtration Rate 15-29 (HCC) from Last 3 Months Results * ECHO STRESS 2D WITH COLOR, LIMITED DOPPLER AND CONTRAST (06/05/2024 8:59 AM CDT) Pathologist [facility] Ejection Fraction 64 MC CV EIMS Mid-Ascending Aorta 37 MC CV EIMS LV Mass Index 106 MC CV EIMS LV End-Diastolic Diameter 44 MC CV EIMS LV End-Systolic Diameter 30 MC CV EIMS LV End-Diastolic Volume 92 MC CV EIMS LV End-Systolic Volume 33 MC CV EIMS MV E Velocity 0.4 MC CV EIMS MV A Velocity 0.7 MC CV EIMS MV E/A 0.57 MC CV EIMS MV e' Velocity Medial 0.04 MC CV EIMS MV E/e' Medial 10 MC CV EIMS LV Interventricular Septal Wall Thickness 11 MC CV EIMS LV Posterior Wall Thickness 12 MC CV EIMS LV Relative Wall Thickness 55 MC CV EIMS TR Vmax 2 MC CV EIMS Estimated RA Pressure (Echo RAP) 5 MC CV EIMS RV Systolic Pressure (with Echo RAP) 21 MC CV EIMS WMSI At Rest 1 MC CV EIMS WMSI At Peak Stress 1 MC CV EIMS Anatomical Region Laterality Modality Echocardiography 06/05/2024 7:27 AM CDT Impressions 06/05/2024 10:04 AM CDT STRESS TEST:Dobutamine was infused from 5 mcg/kg/min to 40.0 mcg/kg/min. A dose of 0.5 mg of atropine was administered. A peak heart rate of 99 BPM was achieved (66% age-predicted maximal HR). The test was terminated due to hypertension. The patient developed palpitations. The baseline ECG demonstrated sinus rhythm. With stress, there were no S-T changes. The stress ECG was negative for ischemia. Please see Nursing Notes for additional information. REST IMAGES:Intravenous Definity ultrasound enhancement agent(s) administered to enhance endocardial border definition. LEFT VENTRICLE:Normal left ventricular chamber size. Normal left ventricular wall thickness. Calculated 2-D biplane volumetric left ventricular ejection fraction of 64% with the use of ultrasound enhancing agent. Grade 1/3 left ventricular diastolic dysfunction, consistent with low to normal left ventricular filling pressure at rest. No regional wall motion abnormalities. RIGHT VENTRICLE:Normal right ventricular chamber size. Normal right ventricular systolic function. Estimated right ventricular systolic pressure 21 mmHg (right atrial pressure of 5 mmHg). ATRIA:Normal left atrial size. Normal right atrial size. CARDIAC VALVES:Trileaflet aortic valve. Sclerotic aortic valve. No aortic valve regurgitation. Mildly calcified mitral annulus. Mildly thickened mitral valve. Trivial mitral valve regurgitation. Pulmonary valve not well visualized. Mild pulmonary valve regurgitation. Normal tricuspid valve. Trivial tricuspid valve regurgitation. OTHER ECHO FINDINGS:Normal mid ascending aorta diameter of 37 mm. No pericardial effusion. For the complete report, see the Order-Level Documents. Narrative 06/05/2024 10:04 AM CDT For the complete report, see the Order-Level Documents. Hemodynamics Heart Rate: 47 BPM Blood Pressure: 162 / 92 mmHg ECG: Sinus rhythm, Badycaria Final Impressions 1. STRESS IMPRESSIONS: 2. Dobutamine stress echocardiogram negative for myocardial ischemia. 3. The test was terminated due to hypertension (her blood pressure marcelle to a peak of 239/111 mmHg). 4. A peak heart rate of 99 BPM was achieved (66% age-predicted maximal HR). 5. Ejection fraction response from 65% at rest to 75% at peak stress, left ventricular end-systolic volume decreased with stress . No regional wall motion abnormalities with stress. 6. The stress ECG was negative for ischemia. 7. While her limited peak heart rate could decrease the sensitivity of this test for detecting myocardial ischemia, because of her hypertensive response she had an adequate rate-pressure product of 22,869. 8. REST IMPRESSIONS: 9. Resting blood pressure 162/92 mmHg. 10. Normal left ventricular chamber size. 11. Calculated 2-D biplane volumetric left ventricular ejection fraction of 64% with the use of ultrasound enhancing agent. 12. Grade 1/3 left ventricular diastolic dysfunction, consistent with low to normal left ventricular filling pressure at rest. 13. Normal right ventricular chamber size with normal right ventricular systolic function. 14. Estimated right ventricular systolic pressure 21 mmHg (right atrial pressure of 5 mmHg). 15. No hemodynamically significant valvular heart disease. 16. No pericardial effusion. 17. There are no significant rest or stress changes compared to the report of her pharmacologic stress echocardiography study performed 01/04/2023. Procedure Note Leroy Casas M.D. - 06/05/2024 For the complete report, see the Order-Level Documents. Hemodynamics Heart Rate: 47 BPM Blood Pressure: 162 / 92 mmHg ECG: Sinus rhythm, Badycaria Final Impressions 1. STRESS IMPRESSIONS: 2. Dobutamine stress echocardiogram negative for myocardial ischemia. 3. The test was terminated due to hypertension (her blood pressure marcelle toa peak of 239/111 mmHg). 4. A peak heart rate of 99 BPM was achieved (66% age-predicted maximalHR). 5. Ejection fraction response from 65% at rest to 75% at peak stress, leftventricular end-systolic volume decreased with stress . No regional wallmotion abnormalities with stress. 6. The stress ECG was negative for ischemia. 7. While her limited peak heart rate could decrease the sensitivity ofthis test for detecting myocardial ischemia, because of her hypertensiveresponse she had an adequate rate-pressure product of 22,869. 8. REST IMPRESSIONS: 9. Resting blood pressure 162/92 mmHg. 10. Normal left ventricular chamber size. 11. Calculated 2-D biplane volumetric left ventricular ejection fractionof 64% with the use of ultrasound enhancing agent. 12. Grade 1/3 left ventricular diastolic dysfunction, consistent with lowto normal left ventricular filling pressure at rest. 13. Normal right ventricular chamber size with normal right ventricularsystolic function. 14. Estimated right ventricular systolic pressure 21 mmHg (right atrialpressure of 5 mmHg). 15. No hemodynamically significant valvular heart disease. 16. No pericardial effusion. 17. There are no significant rest or stress changes compared to thereport of her pharmacologic stress echocardiography study dsmacsnny19/24/2023. Findings STRESS TEST:Dobutamine was infused from 5 mcg/kg/min to 40.0 mcg/kg/min. Adose of 0.5 mg of atropine was administered. A peak heart rate of 99 BPMwas achieved (66% age-predicted maximal HR). The test was terminated dueto hypertension. The patient developed palpitations. The baseline ECGdemonstrated sinus rhythm. With stress, there were no S-T changes. Thestress ECG was negative for ischemia. Please see Nursing Notes foradditional information. REST IMAGES:Intravenous Definity ultrasound enhancement agent(s)administered to enhance endocardial border definition. LEFT VENTRICLE:Normal left ventricular chamber size. Normal leftventricular wall thickness. Calculated 2-D biplane volumetric leftventricular ejection fraction of 64% with the use of ultrasound enhancingagent. Grade 1/3 left ventricular diastolic dysfunction, consistent withlow to normal left ventricular filling pressure at rest. No regional wallmotion abnormalities. RIGHT VENTRICLE:Normal right ventricular chamber size. Normal rightventricular systolic function. Estimated right ventricular systolicpressure 21 mmHg (right atrial pressure of 5 mmHg). ATRIA:Normal left atrial size. Normal right atrial size. CARDIAC VALVES:Trileaflet aortic valve. Sclerotic aortic valve. No aorticvalve regurgitation. Mildly calcified mitral annulus. Mildly thickenedmitral valve. Trivial mitral valve regurgitation. Pulmonary valve not wellvisualized. Mild pulmonary valve regurgitation. Normal tricuspid valve.Trivial tricuspid valve regurgitation. OTHER ECHO FINDINGS:Normal mid ascending aorta diameter of 37 mm. Nopericardial effusion. For the complete report, see the Order-Level Documents. us Manny Kulkarni M.D. CV ECHO PROCEDURES Final Result * DX Chest AP or PA and Lateral 2 Views (06/04/2024 10:08 AM CDT) Anatomical Region Laterality Modality Chest, Thoracic RST LOS, Tho racic ARZ LOS, Thoracic FLA LOS N/A Digital Radiography Impressions 06/04/2024 10:24 AM CDT Compared to 01/02/2023 described nodular opacity in the lateral radiograph is no longer visualized. Borderline cardiac silhouette. Tortuous thoracic aorta. Degenerative changes of the spine. Postsurgical changes in left breast. Narrative 06/04/2024 10:24 AM CDT EXAM: DX CHEST AP OR PA AND LATERAL 2 VIEWS Procedure Note Kian Ramos M.B.B.S., Tim. - 06/04/2024 EXAM: DX CHEST AP OR PA AND LATERAL 2 VIEWS IMPRESSION: Compared to 01/02/2023 described nodular opacity in the lateral radiographis no longer visualized. Borderline cardiac silhouette. Tortuous thoracicaorta. Degenerative changes of the spine. Postsurgical changes in leftbreast. Manny Kulkarni M.D. IMG DIAGNOSTIC IMAGING PROCEDUR ES Final Result * ECG 12 Lead (06/04/2024 9:50 AM CDT) Ventricular Rate ECG/Min 54 BPM MUSE MA Interval 164 ms MUSE QRSD Interval 88 ms MUSE QT Interval 486 ms MUSE QTC Interval 460 ms MUSE P [place] -14 degrees MUSE R [place] -8 degrees MUSE T Wave [place] 19 degrees MUSE 06/04/2024 9:50 AM CDT 06/04/2024 9:58 AM CDT Impressions MUSE - 06/04/2024 9:58 AM CDT Sinus bradycardia Low voltage QRS Low anterior forces Nonspecific T wave abnormality When compared with ECG of 02-Jan-2023 07:23, Premature ventricular complexes are no longer present Reviewed by JEANMARIE Bailey Narrative Procedure Note Josue Goldstein M.D., Ph.D. - 06/04/2024 IMPRESSION: Sinus bradycardia Low voltage QRS Low anterior forces Nonspecific T wave abnormality When compared with ECG of 02-Jan-2023 07:23, Premature ventricular complexes are no longer present Reviewed by JEANMARIE Bailey Manny Kulkarni M.D. ECG ORDERABLES Final Result MUSE NA * (ABNORMAL) Dipstick, Urine (06/04/2024 7:50 AM CDT) Hemoglobin, QL, U Trace(A) Negative 06/04/2024 8:52 AM CDT DTL Leukocyte Esterase, U Negative Negative 06/04/2024 8:52 AM CDT DTL Nitrite, U Negative Negative 06/04/2024 8:52 AM CDT DTL Ketone, U Negative Negative mg/dL 06/04/2024 8:52 AM CDT DTL Glucose, U Negative Negative mg/dL 06/04/2024 8:52 AM CDT DTL Urine 06/04/2024 7:50 AM CDT 06/04/2024 8:17 AM CDT us Manny Kulkarni M.D. LAB URINE ORDERABLES Final Resu Performing Organization Address [facility] de Phone Number [facility] [address] [place] [address], [facility] [address] [place] [address] * Microscopic Manual (06/04/2024 7:50 AM CDT) Microscopy Normal 06/04/2024 10:05 AM CDT DTL RBC <3 <3 /hpf 06/04/2024 10:05 AM CDT DTL WBC 1-3 /hpf 06/04/2024 10:05 AM CDT DTL Comment: ----REFERENCE VALUE---- <4 (Males) <11 (Females) Squamous Epithelial Cells, U 1-3 /hpf 06/04/2024 10:05 AM CDT DT Urine 06/04/2024 7:50 AM CDT 06/04/2024 8:53 AM CDT us Manny Kulkarni M.D. LAB URINE ORDERABLES Final Resu Performing Organization Address [facility] de Phone Number [facility] [address] [place] [address], [facility] [place] [address] [place] [address] * Bacterial Culture, Aerobic + Susceptibility, Urine (06/04/2024 7:50 AM CDT) Urine Culture Urogenital microbiota, susceptibilities not performed per laboratory criteria. 06/05/2024 7:25 AM CDT DTL Urine (Urine, Midstream) 06/04/2024 7:50 AM CDT 06/04/2024 8:51 AM CDT Comment:Specimen Source Site : Urine us Manny Kulkarni M.D. LAB MICROBIOLOGY - GENERAL ORDE RABLES Final Result Performing Organization Address [facility] Co de Phone Number [facility] [address] [place], [place] [address] [place] [address] 200 [place] [address] * pH, Urine (06/04/2024 7:50 AM CDT) pH, U 6.6 4.5 - 8.0 06/04/2024 9:2 9 AM CDT DTL Urine 06/04/2024 7:50 AM CDT 06/04/2024 8:17 AM CDT us Manny Kulkarni M.D. LAB URINE ORDERABLES Final Resu lt Performing Organization Address City/[facility] Co de Phone Number [facility] [address] [place], [place] [id number] [place] [address] [address] [place] [address] * Osmolality, Urine (06/04/2024 7:50 AM CDT) Pathologist [facility] Osmolality, U 249 150 - 1150 mOsm/kg 06/04/2024 9:29 AM CDT DT Urine 06/04/2024 7:50 AM CDT 06/04/2024 8:17 AM CDT us Manny Kulkarni M.D. LAB URINE ORDERABLES Final Resu lt Performing Organization Address City/[facility]/ZIP Co de Phone Number [facility] [address] [place] [address], [facility] [place] [facility] [address] [place] [address] * (ABNORMAL) Urinalysis, with Microscopic: Urine, Midstream (06/04/2024 7:50 AM CDT) Source Urine, Urine, Midstream 06/04/2024 8:17 AM CDT DTL Color, U Yellow 06/04/2024 8:17 AM CDT DTL Clarity, U Clear 06/04/2024 8:17 AM CDT DTL Protein, U 202(H) <26 mg/dL 06/04/2024 9:50 AM CDT DTL Protein/Osmol ality 8.11(H) <0.42 ratio 06/04/2024 9:50 AM CDT DTL Predicted 24 HR Protein, U 4476(H) <229 mg/24 h 06/04/2024 9:50 AM CDT DTL Predicted Range 1106-96832 mg/24 h 06/04/2024 9:50 AM CDT DTL Urine (Urine, Midstream) 06/04/2024 7:50 AM CDT 06/04/2024 8:17 AM CDT us Manny Kulkarni M.D. LAB URINE ORDERABLES Final Resu lt [facility] [address] DTL [facility] [address] [place] [address] * HLA Class I/II Combined cPRA, Serum (06/04/2024 7:39 AM CDT) Class I/II Combined cPRA 77.53 Not Applicable 06/05/2024 9:53 AM CDT DBB8 Comment: A portion of the testing process was performed at [facility] site [id number] ----ADDITIONAL INFORMATION---- Calculated PRA (cPRA) is the percentage of donors expected to have HLA antigens listed as unacceptable for a candidate on the waiting list. Unacceptable antigens include serologic equivalents that have a normalized Mean Fluorescence Intensity (MFI) >= 2000 and antigens that demonstrate Prozone Phenomenon. The cPRA is calculated based on the HLA frequencies published by UNOS/OPTN listed here: http://optn.transplant.hrsa.gov CLIA: [id number] CLIA Top Cutter: HARRIET HERNÁNDEZ,Ph.D. Combined cPRA Specificities see below 06/05/2024 9:53 AM CDT DBB8 Comment:B13 B44 B45 B47 B49 B50 B60 B61 DQ2 DR12 DR17 DR18 DR7 DR9 DRw3*01 DRw3*03 Blood 06/04/2024 7:39 AM CDT 06/04/2024 8:53 AM CDT Manny Kulkarni M.D. LAB HLA ORDERABLES Final Result Performing Organization Address [facility] Co de Phone Number [facility] [address] [place] [address], [facility] DBB8 [facility] [address] [place] [address] * HIV-1/-2 Ag and Ab Screen, Plasma (06/04/2024 7:39 AM CDT) Pathologist [facility] HIV-1/-2 Ag and Ab Screen, P Negative Negative 06/04/2024 1:38 PM CDT [facility] Comment: Negative result does not rule out HIV infection. If exposure to HIV infection occurred <14 days ago, contact the laboratory to request addition of HIV-1/HIV-2 RNA detection, Plasma (HIP12). Blood (Blood, Venous) 06/04/2024 7:39 AM CDT 06/04/2024 11:34 AM CDT us Manny Kulkarni M.D. LAB MICROBIOLOGY - BLOOD ORDERA BLES Final Result Performing Organization Address [facility] Co de Phone Number [facility] [address] [place] [address] [facility] [address] [place] [address] * (ABNORMAL) Lipid Panel (06/04/2024 7:39 AM CDT) Pathologist [facility] Triglycerides 278(H) mg/dL 06/04/2024 8:40 AM CDT DTL Comment: ----REFERENCE VALUE---- Normal: <150 mg/dL Borderline High: 150-199 mg/dL High: 200-499 mg/dL Very High: > or =500 mg/dL Cholesterol, Total 144 mg/dL 2024 8:40 AM CDT DTL Comment: ----REFERENCE VALUE---- Desirable: < 200 mg/dL Borderline High: 200 - 239 mg/dL High: > or = 240 mg/dL Cholesterol, LDL, Calculated 69 mg/dL 06/04/2024 8:40 AM CDT DTL Comment: ----REFERENCE VALUE---- Desirable: <100 mg/dL Above Desirable: 100-129 mg/dL Borderline High: 130-159 mg/dL High: 160-189 mg/dL Very High: >=190 mg/dL ----ADDITIONAL INFORMATION---- LDL cholesterol calculated using the Rouse/NIH equation. Cholesterol, HDL, S 30(L) >=50 mg/dL 06/04/2024 8:40 AM CDT DTL Cholesterol, Non-HDL, Calculated 114 mg/dL 06/04/2024 8:40 AM CDT DTL Comment: ----REFERENCE VALUE---- Desirable: <130 mg/dL Above Desirable: 130-159 mg/dL Borderline High: 160-189 mg/dL High: 190-219 mg/dL Very High: > or =220 mg/dL Fasting (8 HR or more) Yes 06/04/2024 7:39 AM CDT DTL Blood (Blood, Venous) 06/04/2024 7:39 AM CDT 06/04/2024 8:11 AM CDT Manny Kulkarni M.D. LAB BLOOD ADD-ON Final Result [facility] [address] [facility] [address] [place] [address] * Hepatic Function Panel (06/04/2024 7:39 AM CDT) Bilirubin, Total, S 0.7 0.0 - 1.2 mg/dL 06/04/2024 8:40 AM CDT DTL Bilirubin, Direct, S <0.2 0.0 - 0.3 mg/dL 06/04/2024 8:40 AM CDT DTL Aspartate Aminotransferase (AST), S 22 8 - 43 U/L 06/04/2024 8:40 AM CDT DTL Alanine Aminotransferase (ALT), S 31 7 - 45 U/L 06/04/2024 8:40 AM CDT DTL Alkaline Phosphatase, S 73 35 - 104 U/L 06/04/2024 8:40 AM CDT DTL Albumin, S 4.1 3.5 - 5.0 g/dL 06/04/2024 8:40 AM CDT DTL Protein, Total, S 6.5 6.3 - 7.9 g/dL 06/04/2024 8:40 AM CDT DTL Blood (Blood, Venous) 06/04/2024 7:39 AM CDT 06/04/2024 8:11 AM CDT us Manny Kulkarni M.D. LAB BLOOD ADD-ON Final Result [facility] [address] [place] [address], [facility] [address] [place] [address] * QuantiFERON-Tb Gold Plus, Blood (06/04/2024 7:39 AM CDT) [facility] QuantiFERON-TB Gold Plus Result Negative Negative 06/05/2024 9:34 AM CDT [facility] Comment: No interferon-gamma response to M. tuberculosis antigens was detected. Latent infection with M. tuberculosis is unlikely. A single negative result does not exclude infection with M. tuberculosis. In patients at high risk for M.tuberculosis infection, a second test should be considered in accordance with the 2017 ATS/IDSA/CDC Clinical Practice Guidelines for Diagnosis of Tuberculosis in Adults and Children [Lewinsohn DM et. al. Clin. Infect. Dis. 2017;64(2):111-115]. The reference range for the 'TB1 Ag minus Nil Result' and 'TB2 Ag minus Nil Result' is an Interferon-gamma level <0.35 IU/mL. TB1 Ag minus Nil Result 0.01 IU/mL 06/05/2024 9:34 AM CDT SDSC TB2 Ag minus Nil Result 0.00 IU/mL 06/05/2024 9:34 AM CDT [facility]SC Mitogen minus Nil Result 9.98 IU/mL 06/05/2024 9:34 AM CDT [facility] Nil Result 0.02 IU/mL 06/05/2024 9:34 AM CDT [facility] Blood (Blood, Venous) 06/04/2024 7:39 AM CDT 06/04/2024 9:24 AM CDT Narrative [facility] - 06/05/2024 9:34 AM CDT Specimen Information: Specimen ID: [id number] Specimen Type: Blood Specimen Collection Start Date: 06/04/2024 7:39 AM Specimen Received Date: 06/04/2024 9:24 AM Specimen ID: [id number] Specimen Type: Blood Specimen Collection Start Date: 06/04/2024 7:39 AM Specimen Received Date: 06/04/2024 9:24 AM Specimen ID: [id number] Specimen Type: Blood Specimen Collection Start Date: 06/04/2024 7:39 AM Specimen Received Date: 06/04/2024 9:24 AM Specimen ID: [id number] Specimen Type: Blood Specimen Collection Start Date: 06/04/2024 7:39 AM Specimen Received Date: 06/04/2024 9:24 AM Manny Kulkarni M.D. LAB MICROBIOLOGY - BLOOD ORDERA BLES Final Result [facility] [address] [place] [address] [facility] [address] [place] [address] * HLA Class II SAB Antibody Screen (06/04/2024 7:39 AM CDT) [facility] Class II SAB Overall Result Positive Not Applicable 06/05/2024 8:18 AM CDT DBB8 Comment: A portion of the testing process was performed at [facility] site [id number] Class II SAB >=5000 MFI see below 06/05/2024 8:18 AM CDT DBB8 Comment: DR:7 9 12 DRw:3*01 3*03 DQ:2 Class II SAB 1684-9696 MFI see below 06/05/2024 8:18 AM CDT DBB8 Comment:DR:17 18 Class II SAB 500-1999 MFI see below 06/05/2024 8:18 AM CDT DBB8 Comment: DR:9 13 14 DQ:5 DP:03:01 06:01 09:01 14:01 17:01 20:01 SAB DRB1 Specificity see below 06/05/2024 8:18 AM CDT DBB8 Comment: 7(07:01)[40553], 9(09:01)[69651], 12(12:01)[50874], 12(12:02)[11562], 17(03:01)[2567], 18(03:02)[2399], 9(09:02)[1757], 13(13:01)[1152], 14(14:02)[535] Format: Serologic Eq.(DRB1 Mol. Allele)[Normalized MFI] NOTE: Data is displayed in descending order by Mean Fluorescence Intensity (MFI). Serologic equivalents can be displayed multiple times for different molecular alleles. SAB [id number] Specificity see below 06/05/2024 8:18 AM CDT DBB8 Comment: 52(03:01)[25623], 52(01:01)[67190] Format: Serologic Eq.(MSD927 Mol. [place]lele)[Normalized MFI] NOTE: Data is displayed in descending order by Mean Fluorescence Intensity (MFI). Serologic equivalents can be displayed multiple times for different molecular alleles. SAB DQB1 Specificity see below 06/05/2024 8:18 AM CDT DBB8 Comment: 2(A*05:01;B*02:01)[77246], 2(A*03:01;B*02:01)[9822], 2(A*04:01;B*02:01)[3703], 2(A*02:01;B*02:02)[6391], 2(A*02:01;B*02:01)[3316], 5(A*01:01;B*05:01)[988] Format: Serologic Eq.(DQA1;DQB1 Mol. [place]lele)[Normalized MFI] NOTE: Data is displayed in descending order by Mean Fluorescence Intensity (MFI). Serologic equivalents can be displayed multiple times for different molecular alleles. SAB DPB1 Specificity see below 06/05/2024 8:18 AM CDT DBB8 Comment: 6(A*01:03;B*06:01)[1903], 9(A*02:01;B*09:01)[1849], 3(A*01:05;B*03:01)[1724], 20(A*03:01;B*20:01)[1713], 3(A*01:03;B*03:01)[1691], 14(A*02:01;B*14:01)[1535], 17(A*02:01;B*17:01)[1498], 3(A*02:01;B*03:01)[1493], 6(A*02:01;B*06:01)[1470] Format: Serologic Eq.(DPA1;DPB1 Mol. Allele)[Normalized MFI] NOTE: Data is displayed in descending order by Mean Fluorescence Intensity (MFI). Serologic equivalents can be displayed multiple times for different molecular alleles. ----ADDITIONAL INFORMATION---- Method: Luminex Flow Cytometry CLIA: [id number] CLIA Top Cutter: HARRIET HERNÁNDEZ,Ph.D. Blood (Blood, Venous) 06/04/2024 7:39 AM CDT 06/04/2024 8:53 AM CDT Manny Kulkarni M.D. LAB HLA ORDERABLES Final Result [facility] [address] [place] [address], [facility] DBB8 [facility] [address] [place] [address] * HLA Class I SAB Antibody Screen (06/04/2024 7:39 AM CDT) [facility] Signature Class I SAB Overall Result Positive Not Applicable 06/05/2024 8:10 AM CDT DBB8 Comment: A portion of the testing process was performed at [facility] site [id number] Class I SAB >=5000 MFI see below 06/05/2024 8:10 AM CDT DBB8 Comment:B:13 49 Class I SAB 0931-4051 MFI see below 06/05/2024 8:10 AM CDT DBB8 Comment:B:44 61 45 60 47 50 Class I SAB 500-1998 MFI see below 06/05/2024 8:10 AM CDT DBB8 Comment:B:41 7 27 81 48 SAB A Specificity NONE 06/05/2024 8:10 AM CDT DBB8 SAB B Specificity see below 06/05/2024 8:10 AM CDT DBB8 Comment: 13(13:02)[57382], 13(13:01)[82327], 49(49:01)[5433], 44(44:03)[4713], 61(40:06)[3811], 44(44:02)[3702], 61(40:02)[3645], 45(45:01)[3209], 60(40:01)[2923], 47(47:01)[1], 50(50:01)[2054], 41(41:01)[1887], 7(07:02)[688], 27(27:05)[687], 81(81:01)[606], 27(27:08)[605], 48(48:01)[517] Format: Serologic Eq.(B Mol. Allele)[Normalized MFI] NOTE: Data is displayed in descending order by Mean Fluorescence Intensity (MFI). Serologic equivalents can be displayed multiple times for different molecular alleles. SAB C Specificity NONE 06/05/2024 8:10 AM CDT DBB8 Comment: ----ADDITIONAL INFORMATION---- Method: Luminex Flow Cytometry CLIA: [id number] CLIA Top Cutter: HARRIET HERNÁNDEZ,Ph.D. Blood (Blood, Venous) 06/04/2024 7:39 AM CDT 06/04/2024 8:53 AM CDT us Manny Kulkarni M.D. LAB HLA ORDERABLES Final Result [facility] [address] [place] [address], [facility] DBB8 [facility] [address] [place] [address] * Hepatitis A IgM Ab, Serum (06/04/2024 7:39 AM CDT) Pathologist [facility] Hepatitis A IgM Ab, S Negative Negative 06/04/2024 12:32 PM CDT [facility] Comment: This result does not exclude the possibility of recent exposure to hepatitis A virus. Antibody level during early infection stage may be below the limit of detection of the assay. Consumption of high-dose biotin supplement within 12 hours of blood collection for this test can cause false-negative results. Blood (Blood, Venous) 06/04/2024 7:39 AM CDT 06/04/2024 10:07 AM CDT Manny Kulkarni M.D. LAB MICROBIOLOGY - BLOOD ORDERA BLES Final Result Performing Organization Address [facility] Co de Phone Number [facility] [address] [place] [address] [facility] [address] [place] [address] * Prothrombin Time (PT) (06/04/2024 7:39 AM CDT) [facility] Prothrombin Time, P 11.3 9.4 - 12.5 sec 06/04/2024 8:34 AM CDT DT INR 1.0 0.9 - 1.1 06/04/2024 8:34 AM CDT DT Comment: ----ADDITIONAL INFORMATION---- Standard intensity warfarin therapeutic range: 2.0 to 3.0 High intensity warfarin therapeutic range: 2.5 to 3.5 Blood (Blood, Venous) 06/04/2024 7:39 AM CDT 06/04/2024 7:56 AM CDT Manny Kulkarni M.D. LAB BLOOD ADD-ON Final Result Performing Organization Address City/[facility]/ZIP Co de Phone Number [facility] [address] [place] [address], [facility] DTL [facility] [address] [place] [address] * (ABNORMAL) CBC with Differential, Blood (06/04/2024 7:39 AM CDT) Hemoglobin 11.7 11.6 - 15.0 g/dL 06/04/2024 8:04 AM CDT DTL Hematocrit 35.4(L) 35.5 - 44.9 % 06/04/2024 8:04 AM CDT DTL Erythrocytes 4.02 3.92 - 5.13 x10(12)/L 06/04/2024 8:04 AM CDT DTL MCV 88.1 78.2 - 97.9 fL 06/04/2024 8:04 AM CDT DTL RBC Distrib Width 13.3 12.2 - 16.1 % 06/04/2024 8:04 AM CDT DTL Platelet Count 289 157 - 371 x10(9)/L 06/04/2024 8:04 AM CDT DTL Leukocytes 11.6(H) 3.4 - 9.6 x10(9)/L 06/04/2024 8:04 AM CDT DTL Neutrophils 8.22(H) 1.56 - 6.45 x10(9)/L 06/04/2024 8:04 AM CDT DHPM Lymphocytes 2.20 0.95 - 3.07 x10(9)/L 06/04/2024 8:04 AM CDT DTL Monocytes 0.78 0.26 - 0.81 x10(9)/L 06/04/2024 8:04 AM CDT DTL Eosinophils 0.32 0.03 - 0.48 x10(9)/L 06/04/2024 8:04 AM CDT DTL Basophils 0.06 0.01 - 0.08 x10(9)/L 06/04/2024 8:04 AM CDT DTL Blood (Blood, Venous) 06/04/2024 7:39 AM CDT 06/04/2024 7:56 AM CDT us Manny Kulkarni M.D. LAB BLOOD ADD-ON Final Result [facility] [address] [place] [address] * (ABNORMAL) BUN (Blood Urea Nitrogen) (06/04/2024 7:39 AM CDT) BUN (Blood Urea Nitrogen), S 49(H) 6 - 21 mg/dL 06/04/2024 8:40 AM CDT DTL Blood (Blood, Venous) 06/04/2024 7:39 AM CDT 06/04/2024 8:11 AM CDT Manny Kulkarni M.D. LAB BLOOD ADD-ON Final Result [facility] [address] [place] [address] * (ABNORMAL) Troponin T, 5th Generation (06/04/2024 7:39 AM CDT) Troponin T, 5th gen 66(H) <=10 ng/L 06/04/2024 9:51 AM CDT DTL Blood (Blood, Venous) 06/04/2024 7:39 AM CDT 06/04/2024 8:10 AM CDT Manny Kulkarni M.D. LAB BLOOD ADD-ON Final Result [facility] [address] [place] [address] * (ABNORMAL) Phosphorus Inorganic (06/04/2024 7:39 AM CDT) Phosphorus (Inorganic), S 4.6(H) 2.5 - 4.5 mg/dL 06/04/2024 8:40 AM CDT DTL Blood (Blood, Venous) 06/04/2024 7:39 AM CDT 06/04/2024 8:11 AM CDT us Manny Kulkarni M.D. LAB BLOOD ADD-ON Final Result [facility] [address] [place] [address] * (ABNORMAL) Parathyroid Hormone (PTH) (06/04/2024 7:39 AM CDT) Parathyroid Hormone (PTH), S 99(H) 15 - 65 pg/mL 06/04/2024 8:40 AM CDT DT Blood (Blood, Venous) 06/04/2024 7:39 AM CDT 06/04/2024 8:11 AM CDT Manny Kulkarni M.D. LAB BLOOD ADD-ON Final Result Performing Organization Address [facility] Co de Phone Number [facility] [address] [place] [address] * (ABNORMAL) Hemoglobin A1c (06/04/2024 7:39 AM CDT) Hemoglobin A1c, B 5.7(H) 4.0 - 5.6 % 06/04/2024 8:15 AM CDT DT Comment: Hemoglobin A1c values of 5.7-6.4 percent indicate an increased risk for developing diabetes mellitus. In diabetic patients, HbA1c goals should be discussed with healthcare provider. Blood (Blood, Venous) 06/04/2024 7:39 AM CDT 06/04/2024 7:56 AM CDT Manny Kulkarni M.D. LAB BLOOD ADD-ON Final Result [facility] 200 [place], [place] [id number] [place] [address] [facility] 200 [place] [address] * Glucose, Random (06/04/2024 7:39 AM CDT) Glucose, S 93 70 - 140 mg/dL 06/04/2024 8:40 AM CDT DTL Blood (Blood, Venous) 06/04/2024 7:39 AM CDT 06/04/2024 8:11 AM CDT Manny Kulkarni M.D. LAB BLOOD TROPONIN Final Result [facility] 200 [place] [address] * (ABNORMAL) Creatinine with Estimated GFR (06/04/2024 7:39 AM CDT) Creatinine 4.84(H) 0.59 - 1.04 mg/dL 06/04/2024 8:40 AM CDT DTL Estimated GFR (eGFR) <15(L) >=60 mL/min/BSA 06/04/2024 8:40 AM CDT DTL Comment: Estimated GFR calculated using the 2020 CKD_EPI creatinine equation. Blood (Blood, Venous) 06/04/2024 7:39 AM CDT 06/04/2024 8:11 AM CDT us Manny Kulkarni M.D. LAB BLOOD ADD-ON Final Result [facility] [address] [place], [place] [id number] [place] [address] * Calcium, Total (06/04/2024 7:39 AM CDT) Calcium, Total, S 9.4 8.8 - 10.2 mg/dL 06/04/2024 8:40 AM CDT DTL Blood (Blood, Venous) 06/04/2024 7:39 AM CDT 06/04/2024 8:11 AM CDT Manny Kulkarni M.D. LAB BLOOD ADD-ON Final Result Performing Organization Address [facility] de Phone Number [facility] [address] [place] [address], [facility] [address] [place] [address] * (ABNORMAL) Hepatitis A Virus Total Antibodies (06/04/2024 7:38 AM CDT) Hepatitis A Virus Total Ab, S Positive(A ) 06/04/2024 12:46 PM CDT [facility] Comment: Result indicates that patient had hepatitis A in the past or immunity to hepatitis A from vaccination. For individuals with signs and symptoms of hepatitis, additional testing for HAV-specific IgM antibody is recommended to confirm the presence of acute or recent (less than 6 months) hepatitis A. Consumption of high-dose biotin supplement within 12 hours of blood collection for this test can cause false-positive test results. ----REFERENCE VALUE---- Unvaccinated: Negative Vaccinated: Positive Blood (Blood, Venous) 06/04/2024 7:38 AM CDT 06/04/2024 10:06 AM CDT Manny Kulkarni M.D. LAB MICROBIOLOGY - BLOOD ORDERA BLES Final Result Performing Organization Address City/[facility] Co de Phone Number [facility] [address] [place] [address] [facility] [address] [place] [address] * HBs Antigen Scrn, Serum (06/04/2024 7:38 AM CDT) HBs Antigen Scrn, S Negative Negative 06/04/2024 12:46 PM CDT [facility] Blood (Blood, Venous) 06/04/2024 7:38 AM CDT 06/04/2024 10:06 AM CDT Manny Kulkarni M.D. LAB MICROBIOLOGY - BLOOD ORDERA BLES Final Result Performing Organization Address City/[facility] Co de Phone Number [facility] [address] [place] [address] [facility] [address] [place] [address] * HBc Total Ab Scrn, Serum (06/04/2024 7:38 AM CDT) Pathologist [facility] HBc Total Ab Scrn, S Negative Negative 06/04/2024 12:46 PM CDT [facility] Blood (Blood, Venous) 06/04/2024 7:38 AM CDT 06/04/2024 10:06 AM CDT Manny Kulkarni M.D. LAB MICROBIOLOGY - BLOOD ORDERA BLES Final Result Performing Organization Address [facility] de Phone Number [facility] [address] [place] [address] [facility] [address] [place] [address] * HBs Antibody Scrn, Serum (06/04/2024 7:38 AM CDT) Pathologist [facility] HBs Antibody Scrn, S Positive 06/04/2024 12:46 PM CDT [facility] Comment: Patient is considered to have been exposed to HBV or immune from HBV vaccination. ----REFERENCE VALUE---- Unvaccinated: Negative Vaccinated: Positive HBs Antibody, Quantitative, S 15.3 mIU/mL 06/04/2024 12:46 PM CDT [facility] Comment: ----REFERENCE VALUE---- Unvaccinated: <8.5 mIU/mL Vaccinated: >=11.5 mIU/mL Blood (Blood, Venous) 06/04/2024 7:38 AM CDT 06/04/2024 10:06 AM CDT Manny Kulkarni M.D. LAB MICROBIOLOGY - BLOOD ORDERA BLES Final Result Performing Organization Address City/[facility] Co de Phone Number [facility] [address] [place] [address] [facility] [address] [place] [address] * Electrolyte (Chem 4) Panel (06/04/2024 7:38 AM CDT) Potassium, P 4.6 3.6 - 5.2 mmol/L 06/04/2024 8:09 AM CDT [facility] Sodium, P 139 135 - 145 mmol/L 06/04/2024 8:09 AM CDT [facility] Chloride, P 100 98 - 107 mmol/L 06/04/2024 8:09 AM CDT [facility] Bicarbonate, P 25 22 - 29 mmol/L 06/04/2024 8:09 AM CDT [facility] Anion Gap, P 14 7 - 15 06/04/2024 8:09 AM CDT [facility] Blood (Blood, Venous) 06/04/2024 7:38 AM CDT 06/04/2024 7:47 AM CDT us Manny Kulkarni M.D. LAB BLOOD ADD-ON Final Result Performing Organization Address [facility] Co de Phone Number [facility] 200 [place] [address], [place] [facility] 200 [place] [address] * HCV Ab Scrn w/Reflex to HCV PCR, Serum (06/04/2024 7:38 AM CDT) Pathologist [facility] HCV Ab Screen, S Negative Negative 06/04/2024 12:46 PM CDT [facility] Comment: Consumption of high-dose biotin supplement within 12 hours of blood collection for this test can cause false-negative results. Blood (Blood, Venous) 06/04/2024 7:38 AM CDT 06/04/2024 10:06 AM CDT us Manny Kulkarni M.D. LAB MICROBIOLOGY - BLOOD ORDERA BLES Final Result Performing Organization Address City/[facility]/ZIP Co de Phone Number [facility] [address] [place] [address] [facility] [address] [place] [address] from Last 3 Months Insurance [employer] Advance Directives For more information, please contact: [phone] Documents on File Type Date Recorded Patient Correspondence Clerk Expl anation Advance Directives 08/02/2023 9:27 AM Elías Osuna HCPOA/ADVOCATE/AGENT/R EPRESENTATIVE/SURROGAT E * Full Code (Latest Code Status on File) Date Activated Date Inactivated Comments 10/25/2023 3:15 PM 11/14/2023 12:40 PM Question Answer Comments Full Code: Discussed * Full Code Date Activated Date Inactivated Comments 10/25/2023 12:37 PM 10/25/2023 3:15 PM Question Answer Comments Full Code: Not Discussed Due to: Patient not available Healthcare Agents on File Name Relationship Healthcare Agent Relationshi p Communication Elías Osuna Spouse Health Care Agent María Cox Daughter First Alternate Health Care Agent José Miguel Osuna Son Second Alternate Health Care Agent Care Teams Historic Preservationist Relationship Specialty Start Date End Date Elsewhere, Pcp PCP - General Internal Medicine 01/02/23
--- NOTE | 2024-07-26 11:22 | ED.GENADULT ---
HPI - General Adult General Time Seen by Provider: 11:22 Date Seen: 07/26/24 Chief complaint: Weakness Stated complaint: eye drooping, trouble walking, previous stroke Time Seen by Provider: 07/26/24 11:16 Source: patient, family and RN notes reviewed Mode of arrival: wheelchair Limitations: no limitations History of Present Illness HPI narrative: This 68-year-old female has a history of ischemic stroke with right-sided hemiparesis that has been continuing therapy/rehabilitation. She was hospitalized here in October of 2023. She was initially treated with aspirin and Plavix, there were micro hemorrhages seen on MR imaging per report. She is maintained on 325 mg of Plavix. Yesterday she was noted to have decreased use of her right arm, had been able to open her hand but has decreased use of this, they note everything just seems ?tight?. She has an AFO on that side. She has been having difficulty with transfers, they felt her right eye was drooping more this morning but seems improved. She has had decreased energy and seems tired, no fevers, no focal symptoms for any infection at this time. She has no pain. She comes in with her AFO on her right ankle and a transfer belt on. Family member with her at this time feels her facial drooping of her eye looks better. She denies any acute visual changes at this time. Related Data Home Medications ?Medication ?Instructions ?Recorded ?Confirmed aspirin 325 mg tablet,delayed 325 mg PO DAILY 10/18/23 07/26/24 release atorvastatin 40 mg tablet 80 mg PO DAILY 10/18/23 07/26/24 latanoprost 0.005 % eye drops 1 drp ophthalmic (eye) HS 10/18/23 07/26/24 [id number] 250 mg-dha 90 1 cap PO DAILY 10/18/23 07/26/24 mg-epa 160 [id number]-[id number] capsule (Ocuvite Adult 50 Plus) sitagliptin phosphate 25 mg tablet 25 mg PO DAILY 10/18/23 07/26/24 (Januvia) metoprolol tartrate 25 mg tablet 25 mg PO BID 07/26/24 07/26/24 timolol maleate 0.5 % eye gel 1 drp ophthalmic (eye) BID 07/26/24 07/26/24 forming solution Allergies Allergy/AdvReac Type Severity Reaction Status Date / Time No Known Drug Allergies Allergy Verified 07/26/24 11:40 Review of Systems Status of ROS: Reports: 6 or more systems reviewed and unremarkable except as noted in History and below [facility] Medical History Hyperlipidemia ?E78.5 - Hyperlipidemia, unspecified (ICD-10) History of right breast cancer ?Z85.3 - Personal history of malignant neoplasm of breast (ICD-10) Cerebral aneurysm ?I67.1 - Cerebral aneurysm, nonruptured (ICD-10) JAJA on CPAP ?G47.33 - Obstructive sleep apnea (adult) (pediatric) (ICD-10) History of ischemic stroke ?Z86.73 - Personal history of transient ischemic attack (TIA), and cerebral infarction without residual deficits (ICD-10) CKD stage 5 secondary to hypertension ?I12.0 - Hypertensive chronic kidney disease with stage 5 chronic kidney disease or end stage renal disease (ICD-10) ?N18.5 - Chronic kidney disease, stage 5 (ICD-10) Diabetes ?E11.9 - Type 2 diabetes mellitus without complications (ICD-10) Social History What is your current living situation?: I presently have a place to live Problems where you live: no known problems Problems where you live details: no known problems In the past 12 months, utilities in danger of being shut off: no In past 12 months, lack of transportation kept you from medical appts, meetings, work, or getting things needed for daily living: no In the past 12 mos, have been you worried that your food would run out before you had money to buy more?: never true In the past 12 mos, the food you bought just didn't last and you didn't have money to buy more?: never true Smoking Status: Never smoker Do you use any of these nicotine containing products: None Second hand tobacco smoke exposure: Yes How often do you have a drink containing alcohol: never How often do you have six or more drinks on one occasion: Never AUDIT-C Alcohol total score: 0 Non-prescribed substance use: denies use How often does anyone, including family, friends and others, physically hurt you: never How often does anyone, including family, friends and others, insult or talk down to you: never How often does anyone, including family, friends and others, threaten you with harm: never How often does anyone, including family, friends and others, scream or curse at you: never service: No Exam Const: Vital Signs, click to edit/add: Vital Signs - 24 hr 07/26/24 11:23 07/26/24 11:30 07/26/24 11:37 Temperature 98.7 F Pulse Rate 62 Pulse Rate [Pulse Oximeter] 63 Respiratory Rate 16 20 Blood Pressure Blood Pressure [Ri ght Upper Arm] 164/114 H Pulse Oximetry 97 97 95 Oxygen Delivery Me thod Room Air 07/26/24 11:54 07/26/24 12:00 07/26/24 12:03 Temperature Pulse Rate 62 59 L 60 Pulse Rate [Pulse Oximeter] Respiratory Rate 18 Blood Pressure 134/91 H Blood Pressure [Ri ght Upper Arm] Pulse Oximetry 97 97 96 Oxygen Delivery Me thod 07/26/24 12:15 07/26/24 12:22 07/26/24 12:23 Temperature Pulse Rate 60 61 66 Pulse Rate [Pulse Oximeter] Respiratory Rate 15 Blood Pressure 143/95 H Blood Pressure [Ri ght Upper Arm] Pulse Oximetry 98 97 97 Oxygen Delivery Me thod 07/26/24 12:30 07/26/24 12:42 07/26/24 12:45 Temperature Pulse Rate 62 63 Pulse Rate [Pulse Oximeter] Respiratory Rate 13 16 Blood Pressure 150/94 H Blood Pressure [Ri ght Upper Arm] Pulse Oximetry 97 97 Oxygen Delivery Me thod 07/26/24 13:02 07/26/24 13:18 07/26/24 13:22 Temperature Pulse Rate 62 Pulse Rate [Pulse Oximeter] Respiratory Rate 24 19 16 Blood Pressure 147/87 H 145/100 H Blood Pressure [Ri ght Upper Arm] Pulse Oximetry 98 Oxygen Delivery Me thod Sue's seen on arrival, she has taken back to exam room 5, was brought back in a wheelchair. She is alert, interactive, no apparent distress, breathing easy on room air, maintaining her airway. Pupils are equal round reactive, extraocular muscles intact, no nystagmus. Visual moreno without any deficits on gross confrontation. She closes her eyes symmetrically, do not note any eye drooping baseline. She can puff out her cheeks. Her speech does seem to be normal when she does talk. When she smiles there is maybe a little sense of right corner of her mouth drooping compared to the left but family feels like this is baseline for her. Neck supple, no at a full range of motion accessory muscle use, no tachypnea. CV, normal S1-S2, no S3-S4. Patient has flaccid right arm paralysis at this point, does not give me any hand social staff worker strength. She is holding her fingers in a flexed position, really is unable to open them at this time. Family notes that prior she was able to do some opening of her fingers. She is in a wheelchair at this point, AFOs on the leg. Do assist nursing staff with transferring her to the bed, seems to take 2. Documenting provider has reviewed patient's vital signs: yes Course Course ED Course: She reportedly has stage 5 kidney disease. Will start with a head CT, have reviewed her chart, there is a history of a stroke with right hemiparesis that was either ischemic with microvascular changes or embolic of on known origin. She is on 325 mg of aspirin. Symptoms seemed to be present yesterday so we are likely in a window of at least 24 hours. Did review with family here with her that other etiologies such as infections can precipitate worsening of neurologic symptoms in patients with prior strokes. Thus, need to consider that as well. Will do the stat head CT and try to talk to Stroke Neurology as soon as possible. Reevaluation(s) Time of Reevaluation #1: 14:00 Reevaluation #1: Patient is reported to be feeling tired. She does seem to have more right eye ptosis now baseline than when she arrived. We unfortunately not going to be able to do the MRI of her brain until tomorrow. We have discussed that we have no focal source of infection, both a neurologist and myself have high enough clinical suspicion and after talking to our hospitalist, we are going to proceed with chest CT abdomen pelvis with this noncontrast. Her liver enzymes have some mild elevation, want to ensure that we do not see anything with her gallbladder. The chest CT will definitely rule out occult pneumonia which she certainly is at risk for aspiration. They note that she has had no symptoms suggestive of infection but I do think it is important to rule it out. They understand that she will stay overnight on observation. Consultations Consultation #1: Spoke with Stroke Neurology Dr. Tejeda from [place]. He did see this lady prior with her for CVA. He agrees with just doing the noncontrast head CT. If that does not show a new bleed or a new CVA, he thinks we can just proceed with MR brain and MR angio head without contrast to preserve kidney function. He will see her in a while, he will call back probably in about 1/2 hour when she is back from imaging and will plan to see her. 12:45 p.m.: Dr. Suarez feels that we only need to proceed with MR brain. Does wonder if this is worsening due to underlying infectious problem. We still do not have urinalysis. Per him, we only need MR brain noncontrast, does not feel that we need any angio imaging at this time. Will see if this can be done today, otherwise, patient may need to have MR imaging tomorrow morning. Time: 11:39 Consultation #2: Have reviewed current situation with our hospitalist Dr. Gómez. Patient will be observed overnight, plan for MRI in the morning. We discussed the concern for occult infection, will proceed with noncontrast chest abdomen pelvis CT to ensure no other etiology causing her tiredness, increased right weakness. Her white blood count is mildly elevated, C reactive protein was normal. No evidence on urinalysis for infection. Time: 14:00 Vital Signs Vital signs: Initial Vital Signs Pulse Oximetry 97 07/26/24 11:23 Vital Signs Pulse Oximetry 97 07/26/24 11:23 Temperature 98.7 F 07/26/24 11:30 Pulse Rate 62 07/26/24 13:22 Respiratory Rate 16 07/26/24 13:22 Blood Pressure 145/100 H 07/26/24 13:22 Pulse Oximetry 98 07/26/24 13:22 Oxygen Delivery Method Room Air 07/26/24 11:30 Medical Decision Making Lab Data Lab results reviewed: Yes I reviewed the patient's lab results Labs: Lab Results 07/26/24 07/26/24 07/26/24 Range/Units 11:19 12:06 13:18 WBC 13.26 H (4.50-11.00) K/uL RBC 4.61 (4.00-5.20) m/uL Hgb 13.5 (12.0-16.0) gm/dL Hct 41.1 (33.0-51.0) % MCV 89 (80-100) fL MCH 29 (26-34) pg MCHC 33 (32-36) gm/dL RDW Coeff of Leanne 14.1 (11.5-15.5) % Plt Count 331 (140-440) K/uL Neut % (Auto) 80.9 H (42.0-72.0) % Lymph % (Auto) 11.8 L (20-44) % Evans % (Auto) 5.4 (0.0-11.0) % Eos % (Auto) 1.1 (0.0-7.0) % Baso % (Auto) 0.6 (0.0-3.0) % Neut # (Auto) 10.70 H (1.7-7.0) K/uL Lymph # (Auto) 1.60 (0.90-2.90) K/uL Evans # (Auto) 0.70 (0.00-0.90) K/UL Eos # (Auto) 0.10 (0.00-0.50) K/uL Baso # (Auto) 0.10 (0.00-0.30) K/uL Abs Immat Gran (auto) 0.00 (0.00-0.30) K/uL Imm/Tot Granulo (auto) 0.2 % Sodium 142 (135-149) mmol/L Potassium 4.1 (3.6-5.1) mmol/L Chloride 107 (96-114) mmol/L Carbon Dioxide 23 (20-32) mmol/L Anion Gap 12 (7-15) mEq/L BUN 42 H (7-30) mg/dL Creatinine 4.1 H (0.5-1.5) mg/dL Estimated Creat Clear 10.24 Estimated GFR 11 ml/min Glucose 126 H (60-115) mg/dL Lactate 1.6 (0.5-1.9) mmol/L Calcium 10.1 (8.4-10.6) mg/dL Total Bilirubin 1.0 (0.1-1.5) mg/dL AST 38 H (12-35) U/L ALT 46 H (4-35) U/L Alkaline Phosphatase 61 (40-150) U/L C-Reactive Protein < 0.5 L (0.5-1.0) mg/dL Total Protein 7.8 (6.0-8.3) g/dL Albumin 4.5 (3.3-5.0) g/dL Urine Color Yellow (Yellow) Urine Appearance Clear (Clear) Urine pH 6.0 (5.0-8.5) Ur Specific [place] 1.025 (1.000-1.030) Urine Protein 3+ A (Negative) Urine Glucose (UA) Trace A (Negative) Urine Ketones Negative (Negative) Urine Blood 1+ A (Negative) Urine Nitrite Negative (Negative) Urine Bilirubin Negative (Negative) Urine Urobilinogen 0.2 (0.2-1.0) Ur Leukocyte Esterase Negative (Negative) Urine RBC 0-2 (0-2) Urine WBC 0-2 (0-5) Urine WBC Clumps None (None) Ur Squamous Epith Cells Few (None-Few) Urine Bacteria None (None) Fine Granular Casts Few A (None) SARS-CoV-2 (PCR) Negative SARS-CoV-2 (Negative) Influenza Type A (PCR) Negative PCR FLU A (Negative) Influenza Type B (PCR) Negative PCR FLU B (Negative) RSV (PCR) Negative PCR RSV (Negative) Imaging Data CT scan - head: Attestation: I have reviewed the pertinent imaging results. Radiologist's impression: Patient: SUE BETTENCOURT Facility:?[facility] Patient ID:?[id number] Site Patient ID:?[id number]. Site :?[id number] Study:?CT-Head W/O-07/26/2024 11:53:55 AM Ordering Physician:?Liz Nath Final Report: INDICATION: History of a stroke. Worsening symptoms with decreased use of the right hand and some facial changes. COMPARISON: 10/21/2023, 10/19/2023 TECHNIQUE: CT of the brain / head without intravenous contrast. Multiplanar axial, coronal, and sagittal reformats were reconstructed. FINDINGS: No intracranial hemorrhage. Generalized parenchymal volume loss. No acute or subacute cortically based infarct. There is some asymmetric streak artifact across the middle cranial fossas. Near confluent white matter hypodensities may be related to chronic microvascular ischemia. Atherosclerosis. Density and ectasia of the basilar artery is similar to the previous exam. No mass or mass effect. Normal ventricles. No skull fractures. No worrisome focal bone lesion. IMPRESSION: No acute intracranial findings. No findings of an acute or subacute transcortical infarct. Moderate to severe white matter disease has a similar pattern to the previous exam. Please note that all CT scans at this facility use dose modulation, iterative reconstruction, and/or weight-based dosing when appropriate to reduce radiation dose to as low as reasonably achievable. Dictated by Sunshine Alcocer MD @ 07/26/2024 12:20:51 PM (Electronic Signature) Chest x-ray: Attestation: I have reviewed the pertinent imaging results. My impression: Left lung field looks more confluently hazy verses the right. Later on her chest CT, it became definitely apparent that the implant of her breast is still there on the left side but is gone on the right side giving the difference in tissue attenuation that was seen on the chest x-ray. Radiologist's impression: Patient: SUE BETTENCOURT Facility:?[facility] Patient ID:?[id number] Site Patient ID:?[id number]. Site :?[id number] Study:?XRay-Chest 2 VIEW-07/26/2024 11:54:52 AM Ordering Physician:Venkatesh Nath Final Report: INDICATION: Worsening neuro symptoms with prior CVA, rule out aspiration TECHNIQUE: Chest 2 views. COMPARISON: None. FINDINGS: Cardiovascular and mediastinum: Heart size is normal. Unremarkable mediastinum. Lungs and pleural spaces: Lungs are clear. No sign of infiltrate or mass. No sign of pleural effusion. Apparent increased attenuation of the left hemithorax is secondary to overlying soft tissue as there is no effusion on the lateral. No pneumothorax. Bones and soft tissues: No significant findings. IMPRESSION: No acute cardiopulmonary process. Dictated by Paris Valencia MD @ 07/26/2024 12:22:28 PM (Electronic Signature) CT Chest/Ab/Pelvis: Attestation: I have reviewed the pertinent imaging results. Radiologist's impression: Patient: SUE BETTENCOURT Facility:?[facility] Patient ID:?[id number] Site Patient ID:?[id number]. Site :?1955 Study:?CT-Chest/Abd/Pelvis WITHOUT-07/26/2024 2:23:17 PM Ordering Physician:Venkatesh Nath Final Report: INDICATION: Weakness, possible infection with no clear source. COMPARISON: Chest radiograph from the same day TECHNIQUE: CT chest, abdomen, and pelvis without contrast. Multiplanar axial, coronal, and sagittal reformats are included. MIP images to improve detection of pulmonary nodules are included. Intravenous contrast: None. FINDINGS: CHEST Airway: Expiratory appearance of the airway. Lungs: Mild basilar atelectasis. There are a few scattered pulmonary nodules. For example see the 4 millimeter nodule on series 2, image 36 in both the right and left lungs. No consolidations. No edema or emphysema. Pleura: No pleural effusion. No pneumothorax. Lymph nodes: No thoracic adenopathy. Mediastinum: No pneumomediastinum. No mass. Heart and great vessels: Small pericardial effusion. Normal cardiac chamber size. Heavy [place]low[place] dee-ni' coronary calcified atherosclerotic plaques. No aortic aneurysm. Normal caliber main pulmonary artery. Chest wall: Right mastectomy. Left mastectomy with reconstruction including an implant. ABDOMEN AND PELVIS Liver: Normal noncontrast liver. Gallbladder and bile ducts: Normal gallbladder. No bile duct dilation. Pancreas: There are few scattered punctate calcifications along the periphery of the pancreas that may be related to a remote pancreatitis. No pancreatitis today. Spleen: Normal spleen size. Adrenal glands: Normal. Kidneys: Normal renal position. Mild bilateral renal atrophy. There is at least 1 left renal cyst that measures 1.4 centimeters. No contour deforming solid mass. No urinary tract dilation. Urinary bladder: Normal. Pelvis: No cyst or mass. Vessels: Atherosclerotic vascular calcifications. Retroaortic left renal vein. Bowel: No dilated or inflamed bowel. The appendix is not discretely seen. No substantial diverticular burden. Mild stool burden. Lymph nodes: No adenopathy. Peritoneum: No ascites. Abdominal wall: Small fat containing right inguinal hernia. No bowel containing hernia. BONES: Large Schmorl`s node in the superior endplate of L2. No acute or healing fracture. No focal bone lesions. IMPRESSION: 1. There are a few scattered pulmonary nodules. These could be infectious or inflammatory but there is not any large pneumonia. Recommend a follow-up chest CT in 1 year, or sooner depending on the patient`s oncologic history. 2. No infectious source identified in the abdomen or pelvis on this noncontrast examination. Please note that all CT scans at this facility use dose modulation, iterative reconstruction, and/or weight-based dosing when appropriate to reduce radiation dose to as low as reasonably achievable. Dictated by Sunshine Alcocer MD @ 07/26/2024 2:41:37 PM (Electronic Signature) ECG Data Attestation: I personally reviewed and interpreted this ECG as follows: (Normal sinus rhythm, 62 beats per minute. Poor R-wave progression anterior precordial leads without any ST change, flipped T-waves noted.) Prior ECG tracings: available for review (Unchanged from October 2023.) Discharge Plan Discharge Clinical Impression: Acute right-sided muscle weakness, Hemiparesis affecting right side as late effect of cerebrovascular accident (CVA) Patient Disposition: Admitted As Observation
--- NOTE | 2024-07-26 11:23 | CRLHL7_ITS ---
For Patients: As a result of the Century Cures Act, medical imaging exams and procedure reports are released immediately into your electronic medical record. You may view this report before your referring provider. If you have questions, please contact your health care provider. INDICATION: History of a stroke. Worsening symptoms with decreased use of the right hand and some facial changes. COMPARISON: 10/21/2023, 10/19/2023 TECHNIQUE: CT of the brain / head without intravenous contrast. Multiplanar axial, coronal, and sagittal reformats were reconstructed. FINDINGS: No intracranial hemorrhage. Generalized parenchymal volume loss. No acute or subacute cortically based infarct. There is some asymmetric streak artifact across the middle cranial fossas. Near confluent white matter hypodensities may be related to chronic microvascular ischemia. Atherosclerosis. Density and ectasia of the basilar artery is similar to the previous exam. No mass or mass effect. Normal ventricles. No skull fractures. No worrisome focal bone lesion. IMPRESSION: No acute intracranial findings. No findings of an acute or subacute transcortical infarct. Moderate to severe white matter disease has a similar pattern to the previous exam. Please note that all CT scans at this facility use dose modulation, iterative reconstruction, and/or weight-based dosing when appropriate to reduce radiation dose to as low as reasonably achievable. Dictated by Sunshine Alcocer MD @ 07/26/2024 12:20:51 PM (Electronically Signed)
--- NOTE | 2024-07-26 11:36 | CRLHL7_ITS ---
For Patients: As a result of the Century Cures Act, medical imaging exams and procedure reports are released immediately into your electronic medical record. You may view this report before your referring provider. If you have questions, please contact your health care provider. INDICATION: Worsening neuro symptoms with prior CVA, rule out aspiration TECHNIQUE: Chest 2 views. COMPARISON: None. FINDINGS: Cardiovascular and mediastinum: Heart size is normal. Unremarkable mediastinum. Lungs and pleural spaces: Lungs are clear. No sign of infiltrate or mass. No sign of pleural effusion. Apparent increased attenuation of the left hemithorax is secondary to overlying soft tissue as there is no effusion on the lateral. No pneumothorax. Bones and soft tissues: No significant findings. IMPRESSION: No acute cardiopulmonary process. Dictated by Paris Valencia MD @ 07/26/2024 12:22:28 PM (Electronically Signed)
[2024-07-26 11:57] LABS: Albumin* 4.5 g/dL (3.3-5.0); Chloride* 107 mmol/L (96-114); Potassium* 4.1 mmol/L (3.6-5.1); Sodium* 142 mmol/L (135-149)
[2024-07-26 11:59] LABS: Alanine Aminotransferase* 46 U/L (4-35); Aspartate Amino Transferase* 38 U/L (12-35); Blood Urea Nitrogen* 42 mg/dL (7-30); Creatinine* 4.1 mg/dL (0.5-1.5); Est. Creatinine Clearance* 10.24; Estimated Glomerular Filt Rate 11 ml/min
[2024-07-26 12:00] LABS: Alkaline Phosphatase* 61 U/L (40-150); Anion Gap 12 mEq/L (7-15); Calcium* 10.1 mg/dL (8.4-10.6); Carbon Dioxide* 23 mmol/L (20-32); Glucose* 126 mg/dL (60-115); Total Protein* 7.8 g/dL (6.0-8.3)
[2024-07-26 12:05] LABS: C Reactive Protein* < 0.5 mg/dL (0.5-1.0)
[2024-07-26 12:11] LABS: Lactate* 1.6 mmol/L (0.5-1.9)
[2024-07-26 12:12] LABS: Basophils Percent Auto 0.6 % (0.0-3.0); Eosinophils Percent Auto 1.1 % (0.0-7.0); Hematocrit 41.1 % (33.0-51.0); Hemoglobin* 13.5 gm/dL (12.0-16.0); Immature Granulocytes Pct Auto 0.2 %; Lymphocytes Percent Auto 11.8 % (20-44); Mean Corpuscular HGB Conc 33 gm/dL (32-36); Mean Corpuscular Hemoglobin 29 pg (26-34); Mean Corpuscular Volume 89 fL (80-100); Monocytes Percent Auto 5.4 % (0.0-11.0); Neutrophils Percent Auto 80.9 % (42.0-72.0); Platelet Count* 331 K/uL (140-440); RDW Coefficient of Variation % 14.1 % (11.5-15.5); Red Blood Count 4.61 m/uL (4.00-5.20); White Blood Count* 13.26 K/uL (4.50-11.00)
[2024-07-26 12:20] LABS: PCR FLU A Negative PCR FLU A (Negative); PCR FLU B Negative PCR FLU B (Negative); PCR RSV Negative PCR RSV (Negative); SARS PCR* Negative SARS-CoV-2 (Negative)
[2024-07-26 13:24] LABS: Appearance Urine Clear (Clear); Bilirubin Urine Negative (Negative); Blood Urine 1+ (Negative); Color Urine Yellow (Yellow); Glucose Urine Trace (Negative); Ketones Urine Negative (Negative); Leukocyte Esterase Urine Negative (Negative); Nitrite Urine Negative (Negative); Protein Urine 3+ (Negative); Specific Gravity Urine 1.025 (1.000-1.030); Urobilinogen Urine 0.2 (0.2-1.0)
[2024-07-26 13:35] LABS: Fine Granular Casts Urine Few; RBC Urine 0-2 (0-2); Squamous Epithelial Cell Urine Few (None-Few); WBC Urine 0-2 (0-5)
--- NOTE | 2024-07-26 13:56 | CRLHL7_ITS ---
For Patients: As a result of the Century Cures Act, medical imaging exams and procedure reports are released immediately into your electronic medical record. You may view this report before your referring provider. If you have questions, please contact your health care provider. INDICATION: Weakness, possible infection with no clear source. COMPARISON: Chest radiograph from the same day TECHNIQUE: CT chest, abdomen, and pelvis without contrast. Multiplanar axial, coronal, and sagittal reformats are included. MIP images to improve detection of pulmonary nodules are included. Intravenous contrast: None. FINDINGS: CHEST Airway: Expiratory appearance of the airway. Lungs: Mild basilar atelectasis. There are a few scattered pulmonary nodules. For example see the 4 millimeter nodule on series 2, image 36 in both the right and left lungs. No consolidations. No edema or emphysema. Pleura: No pleural effusion. No pneumothorax. Lymph nodes: No thoracic adenopathy. Mediastinum: No pneumomediastinum. No mass. Heart and great vessels: Small pericardial effusion. Normal cardiac chamber size. Heavy [place] coronary calcified atherosclerotic plaques. No aortic aneurysm. Normal caliber main pulmonary artery. Chest wall: Right mastectomy. Left mastectomy with reconstruction including an implant. ABDOMEN AND PELVIS Liver: Normal noncontrast liver. Gallbladder and bile ducts: Normal gallbladder. No bile duct dilation. Pancreas: There are few scattered punctate calcifications along the periphery of the pancreas that may be related to a remote pancreatitis. No pancreatitis today. Spleen: Normal spleen size. Adrenal glands: Normal. Kidneys: Normal renal position. Mild bilateral renal atrophy. There is at least 1 left renal cyst that measures 1.4 centimeters. No contour deforming solid mass. No urinary tract dilation. Urinary bladder: Normal. Pelvis: No cyst or mass. Vessels: Atherosclerotic vascular calcifications. Retroaortic left renal vein. Bowel: No dilated or inflamed bowel. The appendix is not discretely seen. No substantial diverticular burden. Mild stool burden. Lymph nodes: No adenopathy. Peritoneum: No ascites. Abdominal wall: Small fat containing right inguinal hernia. No bowel containing hernia. BONES: Large Schmorl`s node in the superior endplate of L2. No acute or healing fracture. No focal bone lesions. IMPRESSION: 1. There are a few scattered pulmonary nodules. These could be infectious or inflammatory but there is not any large pneumonia. Recommend a follow-up chest CT in 1 year, or sooner depending on the patient`s oncologic history. 2. No infectious source identified in the abdomen or pelvis on this noncontrast examination. Please note that all CT scans at this facility use dose modulation, iterative reconstruction, and/or weight-based dosing when appropriate to reduce radiation dose to as low as reasonably achievable. Dictated by Sunshine Alcocer MD @ 07/26/2024 2:41:37 PM (Electronically Signed)
[2024-07-26 14:49] LABS: Slide Review Reflex No
--- NOTE | 2024-07-26 15:45 | PM.IMHP1 ---
Assessment and Plan Assessment and plan (1) Weakness: Problem comment: -acute on chronic generalized weakness. Still not back to baseline, but close. Status: Acute (2) Hemiparesis affecting right side as late effect of cerebrovascular accident (CVA): Problem comment: -acute on chronic. Transient decrease in function today, now back to baseline level of function. -continue with ASA 325 mg po daily. -MRI of head tomorrow -PT, OT consultation, including to reassess cognition Status: Acute (3) Cerebral aneurysm: Problem comment: -Cerebral MRA at this admission showed at small 3 mm focal outpouching arising from the ophthalmic segment of the right intracranial ICA directed superiorly may represent a prominent infundibulum or tiny aneurysm. Given the size, radiologist recommends an interval follow-up in 6-12 months to confirm stability. Also to consider consultation with neurointerventional radiology for follow-up. -radiologist recommendation: Outpatient consultation with the [facility] Neurointerventional Service can be arranged by calling [phone]. -is already following neurology services as an outpatient. Status: Suspected (4) JAJA on CPAP: Problem comment: -asked patient to bring her home CPAP. Status: Chronic (5) Diabetes: Problem comment: - Hemoglobin A1c at 6.7 in Sep 2023 . on low dose, renal dosing for both Januvia and glimepiride. - will start Low dose ISS during this admission. Status: Acute (6) Hypertension: Status: Acute (7) Hyperlipidemia: Problem comment: -if repeat LDL is greater than 70 then consider increasing atorvastatin from usual dose of 40 mg daily to 80 mg daily - increased 10/19 Status: Chronic (8) History of ischemic stroke: Problem comment: -ischemic stroke in 2014, followed by 3 months of PT/rehab. -patient states that she almost does not have any residual deficits from her previous stroke. -on aspirin 325 mg and atorvastatin 40 at home. Status: Acute (9) CKD stage 5 secondary to hypertension: Problem comment: -her baseline creatinine is 4.1; she has a glomerular filtration rate of 11 by MDRD giving her stage 5 chronic kidney disease - worsening kidney function this year; creatinine now up to 4s and even 5s - kidney biopsy consistent with mostly hypertension damage as opposed to diabetes despite nephrotic range urine protein; likely to progress to end stage kidney disease - she is working with [facility] for transplant evaluation; possibly doing a shared partner transplant with her sister as a live donor Status: Chronic Plan 1. Reviewed impression, plans, recommendations with patient and her 2. Answered their questions their satisfaction 3. Explained that additional recommendations will be given after additional assessments are completed 4. They agree with above stated plans and recommendations Total Time Spent Total Time Spent: 65 minutes Hospitalist- H&P: HPI History of Present Illness Date Seen: 07/26/24 Chief complaint: eye drooping, trouble walking, previous stroke Narrative: Denita Osuna is a 68 year old woman with history of dense right hemiparesis status post stroke in the past, last hospitalized for the same in October of 2023. Initially treated with aspirin and clopidogrel, and now maintained on aspirin 325 mg once daily. Continues to work with physical therapy and occupational therapy in an effort to maximize her function. Her works diligently with patient in therapy staff. Patient and have noticed that over the last 24-36 hours she has had increasing weakness on right upper extremity, right lower extremity, and even drooping on the right side of the face. In conjunction with the same her appetite has been decreased, she has been much more fatigued and sleepy. also notes decreased sense of attention verses decreased hearing with him having to repeat himself so that she hears and responds. No other focal signs or symptoms. Review of Systems Status of ROS: Reports: 6 or more systems reviewed and unremarkable except as noted in History and below Narrative: No fevers, rigors, diaphoresis. No upper or lower respiratory tract symptoms, no upper lower gastrointestinal tract symptoms no upper or lower oral genitourinary tract symptoms. He was on a trip with her here for up in [address] [place] [address] in [place] and returned back to their home this past , 3 days ago. Was in her usual state of health most of Saturday but Saturday evening was when they 1st noticed the increased sense of fatigue and tiredness. 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 Creatinine is over the last several months have been running around 5 and more recently there in the upper 4s. In the beginning of this year should she 3 medications including sodium bicarbonate, allopurinol, and the phosphorus binder Renvela. Denies angina, anginal equivalent, syncope or near syncope, orthostasis, lightheadedness, dizziness, vertigo, nausea or vomiting, palpitations, dyspnea at rest, paroxysmal nocturnal dyspnea, orthopnea, or new edema. Does utilize her right lower extremity AFO brace consistently when walking. When she was [place] this past [place] she was a lot more physically active than she normally has been in her home he including walking up and down steps several times during the course of a day. Medical Decision Making Medical Decision Making Code Status: DNR DNI resuscitation status in the event of cardiopulmonary demise. Has patient completed a Health Care Directive: No During This Stay, Who Would You Like To Make Decisions For You In The Event You Are Unable To Make Them For Yourself?: Elías, , is her designated decision maker if she is unable to speak on her own behalf. [facility] Medical History Hyperlipidemia ?E78.5 - Hyperlipidemia, unspecified (ICD-10) History of right breast cancer ?Z85.3 - Personal history of malignant neoplasm of breast (ICD-10) Cerebral aneurysm ?I67.1 - Cerebral aneurysm, nonruptured (ICD-10) JAJA on CPAP ?G47.33 - Obstructive sleep apnea (adult) (pediatric) (ICD-10) History of ischemic stroke ?Z86.73 - Personal history of transient ischemic attack (TIA), and cerebral infarction without residual deficits (ICD-10) CKD stage 5 secondary to hypertension ?I12.0 - Hypertensive chronic kidney disease with stage 5 chronic kidney disease or end stage renal disease (ICD-10) ?N18.5 - Chronic kidney disease, stage 5 (ICD-10) Diabetes ?E11.9 - Type 2 diabetes mellitus without complications (ICD-10) Social History What is your current living situation?: I presently have a place to live Problems where you live: no known problems Problems where you live details: no known problems In the past 12 months, utilities in danger of being shut off: no In past 12 months, lack of transportation kept you from medical appts, meetings, work, or getting things needed for daily living: no In the past 12 mos, have been you worried that your food would run out before you had money to buy more?: never true In the past 12 mos, the food you bought just didn't last and you didn't have money to buy more?: never true Smoking Status: Never smoker Do you use any of these nicotine containing products: None Second hand tobacco smoke exposure: Yes How often do you have a drink containing alcohol: never How often do you have six or more drinks on one occasion: Never AUDIT-C Alcohol total score: 0 Non-prescribed substance use: denies use How often does anyone, including family, friends and others, physically hurt you: never How often does anyone, including family, friends and others, insult or talk down to you: never How often does anyone, including family, friends and others, threaten you with harm: never How often does anyone, including family, friends and others, scream or curse at you: never service: No Meds Home Medications and Allergies Home Medications ?Medication ?Instructions ?Recorded ?Confirmed ?Type aspirin 325 mg tablet,delayed 325 mg PO DAILY 10/18/23 07/26/24 History release atorvastatin 40 mg tablet 80 mg PO DAILY 10/18/23 07/26/24 History latanoprost 0.005 % eye drops 1 drp ophthalmic (eye) HS 10/18/23 07/26/24 History [id number] 250 mg-dha 90 1 cap PO DAILY 10/18/23 07/26/24 History mg-epa 160 [id number]-cehx-zeax capsule (Ocuvite Adult 50 Plus) sitagliptin phosphate 25 mg tablet 25 mg PO DAILY 10/18/23 07/26/24 History (Januvia) metoprolol tartrate 25 mg tablet 25 mg PO BID 07/26/24 07/26/24 History timolol maleate 0.5 % eye gel 1 drp ophthalmic (eye) BID 07/26/24 07/26/24 History forming solution Allergies Allergy/AdvReac Type Severity Reaction Status Date / Time No Known Drug Allergies Allergy Verified 07/26/24 11:40 Exam Narrative: Exam Narrative: Examined patient in her hospital room with her at her side. She does speak with me but allows her to speak to the details that she does not recall such as when a particular medication was discontinued, as well as results of recent laboratory studies ordered by her equipment [employer]. In a here vision is adequate. Hearing is decreased but adequate when I have her attention and she is looking at me as we are speaking. Alert and oriented to self, place, and somewhat to time and situation. Seeming mild ptosis of right eyelid superior. No other facial asymmetry. Conjugate gaze. Midline nasal septum. Gag reflex intact. Dentition in fair repair. Neck is supple. Midline trachea. No JVD or hepatojugular reflux. No carotid bruits. No head neck lymphadenopathy. Lungs are clear to auscultation without wheezing, rhonchi, rales. Chest wall excursions are full. No CVA tenderness with some being. Heart tones with regular rhythm, normal S1-S2, without murmur, gallop, rub. PMI not laterally displaced. Abdomen with active bowel sounds, soft, nontender. Mild flexion contracture right upper extremity. Babinski reflex positive on right lower extremity and negative on the left. Const: Vital Signs, click to edit/add: Vital Signs - 24 hr 07/26/24 11:23 07/26/24 11:30 07/26/24 11:37 Temperature 98.7 F Pulse Rate 62 Pulse Rate [Pulse Oximeter] 63 Respiratory Rate 16 20 Blood Pressure Blood Pressure [Ri ght Upper Arm] 164/114 H Pulse Oximetry 97 97 95 Oxygen Delivery Me thod Room Air 07/26/24 11:54 07/26/24 12:00 07/26/24 12:03 Temperature Pulse Rate 62 59 L 60 Pulse Rate [Pulse Oximeter] Respiratory Rate 18 Blood Pressure 134/91 H Blood Pressure [Ri ght Upper Arm] Pulse Oximetry 97 97 96 Oxygen Delivery Me thod 07/26/24 12:15 07/26/24 12:22 07/26/24 12:23 Temperature Pulse Rate 60 61 66 Pulse Rate [Pulse Oximeter] Respiratory Rate 15 Blood Pressure 143/95 H Blood Pressure [Ri ght Upper Arm] Pulse Oximetry 98 97 97 Oxygen Delivery Me thod 07/26/24 12:30 07/26/24 12:42 07/26/24 12:45 Temperature Pulse Rate 62 63 Pulse Rate [Pulse Oximeter] Respiratory Rate 13 16 Blood Pressure 150/94 H Blood Pressure [Ri ght Upper Arm] Pulse Oximetry 97 97 Oxygen Delivery Me thod 07/26/24 13:02 07/26/24 13:18 07/26/24 13:22 Temperature Pulse Rate 62 Pulse Rate [Pulse Oximeter] Respiratory Rate 24 19 16 Blood Pressure 147/87 H 145/100 H Blood Pressure [Ri ght Upper Arm] Pulse Oximetry 98 Oxygen Delivery [facility] Hospitalist - H&P: Result Labs Labs: Short CBC 07/26/24 Range/Units 11:19 WBC 13.26 H (4.50-11.00) K/uL Hgb 13.5 (12.0-16.0) gm/dL Hct 41.1 (33.0-51.0) % Plt Count 331 (140-440) K/uL BMP 07/26/24 11:19 Sodium 142 Potassium 4.1 Chloride 107 Carbon Dioxide 23 BUN 42 H Creatinine 4.1 H Glucose 126 H Calcium 10.1 Liver Function 07/26/24 Range/Units 11:19 Total Bilirubin 1.0 (0.1-1.5) mg/dL AST 38 H (12-35) U/L ALT 46 H (4-35) U/L Alkaline Phosphatase 61 (40-150) U/L Albumin 4.5 (3.3-5.0) g/dL Urine 07/26/24 Range/Units 13:18 Urine Color Yellow (Yellow) Urine Appearance Clear (Clear) Urine pH 6.0 (5.0-8.5) Ur Specific [place] 1.025 (1.000-1.030) Urine Protein 3+ A (Negative) Urine Glucose (UA) Trace A (Negative) ECG Attestation: I personally reviewed and interpreted this ECG as follows: ECG interpretation date: 07/26/24 Interpretation: Normal sinus rhythm. Imaging CT scan - head: Radiologist's impression: No acute or subacute changes with persistent moderate white matter disease consistent with small-vessel ischemic changes. Chest x-ray: Radiologist's impression: No acute changes noted. CT Chest/Ab/Pelvis: Radiologist's impression: No acute changes noted on CT scan of chest, abdomen, pelvis. 1. There are a few scattered pulmonary nodules. These could be infectious or inflammatory but there is not any large pneumonia. Recommend a follow-up chest CT in 1 year, or sooner depending on the patient`s oncologic history. 2. No infectious source identified in the abdomen or pelvis on this noncontrast examination.
--- NOTE | 2024-07-26 19:52 | PC.NURSE ---
End of shift-- Pleasant and cooperative patient was admitted to Med-Surg this afternoon. Hypertensive, but VS otherwise WNL. Afebrile. SPO2 >90% on RA. Pt oriented to person and time, has right sided weakness/ facial droop as per her baseline. She answers simple questions appropriately. Telemetry shows NSR. She was up to the chair with assist of 2, but was unable to ambulate with assist of 2, belt and AFO. Grace steady was used to go back to bed and pt did very well with that. LS CTA. She denied nausea and ate 75% of a regular dinner independently. Report to MARIMAR Silva.
[2024-07-26] MEDS: METOPROLOL TARTRATE 25 MG TABLET PO (21:39)
[2024-07-26] MEDS: LATANOPROST 0.005% OPHTH 1 DROP EYE-BOTH (21:39)
[2024-07-26] MEDS: SODIUM CHLORIDE 0.9 % (FLUSH) 10 ML SYRINGE 5 ML IVF (21:40)
[2024-07-27] VITALS (11 sets, daily range): BP systolic 134–175; BP diastolic 76–107; PULSE 51–79; RESP 14–16; TEMP 36.6–36.8; O2SAT 94–98
[2024-07-27 06:34] LABS: HCO3 VBG 24 mmol/L (21-28); Lactate* 1.1 mmol/L (0.5-1.9); PCO2 VBG 43 mmHG (40-50); PO2 VBG < 30.1 mmHG (25-47); pH VBG 7.362 (7.32-7.43)
[2024-07-27 06:42] LABS: Hematocrit 38.9 % (33.0-51.0); Hemoglobin* 12.7 gm/dL (12.0-16.0); Mean Corpuscular HGB Conc 33 gm/dL (32-36); Mean Corpuscular Hemoglobin 29 pg (26-34); Mean Corpuscular Volume 90 fL (80-100); Platelet Count* 319 K/uL (140-440); Red Blood Count 4.33 m/uL (4.00-5.20); White Blood Count* 12.25 K/uL (4.50-11.00)
[2024-07-27 06:46] LABS: Slide Review Reflex No
--- NOTE | 2024-07-27 06:57 | PC.NURSE ---
Pt pleasant, alert and oriented. Pt hypertensive with bradycardia, otherwise, VSS. Right side weakness noted. 2a with claudette steady utilized, continent/incontinent of bladder. Pt attempted to get out of bed throughout the night, bed alarm utilized. Pt in bed, appears to be resting, call light within reach.?
[2024-07-27 06:59] LABS: Chloride* 105 mmol/L (96-114); Sodium* 140 mmol/L (135-149)
[2024-07-27 07:00] LABS: Potassium* 3.9 mmol/L (3.6-5.1)
--- NOTE | 2024-07-27 07:00 | CRLHL7_ITS ---
For Patients: As a result of the Century Cures Act, medical imaging exams and procedure reports are released immediately into your electronic medical record. You may view this report before your referring provider. If you have questions, please contact your health care provider. Indication: possible new cva, inc right weakness, hx cva Technique: Noncontrast sagittal T1, axial FLAIR, T2 turbo spine echo, and diffusion weighted images. Supplemental post contrast T1 weighted axial and coronal sequences are provided after administration of 20 cc Dotarem gadolinium-based IV contrast. Comparison: CT head 07/27/2024. MRI 10/21/2023 Findings: There is a 1.1 cm focus of diffusion restriction and T2 prolongation in the medial aspect of the right cerebral peduncle. No mass effect or midline shift. No hydrocephalus. Mild generalized parenchymal volume loss. Moderate chronic small vessel ischemic changes. Chronic lacunar infarct in the left gisselle josh, left basal ganglia right cerebellum. Expected intracranial vascular flow voids are preserved. Diffuse prominence of perivascular spaces. Incidental prominent arachnoid granulation in the right frontal lobe. Calvarial bone marrow signal is within normal limits. New 9 millimeter focus of susceptibility artifact along the right [employer] P3 segment region without definite aneurysm seen on the same day MRA head which was limited by motion artifact. No pathologic enhancement of the brain parenchyma, meninges or skull base. Impression: 1. Small acute ischemic infarct in the right cerebral peduncle. 2. Moderate parenchymal volume loss and chronic small-vessel ischemic changes. 3. Chronic lacunar infarcts in the left gisselle josh, left basal ganglia, right cerebellum. 4. New 9 mm focus of susceptibility artifact along the right [employer] P3 segment region without definite aneurysm seen on the same day MRA head which was limited by motion artifact. CTA head is recommended to exclude aneurysm. Dictated by Hai Mistry MD @ 07/27/2024 9:49:28 PM (Electronically Signed)
[2024-07-27 07:02] LABS: Blood Urea Nitrogen* 46 mg/dL (7-30); Estimated Glomerular Filt Rate 12 ml/min
[2024-07-27 07:03] LABS: Anion Gap 13 mEq/L (7-15); Calcium* 9.7 mg/dL (8.4-10.6); Carbon Dioxide* 22 mmol/L (20-32); Glucose* 100 mg/dL (60-115); Magnesium* 1.9 mg/dL (1.5-2.6); Phosphorus* 4.9 mg/dL (2.5-4.5)
[2024-07-27 07:14] LABS: NT Pro B Type NatriureticPept* 1970 pg/mL (See Note)
[2024-07-27 07:48] LABS: Hemoglobin A1C* 5.8 % (0-5.6)
[2024-07-27] MEDS: ASPIRIN EC 325 MG TABLET PO (09:11)
[2024-07-27] MEDS: timoloL maleate 0.5 % 1 DROP EYE-BOTH ×2 (09:11→21:29)
[2024-07-27] MEDS: METOPROLOL TARTRATE 25 MG TABLET PO (09:11)
[2024-07-27] MEDS: ATORVASTATIN CALCIUM 40 MG TABLET 80 MG PO (09:11)
--- NOTE | 2024-07-27 10:39 | PM.IMPN1 ---
Assessment and Plan Assessment and plan (1) Acute right-sided muscle weakness: Problem comment: stressor (fatigue or infection) vs extension of previous stroke? awaiting new MR. No source of infection noted. worse 616 than 615 end of day. -continue with ASA 325 mg po daily. -MRI/MRA pending -PT, OT consultation, including to reassess cognition Status: Acute (2) Hemiparesis affecting right side as late effect of cerebrovascular accident (CVA): Problem comment: -acute on chronic. stressor (fatigue or infection) vs extension of previous stroke? awaiting new MR. No source of infection noted. worse 616 than 615 end of day. -continue with ASA 325 mg po daily. -MRI/MRA pending -PT, OT consultation, including to reassess cognition Status: Acute (3) History of ischemic stroke: Problem comment: -ischemic stroke in 2014, followed by 3 months of PT/rehab. -patient states that she almost does not have any residual deficits from her previous stroke. -on aspirin 325 mg and atorvastatin 40 at home. Status: Acute (4) CKD stage 5 secondary to hypertension: Problem comment: -her baseline creatinine is 4.1; she has a glomerular filtration rate of 11 by MDRD giving her stage 5 chronic kidney disease - worsening kidney function this year; creatinine now up to 4s and even 5s - kidney biopsy consistent with mostly hypertension damage as opposed to diabetes despite nephrotic range urine protein; likely to progress to end stage kidney disease - she is working with [facility] for transplant evaluation; possibly doing a shared partner transplant with her sister as a live donor Status: Chronic (5) JAJA on CPAP: Problem comment: -asked patient to bring her home CPAP. Status: Chronic (6) Diabetes: Problem comment: - Hemoglobin A1c well managed - accuchecks and SSI - continue Januvia Status: Acute (7) Hypertension: Problem comment: hold metoprolol Status: Acute (8) Hyperlipidemia: Problem comment: continue atorvastatin Status: Chronic (9) Cerebral aneurysm: Problem comment: -Cerebral MRA at this admission showed at small 3 mm focal outpouching arising from the ophthalmic segment of the right intracranial ICA directed superiorly may represent a prominent infundibulum or tiny aneurysm. Given the size, radiologist recommends an interval follow-up in 6-12 months to confirm stability. Also to consider consultation with neurointerventional radiology for follow-up. -radiologist recommendation: Outpatient consultation with the [facility] Neuro[facility]ventional [facility] can be arranged by calling [phone]. -is already following neurology services as an outpatient. Status: Suspected Subjective Date Seen: 07/27/24 Interval history: Daily Progress Note - Hospital #: 1 CC: current/baseline stroke sequela seem worse in the last 2-3 days (right hand weakness, facial droop, right leg weakness) 24 HOUR UPDATE: Sarah seemed worse this morning. The notes and exam seem to indicate her symptoms were resolving. However this am, her right arm is tightly contracted against her torso, essentially unuseable. This is much different than last night. Her speech is slow and drawn out - again worse than last night. I repeated a stat scan this morning looking for hemorrhage. neg except baseline deficits already known. awaiting MRA and MRI for vessel and brain tissue study. 68-year-old woman with a history of a left pontine stroke and residual right-sided weakness who presents with worsening of the right sided weakness that I suspect is secondary to recrudescence of stroke in the setting of acute illness. Her fatigue from increased activity may also be contributing. I recommend workup for electrolyte imbalances and infections. I also recommend an MRI of the brain to rule out a new ischemic stroke. CT of the head does not show any new changes. Notable Labs, Micro, Rads, Interventions: Blood glucose is 170-136 Blood pressure 152/97 has received a fluid bolus. Total white count 12.25 - down a little from yesterday 13.26 Hemoglobin stable, platelet stable and unremarkable PH normal. Electrolytes are normal Stage 5 kidney disease known, stable. BUN 46, creatinine 4.0 A1c 5.8 BNP 1900 from a baseline of 389 last fall No blood cultures pending. Objective: Quiet, flat affect Vitals: stable, allow permissive htn see above Lungs: Clear. Cardiac: S1S2. Neuro: contracted spastic right arm. right sided facial droop. weakness is about baseline in the right leg. speech is clear but drawn out and articulation seems worse. Disposition/Potential discharge - Likely will need acute rehab Today I spent 50minutes seeing the patient, reviewing Expanse and EPIC notes/diagnostics, discussing the care plan with our care time that includes social work, PT/OT, pharmacy, RT, custodial and documenting my impressions and plan in the medical record. Exam Const: Vital Signs, click to edit/add: Vital Signs - 24 hr 07/26/24 11:23 07/26/24 11:30 07/26/24 11:37 Temperature 98.7 F Pulse Rate 62 Pulse Rate [Left R adial] Pulse Rate [Pulse Oximeter] 63 Respiratory Rate 16 20 Blood Pressure Blood Pressure [Le ft Arm] Blood Pressure [Ri ght Upper Arm] 164/114 H Pulse Oximetry 97 97 95 Oxygen Delivery Me thod Room Air 07/26/24 11:54 07/26/24 12:00 07/26/24 12:03 Temperature Pulse Rate 62 59 L 60 Pulse Rate [Left R adial] Pulse Rate [Pulse Oximeter] Respiratory Rate 18 Blood Pressure 134/91 H Blood Pressure [Le ft Arm] Blood Pressure [Ri ght Upper Arm] Pulse Oximetry 97 97 96 Oxygen Delivery Me od 07/26/24 12:15 07/26/24 12:22 07/26/24 12:23 Temperature Pulse Rate 60 61 66 Pulse Rate [Left R adial] Pulse Rate [Pulse Oximeter] Respiratory Rate 15 Blood Pressure 143/95 H Blood Pressure [Le ft Arm] Blood Pressure [Ri ght Upper Arm] Pulse Oximetry 98 97 97 Oxygen Delivery Me od 07/26/24 12:30 07/26/24 12:42 07/26/24 12:45 Temperature Pulse Rate 62 63 Pulse Rate [Left R adial] Pulse Rate [Pulse Oximeter] Respiratory Rate 13 16 Blood Pressure 150/94 H Blood Pressure [Le ft Arm] Blood Pressure [Ri ght Upper Arm] Pulse Oximetry 97 97 [facility] 07/[facility] 13:02 07/26/24 13:18 07/26/24 13:22 Temperature Pulse Rate 62 Pulse Rate [Left R adial] Pulse Rate [Pulse Oximeter] Respiratory Rate 24 19 16 Blood Pressure 147/87 H 145/100 H Blood Pressure [Le ft Arm] Blood Pressure [Ri ght Upper Arm] Pulse Oximetry 98 Oxygen Delivery Me od 07/26/24 17:11 07/26/24 17:14 07/26/24 17:17 Temperature 98.4 F 98.2 F Pulse Rate Pulse Rate [Left R adial] 54 L Pulse Rate [Pulse Oximeter] 59 L Respiratory Rate 16 16 16 Blood Pressure Blood Pressure [Le ft Arm] 154/96 H 175/107 H Blood Pressure [Ri ght Upper Arm] Pulse Oximetry 98 97 97 [facility] Room Air Room Air 07/26/24 18:55 07/26/24 20:00 07/26/24 23:00 Temperature 98.1 F Pulse Rate 60 Pulse Rate [Left R adial] Pulse Rate [Pulse Oximeter] 57 L Respiratory Rate 18 Blood Pressure Blood Pressure [Le ft Arm] 154/91 H Blood Pressure [Ri ght Upper Arm] Pulse Oximetry 94 93 Oxygen Delivery Me thod Room Air 07/26/24 23:00 07/26/24 23:00 07/26/24 23:25 Temperature 98.2 F Pulse Rate 55 L Pulse Rate [Left R adial] 54 L Pulse Rate [Pulse Oximeter] 54 L Respiratory Rate 18 16 Blood Pressure Blood Pressure [Le ft Arm] 141/91 H Blood Pressure [Ri ght Upper Arm] Pulse Oximetry 93 Oxygen Delivery [facility] Room Air 07/27/24 03:58 07/27/24 07:00 07/27/24 07:00 Temperature 98.3 F 98.0 F Pulse Rate Pulse Rate [Left R adial] 57 L Pulse Rate [Pulse Oximeter] 51 L Respiratory Rate 16 14 14 Blood Pressure Blood Pressure [Le ft Arm] 157/87 H 155/91 H Blood Pressure [Ri ght Upper Arm] Pulse Oximetry 98 97 97 Oxygen Delivery [facility] Room Air Room Air Room Air 07/27/24 07:00 07/27/24 10:09 Temperature Pulse Rate 57 L Pulse Rate [Left R adial] Pulse Rate [Pulse Oximeter] Respiratory Rate 14 Blood Pressure Blood Pressure [Le ft Arm] Blood Pressure [Ri ght Upper Arm] Pulse Oximetry [facility]xygen [facility] Labs: Laboratory Results - last 24 hr 07/26/24 07/26/24 07/26/24 11:19 12:06 13:18 WBC 13.26 H RBC 4.61 Hgb 13.5 Hct 41.1 MCV 89 MCH 29 MCHC 33 RDW Coeff of Leanne 14.1 Plt Count 331 Neut % (Auto) 80.9 H Lymph % (Auto) 11.8 L Hartley % (Auto) 5.4 Eos % (Auto) 1.1 Baso % (Auto) 0.6 Neut # (Auto) 10.70 H Lymph # (Auto) 1.60 Hartley # (Auto) 0.70 Eos # (Auto) 0.10 Baso # (Auto) 0.10 Abs Immat Gran (auto) 0.00 Imm/Tot Granulo (auto) 0.2 VBG pH VBG pCO2 VBG pO2 VBG HCO3 Sodium 142 Potassium 4.1 Chloride 107 Carbon Dioxide 23 Anion Gap 12 BUN 42 H Creatinine 4.1 H Estimated Creat Clear 10.24 Estimated GFR 11 Glucose 126 H Hemoglobin A1c Lactate 1.6 Calcium 10.1 Phosphorus Magnesium Total Bilirubin 1.0 AST 38 H ALT 46 H Alkaline Phosphatase 61 C-Reactive Protein < 0.5 L NT-Pro-B Natriuret Pep Total Protein 7.8 Albumin 4.5 Urine Color Yellow Urine Appearance Clear Urine pH 6.0 Ur Specific [place] 1.025 Urine Protein 3+ A Urine Glucose (UA) Trace A Urine Ketones Negative Urine Blood 1+ A Urine Nitrite Negative Urine Bilirubin Negative Urine Urobilinogen 0.2 Ur Leukocyte Esterase Negative Urine RBC 0-2 Urine WBC 0-2 Urine WBC Clumps None Ur Squamous Epith Cells Few Urine Bacteria None Fine Granular Casts Few A SARS-CoV-2 (PCR) Negative SARS-CoV-2 Influenza Type A (PCR) Negative PCR FLU A Influenza Type B (PCR) Negative PCR FLU B RSV (PCR) Negative PCR RSV 07/27/24 06:01 WBC 12.25 H RBC 4.33 Hgb 12.7 Hct 38.9 MCV 90 MCH 29 MCHC 33 RDW Coeff of Leanne Plt Count 319 Neut % (Auto) Lymph % (Auto) Hartley % (Auto) Eos % (Auto) Baso % (Auto) Neut # (Auto) Lymph # (Auto) Hartley # (Auto) Eos # (Auto) Baso # (Auto) Abs Immat Gran (auto) Imm/Tot Granulo (auto) VBG pH 7.362 VBG pCO2 43 VBG pO2 < 30.1 VBG HCO3 24 Sodium 140 Potassium 3.9 Chloride 105 Carbon Dioxide 22 Anion Gap 13 BUN 46 H Creatinine 4.0 H Estimated Creat Clear 10.50 Estimated GFR 12 Glucose 100 Hemoglobin A1c 5.8 H Lactate 1.1 Calcium 9.7 Phosphorus 4.9 H Magnesium 1.9 Total Bilirubin AST ALT Alkaline Phosphatase C-Reactive Protein NT-Pro-B Natriuret Pep 1970 H Total Protein Albumin Urine Color Urine Appearance Urine pH Ur Specific [place] Urine Protein Urine Glucose (UA) Urine Ketones Urine Blood Urine Nitrite Urine Bilirubin Urine Urobilinogen Ur Leukocyte Esterase Urine RBC Urine WBC Urine WBC Clumps Ur Squamous Epith Cells Urine Bacteria Fine Granular Casts SARS-CoV-2 (PCR) Influenza Type A (PCR) Influenza Type B (PCR) RSV (PCR)
--- NOTE | 2024-07-27 10:48 | CRLHL7_ITS ---
For Patients: As a result of the Century Cures Act, medical imaging exams and procedure reports are released immediately into your electronic medical record. You may view this report before your referring provider. If you have questions, please contact your health care provider. INDICATION: Worsening altered mental status. TECHNIQUE: CT of the head without contrast. Coronal and sagittal reformats are included. COMPARISON: Head CT from 07/26/2024. FINDINGS: No CT evidence of acute cortical infarct. No loss of romero white matter differentiation. No hyperdense vessels to suggest intracranial thrombus. No acute intracranial hemorrhage. No mass effect or midline shift. No hydrocephalus or extra-axial collections. Chronic lacunar infarct at the left caudal thalamic groove. [place] chronic infarct within the left paramedian josh. Patchy hypoattenuation throughout the supratentorial white matter, typical for microvascular ischemic change. Moderate generalized parenchymal volume loss. Intracranial vascular calcifications. No acute osseous abnormalities. Mastoid air cells and paranasal sinuses are clear. Normal soft tissues. IMPRESSION: IMPRESSION:1. No CT evidence of acute cortical infarct. No acute intracranial hemorrhage. No other acute intracranial findings. Stable chronic findings as above. Please note that all CT scans at this facility use dose modulation, iterative reconstruction, and/or weight-based dosing when appropriate to reduce radiation dose to as low as reasonably achievable. Dictated by Aiden Camejo MD @ 07/27/2024 11:53:02 AM (Electronically Signed)
[2024-07-27] MEDS: SITAGLIPTIN PHOSPHATE 50 MG TABLET 25 MG PO (11:02)
[2024-07-27] MEDS: SODIUM CHLORIDE 0.9 % (FLUSH) 10 ML SYRINGE 5 ML IVF ×2 (11:20→21:29)
[2024-07-27] MEDS: 0.9 % SODIUM CHLORIDE 500 ML 500 ML IV (12:21)
--- NOTE | 2024-07-27 13:45 | PC.SOCIAL ---
Addendum entered by JERRELL Randle 07/27/24 16:53: Discharge planning: turntable worker faxed pt's ARU referral to [facility] this afternoon at fax number #[phone]. Social work to follow-up as needed. Original Note: Discharge planning: Pt is being recommended for Acute Rehab at discharge from the hospital. turntable worker spoke to the pt and her and they would like for the pt to go to [facility] again(pt was there last October after a stroke for Acute Rehab). turntable worker reached out to Admissions at [facility] and they said they are tight on beds this week, but to go ahead and send the referral. turntable worker will fax over the referral to [facility] this afternoon. Social work to follow-up as needed.
--- NOTE | 2024-07-27 14:20 | NUTR.NU ---
RDN with diet education related to renal diet order. Patient admitted with weakness, found to have Cerebral aneurysm. Medical history includes CVA with facial hemiparesis, ischemic stroke, diabetes mellitus, and CKD stage 5 secondary to hypertension. Current weight 149lb 8oz; height 5ft 2in; BMI 27.3 kg/m2. Weight loss noted within 9 months of ~20lbs or 12.3%. RDN visited with patient and whom reports good appetite. Pt and report weight has been stable recently, however with diet changes and hemiparesis weight loss has been noted. Patient reports she is eating normal amounts. Current diet is Renal. Intakes since admit have been adequate at 75%. RDN offered diet education related to renal diet, patient and declined at this time. Patient may need acute rehab at discharge. No nutrition interventions at this time. RDN will continue to monitor and follow-up prn.
--- NOTE | 2024-07-27 16:37 | CRLHL7_ITS ---
For Patients: As a result of the Century Cures Act, medical imaging exams and procedure reports are released immediately into your electronic medical record. You may view this report before your referring provider. If you have questions, please contact your health care provider. Indication: Possible new CVA. Right-sided weakness. Technique: [id number] and Gadolinium bolus MR angiogram of the neck with 3D MIP reconstructions provided. All measurements are based on NASCET criteria. Postcontrast images obtained after administration of 20 cc Dotarem Gadolinium-based IV contrast. Comparison: No prior studies available for comparison at this institution. Findings: Both carotid systems are unremarkable in the neck. No evidence for hemodynamically significant internal carotid artery stenosis by NASCET criteria. The cervical segments of both vertebral arteries are patent. The visualized portions of the aortic arch, great vessel origins and proximal subclavian arteries are unremarkable. Impression: Unremarkable MRA of the neck as far as visualized. Dictated by Hai Mistry MD @ 07/27/2024 9:43:54 PM (Electronically Signed)
--- NOTE | 2024-07-27 17:23 | CRLHL7_ITS ---
For Patients: As a result of the Century Cures Act, medical imaging exams and procedure reports are released immediately into your electronic medical record. You may view this report before your referring provider. If you have questions, please contact your health care provider. Indication: CVA Technique: 3D [id number] MR angiogram of the [id number]-[id number] with 3-dimensional MIP projections were submitted. Comparison: MRA 10/18/2023 Findings: Examination is limited by motion artifact. Mild focal narrowing of the left A2 JUAN F segment. Similar 3-4 mm outpouching from the ophthalmic segment of the right ICA may represent aneurysm versus infundibulum. Mild narrowing of a proximal left M2 inferior division branch. The visualized first and second order intracranial vessels are otherwise unremarkable. No occlusion/filling defect or acquired arterial stenosis identified. No vascular malformation seen. Impression: 1. No evidence of proximal arterial occlusion, dissection, or vascular malformation. 2. Mild intracranial atherosclerotic narrowing. 3. Similar 3-4 mm outpouching from the ophthalmic segment of the right ICA may represent aneurysm versus infundibulum. Dictated by Hai Mistry MD @ 07/27/2024 9:21:48 PM (Electronically Signed)
--- NOTE | 2024-07-27 17:53 | PC.NURSE ---
Patient up with assist of 1-2 and claudette steady or 2 assist gait belt/walker and AFO to RLE. Patient Alert and oriented. Patient is tolerating a renal diet, feeds self independently. Patient will receive MRI @ . She has a patent PIV Right forearm. Patient has glasses and hearing aids, NSR on media monitor. Patient CMS intact, no skin issues noted.
[2024-07-27] MEDS: LATANOPROST 0.005% OPHTH 1 DROP EYE-BOTH (21:28)
[2024-07-28] VITALS (9 sets, daily range): BP systolic 129–165; BP diastolic 88–101; PULSE 52–64; RESP 16–20; TEMP 35.9–36.9; O2SAT 98–100
--- NOTE | 2024-07-28 04:07 | CRLHL7_ITS ---
For Patients: As a result of the Century Cures Act, medical imaging exams and procedure reports are released immediately into your electronic medical record. You may view this report before your referring provider. If you have questions, please contact your health care provider. INDICATION: Unresponsive COMPARISON: Studies dating back to October 19, 2023 and most recently July 27, 2024 TECHNIQUE: CT examination of the head was performed as axial sections without intravenous contrast. Images were obtained from the vertex of the skull through the skull base. Please note that all CT scans at this facility use dose modulation, iterative reconstruction, and/or weight-based dosing when appropriate to reduce radiation dose to as low as reasonably achievable. FINDINGS: The brain shows no sign of mass lesion, mass effect, hemorrhage, or edema. There are involutional changes. There is moderate to severe cortical atrophy and there is moderate to severe white matter disease. There is no hydrocephalus. Nonacute appearing infarcts noted. These are primarily subcortical on the left and left paramedian thalamic. Intracranial atherosclerosis similar in appearance to the prior exams. The visualized portions of the orbits are normal in appearance. The osseous structures are normal in appearance with no sign of abnormality in the skull base or calvarium. IMPRESSION: Involutional changes consistent with atrophy and white matter disease. Nonacute appearing subcortical and pontine infarcts similar to prior studies. No interval change or acute focal finding. Please note that all CT scans at this facility use dose modulation, iterative reconstruction, and/or weight-based dosing when appropriate to reduce radiation dose to as low as reasonably achievable. Dictated by Abilio Verma MD @ 07/28/2024 4:52:46 AM (Electronically Signed)
--- NOTE | 2024-07-28 04:11 | PM.CCEN ---
Critical Care Event Note Summary Time Seen by Provider: 04:02 Date Seen: 07/28/24 Code activated: No Narrative: The patient is a 68-year-old female with past medical history notable for left ptine strokes with residual right-sided weakness who presented with worsening right-sided weakness and facial droop. MRI of the brain was obtained which did not show a new stroke although there was evidence of a small aneurysm versus prominent infundibulum in the ophthalmic section of the right intracranial ICA. I was notified of that the patient had become unresponsive. Previously was following commands. She was unresponsive to sternal rub or nailbed pressure. Blood sugar was 101. Vitals were unchanged. She had no tonic-clonic movements. GENERAL: vital signs reviewed, chronically ill-appearing, in no distress on CPAP HEENT: pupils are unequal right > left (4 mm vs 2 mm)and round, eyes were deviated to the right with occasional nystagmus, eyes remain deviated to the right with doll's head maneuver HEART: Regular rate and rhythm without any rubs, murmurs or gallops. LUNGS: Clear to auscultation bilaterally with good air movement throughout ABDOMEN: Observation from nurse assisted exam, abdomen appears soft, nontender, and nondistended with Positive bowel sounds noted. EXTREMITIES: Decreased muscle bulk SKIN: Observed warm and dry with color normal NEURO: Right-sided hemiparesis with some spasticity in the right arm without tonic clonic movements Assessment and Plan: Suspected seizure activity/non-convulsive status epileptiocus Unresponsiveness Differential includes intracranial bleed, metabolic encephalopathy, toxic encephalopathy, hypercapnia Blood sugar 101 Check CBC, BMP, lactate Stat CT head to look for intracranial bleed - on my review no large bleed or midline shift, but some hyperdensity in frontal lobe Lorazepam 1 mg IV x 1 (after 1 mg) deviation of eyes to rights resolved, but still unresponsive. Will give an additional 1 mg of lorazepam Keppra 4000 mg x 1 (60 mg/kg over 15-20 minutes) If patient does not improve will need to transfer with facility that can provide continuous EEG The patient was seen as an interactive telehealth visit. Telehealth Visit: Today's History and Physical is provided via interactive telehealth by Dr. Louis Sawant MD. Patient is located at [facility]. Provider is located at [facility]. Nursing staff assisted with the patient's exam. The visit being done today meets criteria for a telehealth visit Camera Start Time: 402 Camera End Time: 407 Reassessment Camera Start Time: 443 Camera End Time: 451 Total time of direct management of suspected status epilepticus [id number] Medical Complexity: High ~~~~~~~~~~~~~~~~ Dr. Louis Sawant This case had a high probability of a clinically significant, sudden, or life threatening deterioration of this patient's condition which required my full and direct attention, intervention and personal management. Critical care time: 30 - 74 mins
[2024-07-28] MEDS: LORazepam 2 MG/ML inj 1 MG IVP ×2 (04:13→04:50)
[2024-07-28] MEDS: 0.9 % SODIUM CHLORIDE 250 ml IV ×2 (04:34→12:44)
[2024-07-28] MEDS: LEVETIRACETAM 1,000 mg/100 ml INFUSION 2000 MG IVPB ×2 (04:52→05:01)
[2024-07-28 05:05] LABS: HCO3 VBG 22 mmol/L (21-28); PCO2 VBG 41 mmHG (40-50); PO2 VBG 45.4 mmHG (25-47); pH VBG 7.326 (7.32-7.43)
[2024-07-28 05:07] LABS: Basophils Percent Auto 0.5 % (0.0-3.0); Hematocrit 38.3 % (33.0-51.0); Hemoglobin* 12.6 gm/dL (12.0-16.0); Immature Granulocytes Pct Auto 0.1 %; Lymphocytes Percent Auto 18.2 % (20-44); Mean Corpuscular HGB Conc 33 gm/dL (32-36); Mean Corpuscular Hemoglobin 29 pg (26-34); Mean Corpuscular Volume 89 fL (80-100); Monocytes Percent Auto 7.6 % (0.0-11.0); Neutrophils Percent Auto 71.6 % (42.0-72.0); Platelet Count* 256 K/uL (140-440); RDW Coefficient of Variation % 13.9 % (11.5-15.5); Red Blood Count 4.29 m/uL (4.00-5.20); White Blood Count* 13.36 K/uL (4.50-11.00)
[2024-07-28 05:08] LABS: Slide Review Reflex No
[2024-07-28 05:10] LABS: Lactate* 1.7 mmol/L (0.5-1.9)
[2024-07-28 05:26] LABS: Chloride* 107 mmol/L (96-114); Potassium* 3.8 mmol/L (3.6-5.1); Sodium* 139 mmol/L (135-149)
[2024-07-28 05:29] LABS: Anion Gap 13 mEq/L (7-15); Blood Urea Nitrogen* 51 mg/dL (7-30); Carbon Dioxide* 19 mmol/L (20-32); Creatinine* 3.7 mg/dL (0.5-1.5); Est. Creatinine Clearance* 11.35; Estimated Glomerular Filt Rate 13 ml/min; Glucose* 104 mg/dL (60-115)
--- NOTE | 2024-07-28 06:51 | PC.NURSE ---
End of shift report [id number]: VSS. Denies pain. Afebrile. Pt is calm and cooperative. Pt continues to have the contraction of her right arm and right eye droop at the beginning of the shift and neuros were intact. At 0300 vital signs the keno writer / runner went to do vital signs the patient nodded and said ?yes? when keno writer / runner let pt know she will be doing vitals. After vitals and a brief change keno writer / runner noticed the pt was not able to respond to keno writer / runner or open eyes. Sternal rub was completed and pt remained unresponsive. Mars TIDWELL ([facility]) was called?and assessed pt on the monitor. Pts right pupil was greater than the left with right deviation. Keppra and ativan was given per MD orders. After medication administration the right eye deviation resolved and the pupils are now fixed straight ahead and the?left pupil is smaller than the right and nonreactive to light. Inspector Aligning called Elías to provide an update. Bed alarm on, call light within reach.?
--- NOTE | 2024-07-28 09:03 | REH.OT ---
Pt. status has changed. OT/PT on hold. Pt. to be transferred.
[2024-07-28] MEDS: LACTATED RINGERS 1000 ML 1,000 ML 75 ML IV (09:26)
[2024-07-28] MEDS: SODIUM CHLORIDE 0.9 % (FLUSH) 10 ML SYRINGE 5 ML IVF (10:00)
[2024-07-28] MEDS: LEVETIRACETAM 1,000 mg/100 ml INFUSION 500 MG IVPB (10:00)
--- NOTE | 2024-07-28 11:02 | PC.NURSE ---
Handoff - Pt not alert and remained unarousable during shift to verbal and painful stimuli. Pt observed to make slight movements but appeared unable to follow direction and did not acknowledge RN presence. Tolerating home CPAP with no additional O2 needs. RN completed handoff to CCU RN.
--- NOTE | 2024-07-28 11:40 | P.DS_ITS ---
DS: Providers Provider Date Seen: 07/28/24 Date of admission: 07/27/24 15:50 Primary care physician: French Huddleston MD Admitting Clinician: Quin Gómez MD Consults: 07/26/24 16:08 Consult to Occupational Therapy [CONS] Routine Comment: Reason(s) for OT Consult:: Evaluate and Treat Any Restrictions?:: No Restrictions Consult to Physical Therapy [CONS] Routine Comment: Reason(s) for PT Consult:: Evaluate and Treat Any Restrictions?:: No Restrictions Consult to Sports Statistician [CONS] Routine Comment: Reason for Consult:: Discharge Planning Needs 07/27/24 12:36 Consult to Speech Therapy [CONS] Routine Comment: cva Reason(s) for Speech Consult:: Speaking Difficulty Attending Physician on discharge: Jade Regan [facility], [facility]C [facility] Date of Discharge: 07/28/24 DS: Diagnosis Discharge Diagnosis (1) Altered mental status: Status: Acute Problem details: Onset early intervention specialist of 07/28, reported as unresponsive, gaze deviated to right side, nystagmus, right pupil larger than left as evaluated by tele hospitalist. Was started on loading dose of Keppra and given IV Ativan. Repeat CT head without acute findings, no significant interval changes. On reeval, remains obtunded. Resists against opening of eyelids. Gaze remains to the right with mild nystagmus and unequal but sluggish responsive pupils. PROM met with extension and resistance RUE/RLE. Left side flaccid. Breathing on her own. Vitally stable MRI head from 07/27 shows small acute ischemic infarct in the right cerebral peduncle. Query Veronica syndrome? Seizure activity? Continue IV Keppra 500 mg b.i.d., p.r.n. IV Ativan. Discussed with Dr. Mello, [facility]. Accepts for transfer, further neurological workup, EEG (2) Acute right-sided muscle weakness: Status: Acute Problem details: stressor (fatigue or infection) vs extension of previous stroke? No source of infection noted. CXR unremarkable. UA unremarkable. CT chest abdomen pelvis without evidence of infectious process. Does have a leukocytosis. BC/UC ordered. Single dose ceftriaxone given on 07/28 in light of worsening status. Progressive - worse 07/27 than 07/26 end of day noted -continue with ASA 325 mg po daily -MRI/MRA reviewed, noted in data, acute and chronic findings -PT, OT consulted, including to reassess cognition - unable to complete with change in status (3) Hemiparesis affecting right side as late effect of cerebrovascular accident (CVA): Status: Acute Problem details: -acute on chronic -continue with ASA 325 mg po daily (4) History of ischemic stroke: Status: Acute Problem details: -ischemic stroke in 2014 - cluster of small infarcts in the left basal ganglia, treated with plavix and ASA -ischemic stroke October 2023 - small to moderate acute to early subacute infarction within the left hemipons. Punctate acute to subacute infarction within the right temporooccipital region. -3 months of PT/rehab -patient states that she almost does not have any residual deficits from her previous stroke. -on aspirin 325 mg and atorvastatin 40 at home, no longer on plavix (5) CKD stage 5 secondary to hypertension: Status: Chronic Problem details: - her baseline creatinine is 4.1; she has a glomerular filtration rate of 11 by MDRD giving her stage 5 chronic kidney disease - worsening kidney function this year; creatinine now up to 4s and even 5s - kidney biopsy consistent with mostly hypertension damage as opposed to diabetes despite nephrotic range urine protein; likely to progress to end stage kidney disease - she is working with [facility] for transplant evaluation; possibly doing a shared partner transplant with her sister as a live donor (6) JAJA on CPAP: Status: Chronic Problem details: -using CPAP (7) Diabetes: Status: Acute Problem details: - Hemoglobin A1c well managed, 5.8 - accuchecks and SSI - continue Januvia (8) Hypertension: Status: Acute Problem details: hold metoprolol - allowing for permissive HTN in setting of worsening symptoms, unclear if stroke (9) Hyperlipidemia: Status: Chronic Problem details: continue atorvastatin (10) Cerebral aneurysm: Status: Suspected Problem details: -Cerebral MRA at this admission showed at small 3 mm focal outpouching arising from the ophthalmic segment of the right intracranial ICA directed superiorly may represent a prominent infundibulum or tiny aneurysm. Given the size, radiologist recommends an interval follow-up in 6-12 months to confirm stability. Also to consider consultation with neurointerventional radiology for follow-up. -New 9 mm focus of susceptibility artifact along the right ROOM SERVICE MANAGER P3 segment region without definite aneurysm seen on the same day MRA head which was limited by motion artifact. CTA head is recommended to exclude aneurysm -radiologist recommendation: Outpatient consultation with the [facility] Neuro[facility] can be arranged by calling [phone]. -is already following neurology services as an outpatient. (11) Pulmonary nodules: Status: Acute Problem details: Incidental finding, outpatient follow-up with repeat chest CT in 1 year or sooner if necessary DS: Summary Hospital Course Hospital Course: Course of care and details as noted above. Given worsening neurological status, unresponsive/obtunded with right deviated gaze, nystagmus, right> left pupil size patient was changed to CCU status. Discussed findings and concern with Dr. Mccrary, [facility] following her reassessment. No neuro beds available in [facility]. Discussed with Dr. Mello, accepting for transfer to [facility] for further neurological workup. Unable to get stat repeat MRI/MRA prior to transfer. Continuing Keppra 500 mg IV b.i.d., Ativan p.r.n.. Allowing for permissive hypertension at this time, unknown if evolving stroke. Patient has been protecting her airway, remains vitally stable. Remainder of chronic medical comorbidities were monitored and managed with home medications. Status at Discharge Cognitive/behavioral status at discharge: Obtunded/unresponsive Time Spent with Patient Time attestation: Total time spent providing and/or coordinating discharge services: Time spent: Greater than 30 minutes Exam Narrative: Exam Narrative: PHYSICAL EXAM General: Attended, flinches to sternal rub Cardiovascular: RRR Pulmonary: No dyspnea Neurological: Right deviated gaze, nystagmus, R>L pupil, sluggish to respond. RUE/RLE extends with PROM, left side flaccid. Unable to follow commands Skin: Warm, dry. Const: Vital Signs, click to edit/add: Vital Signs - 24 hr 07/27/24 14:40 07/27/24 14:43 07/27/24 14:43 Temperature 98.1 F Pulse Rate Pulse Rate [Left R adial] 79 79 Pulse Rate [Pulse Oximeter] 79 79 Pulse Rate [Right Radial] Respiratory Rate 14 14 14 Blood Pressure [Le ft Arm] 152/97 H Pulse Oximetry 97 97 Oxygen Delivery Me thod Room Air 07/27/24 14:54 07/27/24 19:00 07/27/24 22:03 Temperature 98.1 F Pulse Rate 63 Pulse Rate [Left R adial] Pulse Rate [Pulse Oximeter] 68 Pulse Rate [Right Radial] Respiratory Rate 16 16 Blood Pressure [Le ft Arm] 156/102 H Pulse Oximetry 95 95 Oxygen Delivery Me thod Room Air Room Air 07/27/24 22:07 07/27/24 22:17 07/28/24 00:30 Temperature 98 F Pulse Rate 59 L Pulse Rate [Left R adial] Pulse Rate [Pulse Oximeter] 61 Pulse Rate [Right Radial] Respiratory Rate 16 16 Blood Pressure [Le ft Arm] 158/102 H Pulse Oximetry 94 Oxygen Delivery Me thod CPAP 07/28/24 03:00 07/28/24 07:00 07/28/24 08:52 Temperature 97.8 F Pulse Rate 55 L Pulse Rate [Left R adial] Pulse Rate [Pulse Oximeter] 64 Pulse Rate [Right Radial] Respiratory Rate 16 16 Blood Pressure [Le ft Arm] 165/98 H Pulse Oximetry 98 99 Oxygen Delivery Me thod CPAP CPAP 07/28/24 10:00 07/28/24 11:00 07/28/24 11:17 Temperature 98.5 F 97.2 F L Pulse Rate 55 L Pulse Rate [Left R adial] Pulse Rate [Pulse Oximeter] Pulse Rate [Right Radial] 52 L 55 L Respiratory Rate 16 17 Blood Pressure [Le ft Arm] 129/88 159/95 H Pulse Oximetry 99 99 Oxygen Delivery Me thod CPAP CPAP DS: Data Data Completed and Pending Pending studies at discharge: Blood culture, urine culture Labs on day of discharge: Labs from last 24 hours 07/28/24 05:00 WBC 13.36 H RBC 4.29 Hgb 12.6 Hct 38.3 MCV 89 MCH 29 MCHC 33 RDW Coeff of Leanne 13.9 Plt Count 256 Neut % (Auto) 71.6 Lymph % (Auto) 18.2 L Dawes % (Auto) 7.6 Eos % (Auto) 2.0 Baso % (Auto) 0.5 Neut # (Auto) 9.60 H Lymph # (Auto) 2.40 Dawes # (Auto) 1.00 H Eos # (Auto) 0.30 Baso # (Auto) 0.10 Abs Immat Gran (auto) 0.00 Imm/Tot Granulo (auto) 0.1 VBG pH 7.326 VBG pCO2 41 VBG pO2 45.4 VBG HCO3 22 Sodium 139 Potassium 3.8 Chloride 107 Carbon Dioxide 19 L Anion Gap 13 BUN 51 H Creatinine 3.7 H Estimated Creat Clear 11.35 Estimated GFR 13 Glucose 104 Lactate 1.[address] head 1: Attestation: I have reviewed the pertinent imaging results. Radiologist's impression: Generalized parenchymal volume loss. No acute or subacute cortically based infarct. There is some asymmetric streak artifact across the middle cranial fossas. Near confluent white matter hypodensities may be related to chronic microvascular ischemia. Atherosclerosis. Density and ectasia of the basilar artery is similar to the previous exam. No mass or mass effect. Normal ventricles. No skull fractures. No worrisome focal bone lesion. IMPRESSION: No acute intracranial findings. No findings of an acute or subacute transcortical infarct. Moderate to severe white matter disease has a similar pattern to the previous exam. CT head 2: Attestation: I have reviewed the pertinent imaging results. Radiologist's impression: Studies dating back to October 19, 2023 and most recently July 27, 2024 TECHNIQUE: CT examination of the head was performed as axial sections without intravenous contrast. Images were obtained from the vertex of the skull through the skull base. Please note that all CT scans at this facility use dose modulation, iterative reconstruction, and/or weight-based dosing when appropriate to reduce radiation dose to as low as reasonably achievable. FINDINGS: The brain shows no sign of mass lesion, mass effect, hemorrhage, or edema. There are involutional changes. There is moderate to severe cortical atrophy and there is moderate to severe white matter disease. There is no hydrocephalus. Nonacute appearing infarcts noted. These are primarily subcortical on the left and left paramedian thalamic. Intracranial atherosclerosis similar in appearance to the prior exams. The visualized portions of the orbits are normal in appearance. The osseous structures are normal in appearance with no sign of abnormality in the skull base or calvarium. IMPRESSION: Involutional changes consistent with atrophy and white matter disease. Nonacute appearing subcortical and pontine infarcts similar to prior studies. No interval change or acute focal finding. Head MRA/neck MRA: Attestation: I have reviewed the pertinent imaging results. Radiologist's impression: Both carotid systems are unremarkable in the neck. No evidence for hemodynamically significant internal carotid artery stenosis by NASCET criteria. The cervical segments of both vertebral arteries are patent. The visualized portions of the aortic arch, great vessel origins and proximal subclavian arteries are unremarkable. Impression: Unremarkable MRA of the neck as far as visualized. Examination is limited by motion artifact. Mild focal narrowing of the left A2 JUAN F segment. Similar 3-4 mm outpouching from the ophthalmic segment of the right ICA may represent aneurysm versus infundibulum. Mild narrowing of a proximal left M2 inferior division branch. The visualized first and second order intracranial vessels are otherwise unremarkable. No occlusion/filling defect or acquired arterial stenosis identified. No vascular malformation seen. Impression: 1. No evidence of proximal arterial occlusion, dissection, or vascular malformation. 2. Mild intracranial atherosclerotic narrowing. 3. Similar 3-4 mm outpouching from the ophthalmic segment of the right ICA may represent aneurysm versus infundibulum. Brain MRI: Attestation: I have reviewed the pertinent imaging results. My impression: There is a 1.1 cm focus of diffusion restriction and T2 prolongation in the medial aspect of the right cerebral peduncle. No mass effect or midline shift. No hydrocephalus. Mild generalized parenchymal volume loss. Moderate chronic small vessel ischemic changes. Chronic lacunar infarct in the left gisselle josh, left basal ganglia right cerebellum. Expected intracranial vascular flow voids are preserved. Diffuse prominence of perivascular spaces. Incidental prominent arachnoid granulation in the right frontal lobe. Calvarial bone marrow signal is within normal limits. New 9 millimeter focus of susceptibility artifact along the right ROOM SERVICE MANAGER P3 segment region without definite aneurysm seen on the same day MRA head which was limited by motion artifact. No pathologic enhancement of the brain parenchyma, meninges or skull base. Impression: 1. Small acute ischemic infarct in the right cerebral peduncle. 2. Moderate parenchymal volume loss and chronic small-vessel ischemic changes. 3. Chronic lacunar infarcts in the left gisselle josh, left basal ganglia, right cerebellum. 4. New 9 mm focus of susceptibility artifact along the right ROOM SERVICE MANAGER P3 segment region without definite aneurysm seen on the same day MRA head which was limited by motion artifact. CTA head is recommended to exclude aneurysm. CT chest abdomen pelvis: Attestation: I have reviewed the pertinent imaging results. Radiologist's impression: CHEST Airway: Expiratory appearance of the airway. Lungs: Mild basilar atelectasis. There are a few scattered pulmonary nodules. For example see the 4 millimeter nodule on series 2, image 36 in both the right and left lungs. No consolidations. No edema or emphysema. Pleura: No pleural effusion. No pneumothorax. Lymph nodes: No thoracic adenopathy. Mediastinum: No pneumomediastinum. No mass. Heart and great vessels: Small pericardial effusion. Normal cardiac chamber size. Heavy [place] coronary calcified atherosclerotic plaques. No aortic aneurysm. Normal caliber main pulmonary artery. Chest wall: Right mastectomy. Left mastectomy with reconstruction including an implant. ABDOMEN AND PELVIS Liver: Normal noncontrast liver. Gallbladder and bile ducts: Normal gallbladder. No bile duct dilation. Pancreas: There are few scattered punctate calcifications along the periphery of the pancreas that may be related to a remote pancreatitis. No pancreatitis today. Spleen: Normal spleen size. Adrenal glands: Normal. Kidneys: Normal renal position. Mild bilateral renal atrophy. There is at least 1 left renal cyst that measures 1.4 centimeters. No contour deforming solid mass. No urinary tract dilation. Urinary bladder: Normal. Pelvis: No cyst or mass. Vessels: Atherosclerotic vascular calcifications. Retroaortic left renal vein. Bowel: No dilated or inflamed bowel. The appendix is not discretely seen. No substantial diverticular burden. Mild stool burden. Lymph nodes: No adenopathy. Peritoneum: No ascites. Abdominal wall: Small fat containing right inguinal hernia. No bowel containing hernia. BONES: Large Schmorl`s node in the superior endplate of L2. No acute or healing fracture. No focal bone lesions. IMPRESSION: 1. There are a few scattered pulmonary nodules. These could be infectious or inflammatory but there is not any large pneumonia. Recommend a follow-up chest CT in 1 year, or sooner depending on the patient`s oncologic history. 2. No infectious source identified in the abdomen or pelvis on this noncontrast examination. CXR: Attestation: I have reviewed the pertinent imaging results. Radiologist's impression: Cardiovascular and mediastinum: Heart size is normal. Unremarkable mediastinum. Lungs and pleural spaces: Lungs are clear. No sign of infiltrate or mass. No sign of pleural effusion. Apparent increased attenuation of the left hemithorax is secondary to overlying soft tissue as there is no effusion on the lateral. No pneumothorax. Bones and soft tissues: No significant findings. IMPRESSION: No acute cardiopulmonary process. Discharge Plan Discharge Disposition: [facility] Date of Admission: 07/27/24 15:50 Attending Provider on Discharge: Jade Regan Primary Care Provider: French Huddleston Condition: Guarded Discharge Orders: Transfer of Care to Other Hospital (ORDER); Ordered 07/28/24 Ordered By: Jade Regan Oxygen: Yes Oxygen Delivery Method: Nasal Cannula Drips/Lines: peripheral IV x 2 Services not available here: Neurology
--- NOTE | 2024-07-28 12:24 | RESP.RT ---
Pt using home CPAP. Reports of her decreased LOC and being unresponsive. My concern is for airway protection, and watching RR on CPAP. CPAP does not have a back up rate or alarms. Asked for pt to be moved to CCU this AM in rounds. Team agreed. To CCU for closer monitoring.
[2024-07-28] MEDS: cefTRIAXone 1 GM in 0.9 % SODIUM CHLORIDE Mini-bag 100 ML IVPB (12:42)
--- NOTE | 2024-07-28 14:12 | PC.NURSE ---
Discharge: Patient unresponsive during shift. Vitals stable, BP elevated, MD aware, permissive hypertension following stroke. Tele shows sinus bardy. Nurse to nurse given to Ana. Cares done by staff. , Elías, called with update that patient has discharged. Patient able to move in response painful stimuli, however does not open eyes or give verbal response. CPAP on while sleeping.
== END 2024-07-28 14:07 | disposition short-term general hospital (02) | DRG 65 ==
LOC: ED 14:08 → MEDSURG 14:53
PROVIDERS: Internal Medicine; Admitting Provider Family Medicine; Emergency Provider Family Medicine; PCP Family Medicine; Visit Provider Family Medicine
DX: I63.9 Cerebral infarction, unspecified (principal); G81.01 Flaccid hemiplegia affecting right dominant side; I12.0 Hypertensive chronic kidney disease with stage 5 chronic kidney disease or end stage renal disease; N18.5 Chronic kidney disease, stage 5; I67.1 Cerebral aneurysm, nonruptured; R29.810 Facial weakness; R53.1 Weakness; H02.401 Unspecified ptosis of right eyelid; E11.22 Type 2 diabetes mellitus with diabetic chronic kidney disease; R91.8 Other nonspecific abnormal finding of lung field; G47.33 Obstructive sleep apnea (adult) (pediatric); Z99.89 Dependence on other enabling machines and devices; Z79.84 Long term (current) use of oral hypoglycemic drugs; E78.5 Hyperlipidemia, unspecified; Z79.82 Long term (current) use of aspirin; Z86.73 Personal history of transient ischemic attack (TIA), and cerebral infarction without residual deficits; Z85.3 Personal history of malignant neoplasm of breast
CPT/HCPCS: 36415; 70450; 70544; 70549; 70553; 71046; 71250; 74176; 80048; 80053; 81001; 82803; 82962; 83036; 83605; 83735; 83880; 84100; 85025; 85027; 86140; 87040; 87086; 87631; 92610; 93005; 94761; 97116; 97162; 97165; 97530; 99285; A9270; A9575; G0378; J0696; J1953; J2060; J7030; J7050; J7120

== ENCOUNTER 2024-07-28 13:39 | Outpatient (CLI) | payer MEDICARE, OTHER, SELFPAY ==
--- NOTE | 2024-08-17 13:59 | PC.SOCIAL ---
Discharge planning: KUN received voicemail from Mere at [facility] inquiring about the dates that patient was admitted to our hospital. SW called patient's to obtain consent to provide Mere this information. consented. KUN called Mere and informed her that patient was observation on the 07/26, inpatient on 07/27, and transferred on 07/28. Mere had no further questions at this time.
== END 2024-07-28 13:40 | disposition home or self-care (01) ==
LOC: AMB 07-29 11:11
PROVIDERS: PCP Family Medicine; Visit Provider Family Medicine
DX: R41.82 Altered mental status, unspecified (principal); M62.81 Muscle weakness (generalized)
CPT/HCPCS: A0425; A0427